=== PATIENT | female | born 1975 ===

== ENCOUNTER → 2020-04-16 09:29 | Outpatient (BNVA) | payer OTHER, SELFPAY | PROVIDERS: Visit Provider Advanced Practice Midwife | DX: L30.9 Dermatitis, unspecified (principal) | CPT/HCPCS: 99212 ==

== ENCOUNTER → 2020-06-24 08:22 | Outpatient (BNVA) | payer OTHER, SELFPAY | PROVIDERS: PCP Internal Medicine; Visit Provider Obstetrics & Gynecology | DX: N39.3 Stress incontinence (female) (male) (principal) | CPT/HCPCS: 99212 ==

== ENCOUNTER → 2020-07-11 15:18 | Outpatient (BNVA) | payer OTHER, SELFPAY | PROVIDERS: Visit Provider Obstetrics & Gynecology | DX: Z13.89 Encounter for screening for other disorder (principal) | CPT/HCPCS: Q3014 ==

== ENCOUNTER 2020-09-22 09:10 | Outpatient (REF) | payer OTHER, SELFPAY ==
[2020-09-22 10:53] LABS: Hemoglobin 12.5 g/dl (12.0-16.0); Mean Corpuscular HGB Conc 32.1 g/dl (31.0-35.0); Mean Corpuscular Hemoglobin 26.5 pg (27.0-33.0); Mean Corpuscular Volume 82.6 fL (80-98); Platelet Count 351 X10*3/uL (160-400); Red Blood Count 4.72 X10*6/uL (4.20-5.50); Red Cell Distribution Width 14.5 % (11.0-16.0); White Blood Count 9.4 X10*3/uL (4.8-10.8)
[2020-09-22 11:25] LABS: HCG Quantitative < 2 mIU/mL; TSH reflex Free T4 1.15 uIU/mL (0.32-4.0)
[2020-09-22 17:22] LABS: CT PCR NOT DETECTED (Not Detect.); NG PCR NOT DETECTED (Not Detect.)
[2020-09-25 20:47] LABS: HPV mRNA E6/E7 rflx Not Detected (Not Detected)
== END 2020-09-22 09:11 | disposition home or self-care (01) ==
LOC: HO.LAB 09:10
PROVIDERS: PCP Internal Medicine; Visit Provider Obstetrics & Gynecology
DX: Z01.411 Encounter for gynecological examination (general) (routine) with abnormal findings (principal); Z11.51 Encounter for screening for human papillomavirus (HPV); Z11.3 Encounter for screening for infections with a predominantly sexual mode of transmission; N92.1 Excessive and frequent menstruation with irregular cycle; N93.9 Abnormal uterine and vaginal bleeding, unspecified
CPT/HCPCS: 36415; 84443; 84702; 85027; 87491; 87591; 87624; 88142

== ENCOUNTER 2020-10-15 13:10 | Outpatient (REF) | payer OTHER, SELFPAY ==
--- NOTE | ~2020-10-15 | US_ITS ---
EXAMINATION: PELVIC ULTRASOUND CLINICAL INFORMATION: Abnormal bleeding COMPARISON: Previous CT of the abdomen and pelvis July 2020 and pelvic ultrasound August 2019 TECHNIQUE: Transabdominal and transvaginal pelvic ultrasound was performed. Transvaginal exam was performed for better visualization of the uterus and ovaries. FINDINGS: The uterus is anteverted and measures 10.6 x 4.5 x 5.7 cm in dimension. No focal uterine lesion is seen. Endometrial thickness is normal measuring 1 cm. There are nabothian cysts in the cervix. Right ovary measures 2.8 x 1.4 x 1.6 cm. There is a small 2 to 3 mm echogenic focus in the right ovary of uncertain clinical significance. The right ovary is otherwise normal. The left ovary measures 3 x 2 x 2.2 cm. There is a 2 x 1.6 x 1.5 cm complex left ovarian cyst with solid echogenic component and a 1 x 1.3 x 1.5 cm simple left ovarian cyst. There is no fluid in the pelvis. US/US pelvic and transvaginal IMPRESSION: Normal-appearing uterus and endometrium. 2 left ovarian cysts, largest a 2 x 1.6 x 1.5 cm complex cyst.
== END 2020-10-15 13:11 | disposition home or self-care (01) ==
LOC: HO.US 13:10
PROVIDERS: Visit Provider Obstetrics & Gynecology
DX: N93.9 Abnormal uterine and vaginal bleeding, unspecified (principal)
CPT/HCPCS: 76830; 76856

== ENCOUNTER 2020-10-29 10:12 | Outpatient (REF) | payer OTHER, SELFPAY | END 2020-10-29 10:13 | disposition home or self-care (01) | LOC: HO.LAB 10:12 | PROVIDERS: PCP Internal Medicine; Visit Provider Obstetrics & Gynecology | DX: N92.1 Excessive and frequent menstruation with irregular cycle (principal); L91.8 Other hypertrophic disorders of the skin | CPT/HCPCS: 58100; 88305 ==

== ENCOUNTER → 2020-11-05 12:51 | Outpatient (BNVA) | payer OTHER, SELFPAY | PROVIDERS: Visit Provider Obstetrics & Gynecology | DX: N85.02 Endometrial intraepithelial neoplasia [EIN] (principal); Z98.890 Other specified postprocedural states | CPT/HCPCS: 99212 ==

== ENCOUNTER 2020-11-11 11:05 | Outpatient (REF) | payer OTHER, SELFPAY ==
[2020-11-12 09:36] LABS: BV Int Neg Control Negative (Negative); BV Int Pos Control Positive (Positive)
== END 2020-11-11 11:06 | disposition home or self-care (01) ==
LOC: HO.LAB 11:05
PROVIDERS: Visit Provider Advanced Practice Midwife
DX: N89.8 Other specified noninflammatory disorders of vagina (principal)
CPT/HCPCS: 87480; 87510; 87660; 99212

== ENCOUNTER 2020-12-09 13:23 | Outpatient (REF) | payer OTHER, SELFPAY ==
--- NOTE | ~2020-12-09 | MM_ITS ---
EXAMINATION: MM SCREENING DIGITAL BREAST TOMOSYNTHESIS, BILATERAL CLINICAL INFORMATION: Screening. Asymptomatic. The lifetime risk of breast cancer based on the Tyrer-Cuzick Model is 9%. COMPARISON: Mammography: 12/04/2019, 09/21/2018, 09/18/2015 TECHNIQUE: Digital breast tomosynthesis is performed in both the craniocaudal and mediolateral oblique views along with computer-aided detection (CAD). Synthesized 2D images are generated from the tomosynthesis. FINDINGS: There are scattered areas of fibroglandular density (ACR BI-RADS breast composition Category b). There are no significant masses, abnormal calcifications, or other abnormalities. Parenchymal pattern is similar to prior exam. No developing density. There is intramammary node again seen posterior upper outer left breast. The axilla and skin contours are unremarkable. MM/MM tomosynthesis screening BI IMPRESSION: No mammographic evidence of malignancy. ASSESSMENT: BI-RADS 2: Benign RECOMMENDATION: Routine annual mammography screening. This patient's information was entered into a reminder system with a target due date for their next mammogram.
== END 2020-12-09 13:24 | disposition home or self-care (01) ==
LOC: HO.MAMMO 13:23
PROVIDERS: Visit Provider Internal Medicine
DX: Z12.31 Encounter for screening mammogram for malignant neoplasm of breast (principal)
CPT/HCPCS: 77063; 77067

== ENCOUNTER 2021-10-02 21:46 | Emergency (ER) | payer OTHER, SELFPAY ==
[2021-10-02 22:46] VITALS: BP 161/98; PULSE 84; RESP 18; TEMP 37.1; O2SAT 100; BMI 30.6
[2021-10-02 23:13] LABS: Basophils Percent Auto 0.3 % (0-2); Eosinophils Absolute Auto 0.1 X10*3/uL (0.0-0.4); Eosinophils Percent Auto 1.3 % (0-4); Hematocrit 41.4 % (37.0-47.0); Imm Gran Abs Auto 0.02 X10*3/uL (0.00-0.03); Imm Gran Pct Auto 0.2 % (0.0-0.4); Lymphocytes Absolute Auto 3.6 X10*3/uL (1.2-4.9); Lymphocytes Percent Auto 41.7 % (20-40); MANUAL DIFF FLAG NO; Mean Corpuscular HGB Conc 33.8 g/dl (31.0-35.0); Mean Corpuscular Hemoglobin 28.1 pg (27.0-33.0); Mean Corpuscular Volume 83.1 fL (80.0-98.0); Mean Platelet Volume 9.6 fL (9.4-12.3); Monocytes Absolute Auto 0.6 X10*3/uL (0.1-1.2); Neutrophils Absolute Auto 4.3 x10*3/uL (2.0-8.3); Neutrophils Percent Auto 49.5 % (45-73); Platelet Count 372 X10*3/uL (160-400); Red Blood Count 4.98 X10*6/uL (4.20-5.50); Red Cell Distribution Width 12.4 % (11.0-16.0); White Blood Count 8.6 X10*3/uL (4.8-10.8)
[2021-10-02 23:14] LABS: Appearance Urine CLEAR; Color Urine STRAW; Glucose Urine UA NEG (NEG); Leukocyte Esterase Urine NEG (NEG); Nitrite Urine NEG (NEG); Specific Gravity - Urine <= 1.005 (1.005-1.025); Urine Blood NEG (NEG); Urine Ketones NEG (NEG); Urine Protein NEG (NEG-TRACE)
[2021-10-02 23:36] LABS: Alanine Aminotransferase 18 U/L (0-31); Albumin Level 4.9 g/dL (3.5-5.0); Alkaline Phosphatase 83 U/L (39-117); Anion Gap 15 (12-20); Aspartate Amino Transferase 21 U/L (5-31); Bilirubin Total 1.1 mg/dL (0.0-1.0); Blood Urea Nitrogen 13 mg/dL (9-16); Calcium 10.1 mg/dL (8.4-10.2); Carbon Dioxide 29 mmol/L (22-29); Chloride 98 mmol/L (96-108); Creatinine Clr Calc Pharmacy 97.8; Estimated Glomerular Filt Rate > 60; Glucose Random 102 mg/dL (60-115); Potassium 3.5 mmol/L (3.3-5.1); Sodium 138 mmol/L (135-145); Total Protein 8.1 g/dL (6.5-8.0)
--- NOTE | 2021-10-02 23:39 | ECG_ITS ---
Test Reason : HYPERTENTION Blood Pressure : / mmHG Vent. Rate : 072 BPM Atrial Rate : 072 BPM P-R Int : 188 ms QRS Dur : 090 ms QT Int : 416 ms P-R-T Axes : 018 031 -01 degrees QTc Int : 455 ms Normal sinus rhythm Nonspecific ST abnormality Abnormal ECG No previous ECGs available Referred By: Leatha Jacob Electronically Signed By:SHERRY WILLIAM MD
[2021-10-02 23:47] VITALS: BP 135/89; PULSE 73; RESP 18; O2SAT 98
--- NOTE | 2021-10-03 00:04 | ED_ITS ---
HPI - General Adult General Chief complaint: General Medical Stated complaint: High blood pressure Time Seen by Provider: 10/02/21 23:36 Source: patient Mode of arrival: ambulatory Limitations: no limitations History of Present Illness HPI narrative: Patient comes to the emergency room complaining of labile blood pressure. Patient states that she has been seen by her primary care physician, patient is currently taking hydrochlorothiazide and p.r.n. lisinopril. Today patient was started on losartan. They are still trying to stabilize patient's blood pressure. On arrival, blood pressure was 161/98, an hour later it was 135/89. Patient states that she feels ?strange? States she has no headache, no blurred vision. Patient has very nonspecific symptoms. Related Data Home Medications Medication Instructions Recorded Confirmed clonazepam 0.5 mg tablet 0.5 mg PO DAILY PRN 06/24/20 diphenhydramine HCl 25 mg tablet 25 mg PO BEDTIME 06/24/20 hydroxyzine pamoate 25 mg capsule 25 mg PO BID 06/24/20 loratadine 10 mg tablet 10 mg PO DAILY 06/24/20 meclizine 25 mg tablet mg PO 06/24/20 melatonin 5 mg tablet 0 mg PO 06/24/20 multivitamin 1 tab PO DAILY 06/24/20 rosuvastatin 10 mg tablet 10 mg PO DAILY 06/24/20 sertraline 100 mg tablet 300 mg PO Q OTHER DAY PRN 06/24/20 Previous Rx's Medication Instructions Recorded miconazole nitrate 2 % vaginal 1 appful vaginal BEDTIME 7 days 11/11/20 cream (Miconazole-7) #45 grams Allergies Allergy/AdvReac Type Severity Reaction Status Date / Time No Known Allergies Allergy Verified 11/11/20 11:47 [No Known Allergies*] Review of Systems Review of Systems: Constitutional : No Weight loss, No Fever, No Chills, No Night Sweats, No Fatigue, No Malaise ENT/Mouth : No Hearing loss, No Ear Pain, No Nasal Congestion, No Sinus Pain, No Hoarseness, No sore throat, No Rhinorrhea, No Swallowing Difficulty Eyes: No Eye Pain, No Swelling, No Redness, No Foreign Body, No Discharge, No Vision Changes Cardiovascular : No Chest Pain, No SOB, No Dyspnea on Exertion, No Orthopnea, No Edema, No Palpitations, complaining of labile blood pressures Respiratory : No Cough, No Sputum, No Wheezing, No Smoke Exposure, No Dyspnea Gastrointestinal : No Nausea, No Vomiting, No Diarrhea, No Constipation, No abdominal Pain, No Hematochezia, No Melena Genitourinary : no irregular bleeding, No Dysuria, No Urinary Frequency, No Hematuria, No Urinary Incontinence, No Urgency, No Flank Pain, No Urinary Flow Changes, No Hesitancy Musculoskeletal : No joint pain, No Myalgias, No Joint Swelling Skin : No Skin Lesions, No rash Neuro : No Weakness, No Numbness, No Paresthesias, No Loss of Consciousness, No Dizziness, No Headache Psych : No Anxiety/Panic, No Depression, No SI/HI/AH/VH, No Social Issues, Heme/Lymph: No Bruising, No Bleeding,No Lymphadenopathy Endocrine : No Polyuria, No Polydipsia, No Temperature Intolerance [facility] Past Medical History Medical History Aneurysm Dysplasia of cervix, low grade (MORIS 1) HTN (hypertension) Surgical History H/O LEEP History of bilateral tubal ligation Family History Family History Father Colon cancer Social History Social History Alcohol intake: never Patient Tobacco Use Status: Never used Tobacco Use of substances other than those prescribed or required for medical reasons: No Patient : No Gender identity: Female Physical Exam ED Vital Signs: Vital Signs - 24 hr 10/02/21 22:46 10/02/21 23:47 Temperature 98.8 F Pulse Rate 84 73 Respiratory Rate 18 18 Blood Pressure 161/98 H 135/89 Pulse Oximetry 100 98 Oxygen Delivery Method Room Air Room Air BMI result Body Mass Index 30.6 Const Other: Appearance: Alert. Oriented X3. No acute distress. Well appearing, playing in the room with her partner with the otoscope an ophthalmoscope Eyes: Pupils equal, round and reactive to light. ENT: Pharynx normal. Neck: Normal inspection. Neck supple. No lymph nodes noted. No crepitus CVS: Normal heart rate and rhythm. Pulses normal. Normal S1 and S2 Respiratory: No respiratory distress. Breath sounds normal. No Wheezing. No rales Abdomen: Soft and nontender. No rigidity. No distention. Skin: Skin warm and dry. Normal skin color. Normal skin turgor. Extremities: No lower extremity edema. No Lacerations. No Rash Neuro: Oriented X 3. No motor deficit. No sensory deficit. Moving all extremities. No slurred speech. CN 2 through 12 grossly intact Psych: calm, cooperative, normal affect Course Course Course Narrative: At this time, patient's blood pressure is slightly elevated, but not dangerously elevated, patient has no neurological symptoms. Patient is being followed closely by her primary care physician, patient was given a new blood pressure medication, losartan which she has not started yet, 1st dose will be tomorrow. EKG: Normal sinus rhythm, heart rate 72, no ST changes, QTC 455 Medical Decision Making Lab Data Result diagrams: 10/02/21 23:07 10/02/21 23:06 Labs: Lab Results 10/02/21 10/02/21 10/02/21 Range/Units 23:06 23:06 23:07 WBC 8.6 (4.8-10.8) X10*3/uL RBC 4.98 (4.20-5.50) X10*6/uL Hgb 14.0 (12.0-16.0) g/dl Hct 41.4 (37.0-47.0) % MCV 83.1 (80.0-98.0) fL MCH 28.1 (27.0-33.0) pg MCHC 33.8 (31.0-35.0) g/dl RDW 12.4 (11.0-16.0) % Plt Count 372 (160-400) X10*3/uL MPV 9.6 (9.4-12.3) fL Immature Gran % (Auto) 0.2 (0.0-0.4) % Neut % (Auto) 49.5 (45-73) % Lymph % (Auto) 41.7 H (20-40) % Mineral % (Auto) 7.0 (2-11) % Eos % (Auto) 1.3 (0-4) % Baso % (Auto) 0.3 (0-2) % Lymph # (Auto) 3.6 (1.2-4.9) X10*3/uL Mineral # (Auto) 0.6 (0.1-1.2) X10*3/uL Eos # (Auto) 0.1 (0.0-0.4) X10*3/uL Baso # (Auto) 0.0 (0.0-0.2) X10*3/uL Abs Immat Gran (auto) 0.02 (0.00-0.03) X10*3/uL Absolute Neuts (auto) 4.3 (2.0-8.3) x10*3/uL Absolute Nucleated RBC 0.000 (0.0-0.012) X10*3/uL Nucleated RBC % (auto) 0.0 (0.0-0.2) /100WBC Sodium 138 (135-145) mmol/L Potassium 3.5 (3.3-5.1) mmol/L Chloride 98 (96-108) mmol/L Carbon Dioxide 29 (22-29) mmol/L Anion Gap 15 (12-20) BUN 13 (9-16) mg/dL Creatinine 0.81 (0.5-1.4) mg/dL Estim Creat Clear Calc 97.8 Estimated GFR > 60 Random Glucose 102 (60-115) mg/dL Calcium 10.1 (8.4-10.2) mg/dL Total Bilirubin 1.1 H (0.0-1.0) mg/dL AST 21 (5-31) U/L ALT 18 (0-31) U/L Alkaline Phosphatase 83 (39-117) U/L Total Protein 8.1 H (6.5-8.0) g/dL Albumin 4.9 (3.5-5.0) g/dL Urine Color STRAW Urine Appearance CLEAR Urine pH 6.0 (5.0-8.0) Ur Specific [place] <= 1.005 (1.005-1.025) Urine Protein NEG (NEG-TRACE) MG/DL Urine Glucose (UA) NEG (NEG) MG/DL Urine Ketones NEG (NEG) MG/DL Urine Blood NEG (NEG) Urine Nitrite NEG (NEG) Ur Leukocyte Esterase NEG (NEG) Discharge Plan Discharge Clinical Impression: Labile blood pressure Patient Disposition: Home, Self-Care Instructions: Hypertension (ED) Additional Instructions: Please follow-up with your primary care physician tomorrow. If you have any worsening or new symptoms, please return to the emergency room or call 911 Prescriptions: No Action melatonin 5 mg tablet 0 mg PO rosuvastatin 10 mg tablet 10 mg PO DAILY hydroxyzine pamoate 25 mg capsule 25 mg PO BID loratadine 10 mg tablet 10 mg PO DAILY diphenhydramine HCl 25 mg tablet 25 mg PO BEDTIME sertraline 100 mg tablet 300 mg PO Q OTHER DAY PRN clonazepam 0.5 mg tablet 0.5 mg PO DAILY PRN meclizine 25 mg tablet PO multivitamin Tablet 1 tab PO DAILY miconazole nitrate [Miconazole-7] 2 % cream 1 appful vaginal BEDTIME 7 Days Qty: 45 3RF
[2021-10-03 00:48] VITALS: BP 133/85; PULSE 66; RESP 16; O2SAT 96
== END 2021-10-03 00:50 | disposition home or self-care (01) ==
PROVIDERS: Emergency Provider Emergency Medicine; PCP Internal Medicine
DX: R09.89 Other specified symptoms and signs involving the circulatory and respiratory systems (principal); I10 Essential (primary) hypertension; Z79.899 Other long term (current) drug therapy
CPT/HCPCS: 36415; 80053; 81003; 85025; 93005; 99283; 99284

== ENCOUNTER 2021-12-15 12:46 | Outpatient (REF) | payer OTHER, SELFPAY ==
--- NOTE | ~2021-12-15 | MM_ITS ---
EXAMINATION: MM SCREENING DIGITAL BREAST TOMOSYNTHESIS, BILATERAL CLINICAL INFORMATION: Screening. Asymptomatic. The lifetime risk of breast cancer based on the Tyrer-Cuzick Model is 8%. COMPARISON: Mammography: 12/09/2020, 12/04/2019, 09/21/2018 TECHNIQUE: Digital breast tomosynthesis is performed in both the craniocaudal and mediolateral oblique views along with computer-aided detection (CAD). Synthesized 2D images are generated from the tomosynthesis. FINDINGS: There are scattered areas of fibroglandular density (ACR BI-RADS breast composition Category b). There are no significant masses, abnormal calcifications, or other abnormalities. Parenchymal pattern is similar to prior studies. There is no developing density or architectural abnormality. Again, there is intramammary node posterior upper outer left breast. The axilla and skin contours are unremarkable. No significant changes. MM/MM tomosynthesis screening BI IMPRESSION: No mammographic evidence of malignancy. ASSESSMENT: BI-RADS 2: Benign RECOMMENDATION: Routine annual mammography screening. This patient's information was entered into a reminder system with a target due date for their next mammogram.
== END 2021-12-15 12:47 | disposition home or self-care (01) ==
LOC: HO.MAMMO 12:46
PROVIDERS: PCP Internal Medicine; Visit Provider Family Medicine
DX: Z12.31 Encounter for screening mammogram for malignant neoplasm of breast (principal)
CPT/HCPCS: 77063; 77067

== ENCOUNTER 2022-02-26 10:19 | Outpatient (REF) | payer OTHER, SELFPAY ==
--- NOTE | ~2022-02-26 | XR_ITS ---
EXAMINATION: XR KNEE, LEFT CLINICAL INFORMATION: Pain COMPARISON: Previous x-ray February 2016 TECHNIQUE: Four views of the left knee. FINDINGS: Bones and soft tissues are normal. No fracture or joint effusion. Alignment is anatomic. Joint spaces are well maintained. No abnormal soft tissue calcification. XR/XR knee LT 4V IMPRESSION: Normal left knee.
== END 2022-02-26 10:20 | disposition home or self-care (01) ==
LOC: HO.XRAY 10:19
PROVIDERS: PCP Internal Medicine; Visit Provider Internal Medicine
DX: M25.562 Pain in left knee (principal)
CPT/HCPCS: 73564

== ENCOUNTER 2022-04-07 12:57 | Outpatient (REF) | payer OTHER, SELFPAY ==
--- NOTE | ~2022-04-07 | US_ITS ---
EXAMINATION: ULTRASOUND LEFT KNEE CLINICAL INFORMATION: Left knee pain. COMPARISON: Knee radiographs 02/26/2022. TECHNIQUE: Ultrasound was performed in the area of clinical concern in the left popliteal fossa. FINDINGS: An abnormal fluid collection is not seen. The popliteal vein and artery appear normal. US/US extremity nonvascular IMPRESSION: No abnormality is seen.
== END 2022-04-07 12:58 | disposition home or self-care (01) ==
LOC: HO.US 12:57
PROVIDERS: Visit Provider Internal Medicine
DX: M25.562 Pain in left knee (principal)
CPT/HCPCS: 76882

== ENCOUNTER 2022-09-02 07:52 | Outpatient (REF) | payer OTHER, SELFPAY ==
--- NOTE | ~2022-09-02 | XR_ITS ---
EXAMINATION: XR KNEE AP STANDING CLINICAL INFORMATION: Pain COMPARISON: Previous left knee x-ray February 2022 TECHNIQUE: AP bilateral standing view of the knees was obtained. FINDINGS: Bone alignment is normal. No fracture or dislocation. Normal joint spaces. Normal soft tissues. XR/XR knee standing BI IMPRESSION: Normal knees.
== END 2022-09-02 07:53 | disposition home or self-care (01) ==
LOC: HO.HOSX 07:52
PROVIDERS: Visit Provider Physician Assistant
DX: M54.16 Radiculopathy, lumbar region (principal)
CPT/HCPCS: 73565; 99202

== ENCOUNTER 2022-10-15 10:00 | Outpatient (RCR) | payer OTHER, SELFPAY | END 2022-10-15 10:56 | disposition home or self-care (01) | LOC: HO.PT 10:00 | PROVIDERS: PCP Internal Medicine; Visit Provider Nurse Practitioner Primary Care | DX: M25.562 Pain in left knee (principal); M54.50 Low back pain, unspecified | CPT/HCPCS: 97110; 97140; 97162 ==

== ENCOUNTER 2022-11-01 09:58 | Outpatient (AMB) | payer OTHER, SELFPAY ==
--- NOTE | 2022-11-01 10:12 | MHC.OFFVIS ---
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 No complaints. 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) HTN (hypertension) Surgical History (Updated 11/01/22 @ 10:26 by Eder Kurtz MD) H/O LEEP History of bilateral tubal ligation History of hysterectomy Family History (Updated 11/01/22 @ 10:19 by Kelsi Luna CMA) Father Colon cancer Mother HTN (hypertension) Social History (Updated 11/01/22 @ 10:20 by Kelsi Luna CMA) Household Members: Family Housing: House Alcohol intake: never Patient Tobacco Use Status: Former Tobacco user service: No Current occupational status: unemployed Sexually active: Yes Sexual orientation: Straight/Heterosexual Gender identity: Female Female Reproductive History Menstrual Age of Menarche: 13 Menopause type: surgical Total pregnancies: 3 Full term: 3 Number of Living Children: 3 Date of Mammogram: 12/15/21 Review of Systems Const All systems reviewed & are unremarkable except as noted in HPI and below Card Reports as per HPI and Reports no additional complaints Resp Reports as per HPI and Reports no additional complaints GI Reports as per HPI and Reports no additional complaints Reports as per HPI Physical Exam Vital Signs: Last Vital Signs BP 124/78 11/01/22 10:14 BMI result Body Mass Index 30.7 Const General: cooperative, healthy appearing and comfortable General: Yes bladder normal to palpation External Female Exam: No lesion Speculum Exam - Vagina: normal appearance of the vagina, normal vaginal discharge and not erythematous Speculum Exam - Cervix: Cervix absent Bimanual exam- vagina & uterus: bladder normal to palpation and uterus absent Bimanual Exam- Adnexa, other: Other (No masses detected) Assessment & Plan Assessment & Plan (1) Well woman exam: Comment: MORIS 3 in 2016 status post LEEP with positive margin MORIS 1 in 2017 Status post hysterectomy Code(s): Z01.419 - Encounter for gynecological examination (general) (routine) without abnormal findings Plan: Cotesting not indicated this year. Mammogram ordered for 01/01. Counseled the patient about the recommended dietary allowance of 1000 mg of Calcium & 600 IU of vitamin D. The patient was instructed to perform monthly self-breast exams and to schedule an annual exam in a year; will refer the GI for screening colonoscopy. All questions answered and the patient verbalized understanding. Instructed the patient to schedule annual exam in a year Orders: Orders MM screening mammo BI Today Z12.31 - Encounter for screening mammogram for malignant neoplasm of breast Referrals Gastroenterology Referral Z12.11 - Encounter for screening for malignant neoplasm of colon Coding Level of Care Code Est Pt Prev Care 40-64y(70851) Diagnoses Well woman exam Z01.419
[2022-11-01 10:14] VITALS: BP 124/78; BMI 30.7
== END 2022-11-01 10:33 | disposition home or self-care (01) ==
LOC: HO.HWS 09:58
PROVIDERS: PCP Internal Medicine; Visit Provider Obstetrics & Gynecology
DX: Z01.419 Encounter for gynecological examination (general) (routine) without abnormal findings (principal)
CPT/HCPCS: 99396

== ENCOUNTER → 2022-11-01 09:58 | Outpatient (BNVA) | payer OTHER, SELFPAY | PROVIDERS: PCP Internal Medicine; Visit Provider Obstetrics & Gynecology ==

== ENCOUNTER 2022-12-28 12:35 | Outpatient (REF) | payer OTHER, SELFPAY ==
--- NOTE | ~2022-12-28 | MM_ITS ---
EXAMINATION: MM SCREENING DIGITAL BREAST TOMOSYNTHESIS, BILATERAL CLINICAL INFORMATION: Screening. Asymptomatic. COMPARISON: Mammography: This study is compared with prior exams dating back to 2016. TECHNIQUE: Digital breast tomosynthesis is performed in both the craniocaudal and mediolateral oblique views along with computer-aided detection (CAD). Synthesized 2D images are generated from the tomosynthesis. FINDINGS: There are scattered areas of fibroglandular density (ACR BI-RADS breast composition Category b). There are no significant masses, abnormal calcifications, or other abnormalities. MM/MM tomosynthesis screening BI IMPRESSION: No mammographic evidence of malignancy. ASSESSMENT: BI-RADS BI-RADS 1 - Negative RECOMMENDATION: Routine annual mammography screening. 1 year F/U This examination should not preclude the clinical evaluation of a suspicious palpable abnormality. This patient's information was entered into a reminder system with a target due date for their next mammogram.
== END 2022-12-28 12:36 | disposition home or self-care (01) ==
LOC: HO.MAMMO 12:35
PROVIDERS: PCP Internal Medicine; Visit Provider Internal Medicine
DX: Z12.31 Encounter for screening mammogram for malignant neoplasm of breast (principal)
CPT/HCPCS: 77063; 77067

== ENCOUNTER → 2022-12-28 13:00 | Outpatient (BNV) | payer OTHER, SELFPAY | PROVIDERS: PCP Internal Medicine; Visit Provider Radiology Diagnostic Radiology | DX: Z12.31 Encounter for screening mammogram for malignant neoplasm of breast (principal) | CPT/HCPCS: 77063; 77067 ==

== ENCOUNTER → 2023-01-05 13:23 | Outpatient (BNVA) | payer OTHER, SELFPAY | PROVIDERS: PCP Internal Medicine; Visit Provider Nurse Practitioner Family ==

== ENCOUNTER 2023-03-24 10:12 | Outpatient (REF) | payer OTHER, SELFPAY ==
[2023-03-24 12:17] LABS: Alanine Aminotransferase 14 U/L (0-31); Albumin Level 4.5 g/dL (3.5-5.0); Alkaline Phosphatase 64 U/L (39-117); Anion Gap 13 (12-20); Aspartate Amino Transferase 17 U/L (5-31); Bilirubin Direct 0.2 mg/dL (0.0-0.5); Blood Urea Nitrogen 8 mg/dL (9-16); Calcium 9.6 mg/dL (8.4-10.2); Carbon Dioxide 26 mmol/L (22-29); Chloride 102 mmol/L (96-108); Estimated Glomerular Filt Rate > 60; Glucose Random 93 mg/dL (60-115); Sodium 137 mmol/L (135-145); Total Protein 7.8 g/dL (6.5-8.0)
[2023-03-24 12:26] LABS: Cholesterol 205 mg/dL (<200); HDL Cholesterol 35 mg/dL (>40); LDL Cholesterol Calculated 131 mg/dL (<100); Triglycerides 197 mg/dL (<150)
[2023-03-24 12:33] LABS: Reflex LDLD? No
== END 2023-03-24 10:13 | disposition home or self-care (01) ==
LOC: HO.HHCL 10:12
PROVIDERS: Visit Provider Internal Medicine
DX: I10 Essential (primary) hypertension (principal); E78.2 Mixed hyperlipidemia
CPT/HCPCS: 36415; 80048; 80061; 80076

== ENCOUNTER 2023-04-01 12:51 | Outpatient (REF) | payer OTHER, SELFPAY ==
--- NOTE | ~2023-04-01 | US_ITS ---
EXAMINATION: US DIAGNOSTIC ULTRASOUND BREAST, LEFT CLINICAL INFORMATION: Palpable abnormality in left axillary region.. COMPARISON: None available. TECHNIQUE: Ultrasound of the axillary tail of the left breast and axilla is performed with real-time soliz scale imaging and color Doppler. FINDINGS: There is no focal suspicious finding. There is no solid mass, architectural abnormality, duct ectasia, or edema in the soft tissue planes. There are normal-appearing axillary lymph nodes without thickened cortices, and a solitary normal-appearing lymph node in the axillary tail. The patient appears to be feeling the left axillary fat pad. US/US breast LT limited mamm only IMPRESSION: No suspicious findings. Normal lymph nodes in the axilla and axillary tail of the left breast. The patient appears to be palpating/feeling the left axillary fat pad. ASSESSMENT: BI-RADS 2: Benign RECOMMENDATION: Routine annual mammography screening. This patient's information was entered into a reminder system with a target due date for their next mammogram.
== END 2023-04-01 12:52 | disposition home or self-care (01) ==
LOC: HO.MAMMO 12:51
PROVIDERS: Visit Provider Internal Medicine
DX: R22.32 Localized swelling, mass and lump, left upper limb (principal)
CPT/HCPCS: 76642

== ENCOUNTER → 2023-04-01 13:00 | Outpatient (BNV) | payer OTHER, SELFPAY | PROVIDERS: Visit Provider Radiology Diagnostic Radiology | DX: N63.20 Unspecified lump in the left breast, unspecified quadrant (principal) | CPT/HCPCS: 76642 ==

== ENCOUNTER 2023-04-06 12:43 | Outpatient (AMB) | payer OTHER, SELFPAY ==
--- NOTE | 2023-04-06 12:54 | MHC.OFFVIS ---
Intake Intake Visit Reasons: lump Lt armpit Intake Note: This patient presents for an assessment for left axillary lump. Patient c/o; reports occasional discomfort, reports no redness, left axilla. Solution Mixer Required: No Accompanied by: Self / Same As Patient Allergies No Known Allergies [No Known Allergies*] Allergy (Verified 04/06/23 12:59) Medication List - Last Reconciled 04/06/23 by Juvenal Kapoor MD bisacodyl (Dulcolax (bisacodyl)) 10 mg (2 x 5 mg) PO ONCE 1 day cholecalciferol (vitamin D3) 25 mcg PO DAILY clonazepam 0.5 mg PO DAILY PRN diclofenac sodium 75 mg PO BID hydrochlorothiazide 25 mg PO DAILY hydroxyzine pamoate 25 mg PO BID losartan 25 mg PO DAILY meclizine mg PO melatonin 0 mg PO mirtazapine 7.5 mg PO BEDTIME multivitamin 1 tab PO DAILY polyethylene glycol 3350 (Miralax) 238 grams PO ONCE rosuvastatin 20 mg PO BEDTIME sertraline 300 mg PO Q OTHER DAY PRN HPI lump Lt armpit HPI Details 47-year-old female referred for a lump? on her left armpit. She says that she thinks she may have noticed this for about 4 months now. She denies any or tenderness. She just feels that sometimes it looks bigger than usual She was sent for an ultrasound of the soft tissue by her primary care physician and this just showed normal-looking axillary fat pad. She denies any drainage or skin changes. [facility] Medical History (Updated 04/06/23 @ 13:15 by Juvenal Kapoor MD) Mass of left axilla 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, low grade (MORIS 1) Aneurysm HTN (hypertension) Surgical History History of hysterectomy History of bilateral tubal ligation H/O LEEP Family History Father Colon cancer Mother HTN (hypertension) Social History Household Members: Family Housing: House Alcohol intake: never Patient Tobacco Use Status: Former Tobacco user service: No Current occupational status: unemployed Sexual orientation: Straight/Heterosexual Gender identity: Female Female Reproductive History Menstrual Age of Menarche: 13 Review of Systems Const Denies chills and Denies fever(s) Card Denies chest pain, Denies dyspnea and Denies dyspnea on exertion Resp Denies cough, Denies dyspnea and Denies dyspnea on exertion GI Denies hematochezia and Denies change in bowel habits Denies hematuria Musc Denies back pain and Denies limited range of motion Neuro Denies focal weakness and Denies convulsions Psych Denies depression and Denies mood swings Physical Exam Const General: comfortable and no acute distress Orientation/consciousness: patient oriented x3 Neck Neck: Yes no lymphadenopathy Resp Auscultation: clear to auscultation bilaterally Cardio Rhythm: regular rhythm GI Palpation (GI): Soft to palpation, nontender and no guarding Neuro General: patient oriented x3 Extrem Other: Left axilla - very prominent subcutaneous fat, no obvious discrete mass, no skin changes, no induration Assessment & Plan Assessment & Plan (1) Mass of left axilla: Code(s): R22.32 - Localized swelling, mass and lump, left upper limb Plan: She appears to have a very prominent subcutaneous fat pad in the left axilla. I do not feel any discrete mass otherwise. There is evidence of any skin changes She had an ultrasound showing normal-looking subcutaneous fat in the area. I therefore assured her about the above findings. I did tell her that if she feels worsening or any symptoms, she is free to come back to the office to be re-evaluated. She is comfortable with the plan. Coding Level of Care Code New Pt Level 3 (32455) Diagnoses Mass of left axilla R22.32
== END 2023-04-06 13:14 | disposition home or self-care (01) ==
PROVIDERS: PCP Internal Medicine; Visit Provider Surgery
DX: R22.32 Localized swelling, mass and lump, left upper limb (principal)
CPT/HCPCS: 99203

== ENCOUNTER → 2023-04-06 12:43 | Outpatient (BNVA) | payer OTHER, SELFPAY | PROVIDERS: PCP Internal Medicine; Visit Provider Surgery | DX: R22.32 Localized swelling, mass and lump, left upper limb (principal) | CPT/HCPCS: 99202 ==

== ENCOUNTER 2023-05-12 09:09 | Day surgery (SDC) | payer OTHER, SELFPAY ==
[2023-05-12 09:22] VITALS: BMI 29.7
[2023-05-12 09:38] VITALS: BP 152/99; PULSE 84; RESP 20; TEMP 36.6; O2SAT 98
[2023-05-12] MEDS: Lactated Ringers 1,000 ML 50 ML IVCONT (09:41)
--- NOTE | 2023-05-12 09:50 | HO.ANESPROP2 ---
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 Sees Dr Chew. Last visit 11/2022. Stable HTN - took HCTZ this morning Past Medical History Medical History (Updated 05/12/23 @ 09:55 by Theodora Escamilla MD) Cerebral aneurysm Mass of left axilla 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, low grade (MORIS 1) HTN (hypertension) Family History Family History Father Colon cancer Mother HTN (hypertension) Family history of problems with anesthesia: No Surgical History Surgical History H/O brain surgery H/O knee surgery History of hysterectomy History of bilateral tubal ligation H/O LEEP History of Problems with Anesthesia: No Social History Social History Household Members: Family Housing: House Alcohol intake: never Patient Tobacco Use Status: Former Tobacco user Are you DNR?: No Advance Directives: No Advance Directives Information Provided: Yes Nutrition Risks: No Nutritional Risk service: No Current occupational status: unemployed Sexual orientation: Straight/Heterosexual Gender identity: Female Meds Allergies Allergy/AdvReac Type Severity Reaction Status Date / Time No Known Allergies Allergy Verified 04/06/23 12:59 [No Known Allergies*] Active Medications: Current Medications Lactated Ringer's (Lr) 1,000 mls @ 50 mls/hr IVCONT .Q20H ESTRELLITA Last Admin: 05/12/23 09:41 Dose: 50 mls/hr Home Medications Medication Instructions Recorded Confirmed Last Taken Type clonazepam 0.5 mg tablet 0.5 mg PO DAILY PRN 06/24/20 04/06/23 Unknown History hydroxyzine pamoate 25 mg capsule 25 mg PO BID 06/24/20 04/06/23 Unknown History meclizine 25 mg tablet mg PO 06/24/20 04/06/23 Unknown History melatonin 5 mg tablet 0 mg PO 06/24/20 04/06/23 Unknown History multivitamin 1 tab PO DAILY 06/24/20 04/06/23 Unknown History sertraline 100 mg tablet 300 mg PO Q OTHER DAY PRN 06/24/20 04/06/23 Unknown History hydrochlorothiazide 25 mg tablet 25 mg PO DAILY 10/27/21 04/06/23 Unknown History losartan 25 mg tablet 25 mg PO DAILY 09/02/22 04/06/23 Unknown History rosuvastatin 20 mg tablet 20 mg PO BEDTIME 09/02/22 04/06/23 Unknown History cholecalciferol (vitamin D3) 25 25 mcg PO DAILY 11/01/22 04/06/23 Unknown History mcg (1,000 unit) capsule diclofenac sodium 75 mg 75 mg PO BID 01/05/23 04/06/23 Unknown History tablet,delayed release mirtazapine 7.5 mg tablet 7.5 mg PO BEDTIME 01/05/23 04/06/23 Unknown History Exam Height,Weight and Vital Signs: Height 5 ft 6 in Weight 83.461 kg Last Vital Signs Temp 98 F 05/12/23 09:38 Pulse 84 05/12/23 09:38 Resp 20 05/12/23 09:38 BP 152/99 H 05/12/23 09:38 Pulse Ox 98 05/12/23 09:38 O2 Del Method Room Air 05/12/23 09:38 Airway Mallampati Class: II TM Dist: >3cm Neck ROM: Full Loose/Missing/Broken Teeth: Yes (Missing some molars. Denies broken or loose teeth) Heart: RRR Lungs: CTAB Assessment and Plan Assessment Anesthesia Assessment: Anesthesia Plan Discussed and Chart Reviewed Final Anesthetic Review Family History of Problems with Anesthesia: No History of Problems with Anesthesia: No NPO: Yes ASA Class: III Final Preanesthetic Review: No Changes in Pt Med Stat, Meds/Allgs Chart Reviewed, Consent Obtained/Reviewed and Anes Risks/Benef Reviewed Patient Risk: Intermediate Procedure Risk: Low Assessment/Block/Sedation in SS: Assess/Block/Sedation-SS Anesthetic Plan Anesthetic Plan: MAC: and TIVA Disposition: Standard PACU
--- NOTE | 2023-05-12 10:06 | P.HPSUR_ITS ---
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, low grade (MORIS 1) HTN (hypertension)) History of Previous Operations: Relevant previous surgery/procedure and date(s) (H/O brain surgery H/O knee surgery History of hysterectomy History of bilateral tubal ligation H/O LEEP) Allergies: Allergies Allergy/AdvReac Type Severity Reaction Status Date / Time No Known Allergies Allergy Verified 04/06/23 12:59 [No Known Allergies*] Review of Systems Sugical H&P ROS: Negative: Constitution, Cardiovascular, Respiratory, Neurological, Psychiatric, Hem-Onc, Allergic/Immunologic, Gastrointestinal, Genitourinary, Musculoskeletal, Integumentary, Endocrine and Eyes/ Ears/Nose/Throat Exam Surgical H&P Exam: Normal: HEENT, Normal: Heart, Normal: Lungs, Normal: Extremities, Normal: Abdomen, Normal: Skin and Normal: Neurological Plan Diagnosis/Plan: Unchanged I have reviewed the history and physical and performed a pertinent physical examination on my patient. No changes have occurred unless specified. Time Spent With Patient Time: Total time managing care of this patient today ____ minutes.
--- NOTE | 2023-05-12 10:19 | P.OP_ITS ---
Operative Note Operative Note Date of Service: 05/12/23 Narrative: Operative Information Procedure Description: Colonoscopy Indication: screening, Fh CRC Anesthesia: MAC COLONOSCOPY Instrument: Olympus variable stiffness pediatric scope 190L Colonoscopy Monitoring: Vital signs and clinical assessment, continuous EKG monitoring, Pulse oximetry, Carbon Dioxide monitoring and blood pressure monitoring were done throughout the procedure. Colon withdrawal time was 7 minutes. Procedure: The patient was placed in the left lateral decubitis position and pre-procedure medications were administered. After a digital rectal examination of the ano-rectum, the video colonoscope was inserted into the rectum and advanced through the colon to the cecum/TI. The colonoscope was slowly withdrawn in a retrograde panoramic fashion and the colon mucosa was carefully examined including a retroflexed view of the rectum. Findings and interventions are described below. Procedure Difficulty: easy Findings: Terminal Ileum-normal Cecum:normal Right sided retroflexion- few tics seen Ascending Colon: normal Transverse Colon -normal Descending Colon:normal Sigmoid Colon: mild diverticulosis Rectum: Retroflexion with small internal hemorrhoids, grade I Anorectum - normal Colon preparation: [place] Bowel Preparation Scale Right colon; 3 Transverse colon: 3 Left colon; 3 (0 = Unprepared colon segment with mucosa not seen due to solid stool that cannot be cleared. 1 = Portion of mucosa of the colon segment seen, but other areas of the colon segment not well seen due to staining, residual stool and/or opaque liquid. 2 = Minor amount of residual staining, small fragments of stool and/or opaque liquid, but mucosa of colon segment seen well. 3 = Entire mucosa of colon segment seen well with no residual staining, small fragments of stool or opaque liquid) Impression and Post Procedure Diagnosis: internal hemorrhoids diverticular disease Plan: High fiber diet leaflet Avoid straining at stool, epsom salts and sitz bath, anusol supps or cream Repeat Colonoscopy in 5 years due to FH of CRC or earlier if clinically indicated Above findings were reviewed with the patient and relevant handouts were provided if indicated.
[2023-05-12 10:51] VITALS: BP 108/78; PULSE 91; RESP 16; TEMP 36.3; O2SAT 97
[2023-05-12 11:06] VITALS: BP 129/88; PULSE 79; RESP 14; O2SAT 98
[2023-05-12 11:19] VITALS: BP 129/89; PULSE 76; RESP 16; TEMP 36.6; O2SAT 99
== END 2023-05-12 11:44 | disposition home or self-care (01) ==
PROVIDERS: PCP Internal Medicine; Visit Provider Internal Medicine Gastroenterology
PROC: 0DJD8ZZ Inspection of Lower Intestinal Tract, Via Natural or Artificial Opening Endoscopic (ICD-10-PCS; CPT 45378; principal; 2023-05-12 11:50)
DX: Z12.11 Encounter for screening for malignant neoplasm of colon (principal); K57.30 Diverticulosis of large intestine without perforation or abscess without bleeding; K64.0 First degree hemorrhoids; Z80.0 Family history of malignant neoplasm of digestive organs; I10 Essential (primary) hypertension; N85.02 Endometrial intraepithelial neoplasia [EIN]; Z90.710 Acquired absence of both cervix and uterus; Z87.891 Personal history of nicotine dependence
CPT/HCPCS: G0105; J2704

== ENCOUNTER → 2023-05-12 09:09 | Outpatient (BNV) | payer OTHER, SELFPAY | PROVIDERS: PCP Internal Medicine; Visit Provider Internal Medicine Gastroenterology | DX: Z12.11 Encounter for screening for malignant neoplasm of colon (principal); Z86.010 Personal history of colon polyps; K57.30 Diverticulosis of large intestine without perforation or abscess without bleeding; K64.0 First degree hemorrhoids | CPT/HCPCS: G0105 ==

== ENCOUNTER 2023-06-14 11:12 | Outpatient (AMB) | payer OTHER, SELFPAY ==
--- NOTE | 2023-06-14 11:23 | A.OFFVIS_ITS ---
Intake Vital Signs 06/14/23 11:27 Height 5 ft 6 in Weight 189 lb 9.561 oz BMI 30.6 BP 135/77 Blood Pressure Location Lt brachial Position Sitting Pulse 70 Intake Visit Reasons: s/p colon Intake Note: Denise presents in the office as a follow up colonoscopy. CC: She states that she is just here for results - no concerns. Certified Meeting Professional Required: No Allergies No Known Allergies [No Known Allergies*] Allergy (Verified 06/14/23 11:25) HPI s/p colon HPI Details LAST VISIT: Screen for colon cancer Patient denies any GI, cardiac or respiratory symptoms.? Denies any issues with anesthesia in the past.? Denies any history of sleep apnea.? 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 Patient has no seizure has had sedation without any issues in the past. No history infectious diseases in the past or present.? Not on any anticoagulation therapy.? No family or personal history of colon cancer or polyps.? Patient denies melena, hematochezia, unintentional weight loss or ribbon like stools.? Discussed at length the pre-procedure,? prep, diet & medications as well as what to expect prior, during and after the procedure.?? Stressed the importance of good bowel prep. ?Recommended the use of Vaseline or Calmoseptine OTC & baby wipes with bowel movements to promote comfort.? ?Patient verbalizes understanding and agrees to plan of care.? She was given the opportunity to ask questions and all questions answered.? We will see her after the procedure.? History of subarachnoid hemorrhage Plan Medications New bisacodyl (Dulcolax (bisacodyl)) take 2 tabs at noon the day before your colonoscopy 10 mg (2 x 5 mg) PO ONCE 1 day 2 tabs 0R F Z12.11 polyethylene glycol 3350 (Miralax) As directed by gastroenterology department at [facility] 238 grams PO ONCE 238 grams 0RF Z12.11 COLONOSCOPY Findings: Terminal Ileum-normal Cecum:normal Right sided retroflexion- few tics seen Ascending Colon: normal Transverse Colon -normal Descending Colon:normal Sigmoid Colon: mild diverticulosis Rectum: Retroflexion with small internal hemorrhoids, grade I Anorectum - normal Colon preparation: [place] Bowel Preparation Scale Right colon; 3 Transverse colon: 3 Left colon; 3 (0 = Unprepared colon segment with mucos a not seen due to solid stool that cannot be cleared. 1 = Portion of mucosa of the colon segme nt seen, but other areas of the colon segment not well seen due to staining, residual stool and/or opaque liquid. 2 = Minor amount of residual staining, s mall fragments of stool and/or opaque liquid, but mucosa of colon segment seen well. 3 = Entire mucosa of colon segment seen well with no residual staining, small fragments of stool or opaque liquid) Impression and Post Procedure Diagnosis: internal hemorrhoids diverticular disease Plan: High fiber diet leaflet Avoid straining at stool, epsom salts and sitz bath, anusol supps or cream Repeat Colonoscopy in 5 years due to FH of CRC or earlier if clinically indicated TODAY'S VISIT: Patient is here today for follow-up and to discuss colonoscopy results. Patient had no polyps, internal hemorrhoids and diverticulosis found. Patient however will return for colorectal screening in 5 years due to family history of CRC. Patient reports that she has been feeling well. Denies any ill effects from the prep, anesthesia or procedure itself. Reports that she is not emptying her bowels completely. Patient denies melena, hematochezia, unintentional weight loss or ribbon like stools denies any other GI concerning symptoms. 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, low grade (MORIS 1) HTN (hypertension) Surgical History (Updated 06/14/23 @ 11:24 by MAYE Slaughter) Hx of colonoscopy H/O brain surgery H/O knee surgery History of hysterectomy History of bilateral tubal ligation H/O LEEP Family History Father Colon cancer Mother HTN (hypertension) Social History Household Members: Family Housing: House Alcohol intake: never Patient Tobacco Use Status: Former Tobacco user service: No Current occupational status: unemployed Sexual orientation: Straight/Heterosexual Gender identity: Female Female Reproductive History Menstrual Age of Menarche: 13 Review of Systems Const Denies weight gain and Denies weight loss ENT Reports no additional complaints, Denies dysphagia and Denies odynophagia Card Reports no additional complaints Resp Reports no additional complaints GI Denies abdominal pain, Denies belching, Denies melena, Denies bloating, Reports constipation, Denies dysphagia, Denies excessive flatus, Denies dyspepsia, Denies heartburn, Denies diarrhea, Denies loose stools, Denies nausea, Denies odynophagia and Denies vomiting Reports no additional complaints Musc Reports no additional complaints Neuro Reports no additional complaints Psych Reports no additional complaints Endo Reports no additional complaints Physical Exam Vital Signs: Last Vital Signs Pulse 70 06/14/23 11:27 BP 135/77 06/14/23 11:27 BMI result Body Mass Index 30.6 Const General: healthy appearing, no acute distress and well developed Nutritional Appearance: obese Orientation/consciousness: patient oriented x3 Resp Effort & Inspection: normal respiratory effort, able to speak in complete sentences, no tracheal deviation and symmetric chest movement Auscultation: clear to auscultation bilaterally Cardio Rate: regular rate GI Inspection: Yes normal to inspection, No distended and Yes obesity Palpation (GI): Soft to palpation, not firm, nontender and No hepatosplenomegaly present Auscultation: normal bowel sounds General: Yes no CVA tenderness Back/Spine/Pelvis Back: no CVA tenderness Skin General skin exam: elasticity normal, turgor normal and dry skin Neuro General: patient oriented x3 Psych Appearance: grossly normal Mental Status: mental status grossly normal Assessment & Plan Assessment & Plan (1) Diverticulosis: Code(s): K57.90 - Diverticulosis of intestine, part unspecified, without perforation or abscess without bleeding (2) Status post colonoscopy: Code(s): Z98.890 - Other specified postprocedural states (3) Constipation: Code(s): K59.00 - Constipation, unspecified Qualifiers: Constipation type: slow transit constipation Qualified Code(s): K59.01 - Slow transit constipation Plan Patient will return for colonoscopy in 5 years, sooner if clinically necessary. Patient will start taking senna and Citrucel. Patient was encouraged to increase fluid intake and activity to promote better bowel motility. Discussed with patient high-fiber diet. List of food high in fiber given to patient. Patient will return in 5 weeks , sooner on as needed basis. Patient is agreeable to this plan and verbalizes understanding of instructions. She was given the opportunity to ask questions and all questions answered. Thank you for allowing me to participate in her care Medications: New sennosides (Natural Senna Laxative) 17.2 mg (2 x 8.6 mg) PO BEDTIME 180 tabs 3RF constipation K59.00 - Constipation, unspecified methylcellulose (laxative) (Citrucel) take it with full glass of water 500 mg PO DAILY 90 tabs 2RF K59.00 - Constipation, unspecified Coding Level of Care Code Est Pt Level 3 (98843) Diagnoses Diverticulosis K57.90 Status post colonoscopy Z98.890 Slow transit constipation K59.01 Constipation type: slow transit constipation Time Spent (min) 25 Comment 15 minutes spent with patient and additional 10 minutes spent reviewing her records
[2023-06-14 11:27] VITALS: BP 135/77; PULSE 70; BMI 30.6
== END 2023-06-14 11:48 | disposition home or self-care (01) ==
PROVIDERS: PCP Internal Medicine; Visit Provider Nurse Practitioner Family
DX: K57.90 Diverticulosis of intestine, part unspecified, without perforation or abscess without bleeding (principal); Z98.890 Other specified postprocedural states; K59.01 Slow transit constipation
CPT/HCPCS: 99213

== ENCOUNTER → 2023-06-14 11:12 | Outpatient (BNVA) | payer OTHER, SELFPAY | PROVIDERS: PCP Internal Medicine; Visit Provider Nurse Practitioner Family | DX: K57.90 Diverticulosis of intestine, part unspecified, without perforation or abscess without bleeding (principal); K59.01 Slow transit constipation; Z98.890 Other specified postprocedural states | CPT/HCPCS: 99212 ==

== ENCOUNTER 2023-07-27 09:12 | Outpatient (AMB) | payer OTHER, SELFPAY ==
--- NOTE | 2023-07-27 09:16 | A.OFFVIS_ITS ---
Intake Vital Signs 07/27/23 09:17 Height 5 ft 6 in Weight 189 lb 2.506 oz BMI 30.5 Blood Pressure Location Lt brachial Position Sitting Intake Visit Reasons: 6 week follow up Intake Note: Patient here for 2m f/u constipation. Patient taking Citrucel, senna. 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
[2023-07-27 09:17] VITALS: BP 135/74; PULSE 66; BMI 30.5
--- NOTE | 2023-07-27 09:20 | A.OFFVIS_ITS ---
Intake Vital Signs 07/27/23 09:17 Height 5 ft 6 in Weight 189 lb 2.506 oz BMI 30.5 BP 135/74 Blood Pressure Location Lt brachial Position Sitting Pulse 66 Intake Visit Reasons: 6 week follow up Intake Note: Patient here for 2m f/u constipation. Patient taking senna and citrucel. Patient c/o: BM daily but reports stomach discomfort. Marketing Strategist Required: No Accompanied by: Self / Same As Patient Allergies No Known Allergies [No Known Allergies*] Allergy (Verified 07/27/23 09:23) HPI 6 week follow up HPI Details LAST VISIT: Diverticulosis Status post colonoscopy Constipation Plan Patient will return for colonoscopy in 5 years, sooner if clinically necessary. Patient will start taking senna and Citrucel. Patient was encouraged to increase fluid intake and activity to promote better bowel motility. Discussed with patient high-fiber diet. List of food high in fiber given to patient. Patient will return in 5 weeks , sooner on as needed basis. Patient is agreeable to this plan and verbalizes understanding of instructions. She was given the opportunity to ask questions and all questions answered. ? Thank you for allowing me to participate in her care Medications New sennosides (Natural Senna Laxative) 17.2 mg (2 x 8.6 mg) PO BEDTIME 180 tabs 3RF constipation K59.00 methylcellulose (laxative) (Citrucel) take it with full glass of water 500 mg PO DAILY 90 tabs 2RF K59.00 TODAY'S VISIT Patient is here today for follow-up. Patient reports that she has been doing well, however she is starting to become more constipated. In the beginning she reports that Senokot has worked and now she is having trouble moving her bowels. There is day or 2 that she has no bowel movement. Feels bloated and has abdominal cramping. Patient reports that she is drinking water, change her diet. Eating more vegetables. Patient denies melena, hematochezia, unintentional weight loss or ribbon like stools. Patient denies dyspepsia, dysphagia or odynophagia. Reports to have occasional reflux depending on what she eats. Patient denies eating late at night. Postprandial abdominal bloating frequently. More now when she is constipated. 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, low grade (MORIS 1) HTN (hypertension) Surgical History (Updated 06/14/23 @ 11:24 by Windy Alicia Chin) Hx of colonoscopy H/O brain surgery H/O knee surgery History of hysterectomy History of bilateral tubal ligation H/O LEEP Family History Father Colon cancer Mother HTN (hypertension) Social History Household Members: Family Housing: House Alcohol intake: never Patient Tobacco Use Status: Former Tobacco user service: No Current occupational status: unemployed Sexual orientation: Straight/Heterosexual Gender identity: Female Female Reproductive History Menstrual Age of Menarche: 13 Review of Systems Const Denies weight gain and Denies weight loss ENT Reports no additional complaints, Denies dysphagia and Denies odynophagia Card Reports no additional complaints Resp Reports no additional complaints GI Reports abdominal pain (Occasional), Denies belching, Denies melena, Reports bloating, Denies change in bowel habits, Reports constipation, Denies dysphagia, Denies excessive flatus, Denies dyspepsia, Denies heartburn, Denies diarrhea, Denies loose stools, Denies nausea, Denies odynophagia and Denies vomiting Musc Reports no additional complaints Neuro Reports no additional complaints Psych Reports no additional complaints Endo Reports no additional complaints Physical Exam Vital Signs: BMI result Body Mass Index 30.5 Const General: healthy appearing, no acute distress and well developed Nutritional Appearance: well nourished Orientation/consciousness: patient oriented x3 Resp Effort & Inspection: normal respiratory effort, able to speak in complete sentences, no tracheal deviation and symmetric chest movement Auscultation: clear to auscultation bilaterally Cardio Rate: regular rate GI Inspection: Yes normal to inspection and No distended Palpation (GI): Soft to palpation, not firm, nontender and No hepatosplenomegaly present Auscultation: normal bowel sounds General: Yes no CVA tenderness Back/Spine/Pelvis Back: no CVA tenderness Skin General skin exam: elasticity normal, turgor normal and dry skin Neuro General: patient oriented x3 Psych Appearance: grossly normal Mental Status: mental status grossly normal Assessment & Plan Assessment & Plan (1) Diverticulosis: Code(s): K57.90 - Diverticulosis of intestine, part unspecified, without perforation or abscess without bleeding (2) Constipation: Code(s): K59.00 - Constipation, unspecified Qualifiers: Constipation type: slow transit constipation Qualified Code(s): K59.01 - Slow transit constipation (3) Postprandial abdominal bloating: Code(s): R14.0 - Abdominal distension (gaseous) Plan Patient will start taking Dulcolax and stop Senokot. Increase fluid intake and activity to promote better bowel motility. Avoid dietary triggers and late night snacking. Staying upright for minimum 3 hours after meals discussed with patient. Discussed with patient low FODMAP diet. Reports postprandial abdominal bloating. List of food recommended as well as list of food to avoid given to patient. Patient will return in 6 months, sooner on as needed basis. Patient is agreeable to this plan and verbalizes understanding of instructions. She was given the opportunity to ask questions and all questions answered Thank you for allowing me to participate in her care Medications: New bisacodyl (Dulcolax (bisacodyl)) 10 mg (2 x 5 mg) PO BEDTIME 60 tabs 4RF Discontinued sennosides (Natural Senna Laxative) Discontinued Reason: Doctor's Order 17.2 mg (2 x 8.6 mg) PO BEDTIME 180 tabs 3RF constipation K59.00 - Constipation, unspecified Coding Level of Care Code Est Pt Level 3 (82850) Diagnoses Diverticulosis K57.90 Slow transit constipation K59.01 Constipation type: slow transit constipation Postprandial abdominal bloating R14.0 Time Spent (min) 25 Comment 15 minutes spent with patient and additional 10 minutes spent reviewing her records
== END 2023-07-27 09:38 | disposition home or self-care (01) ==
PROVIDERS: PCP Internal Medicine; Visit Provider Nurse Practitioner Family
DX: K57.90 Diverticulosis of intestine, part unspecified, without perforation or abscess without bleeding (principal); K59.01 Slow transit constipation; R14.0 Abdominal distension (gaseous)
CPT/HCPCS: 99213

== ENCOUNTER → 2023-07-27 09:12 | Outpatient (BNVA) | payer OTHER, SELFPAY | PROVIDERS: PCP Internal Medicine; Visit Provider Nurse Practitioner Family | DX: K57.90 Diverticulosis of intestine, part unspecified, without perforation or abscess without bleeding (principal); K59.01 Slow transit constipation; R14.0 Abdominal distension (gaseous) | CPT/HCPCS: 99212 ==

== ENCOUNTER 2023-11-15 13:25 | Outpatient (REF) | payer OTHER, SELFPAY ==
--- NOTE | ~2023-11-15 | XR_ITS ---
EXAMINATION: XR LUMBOSACRAL SPINE WITH OBLIQUES CLINICAL INFORMATION: Low back pain radiating to left leg COMPARISON: CT abdomen pelvis 07/15/2020 TECHNIQUE: AP, both oblique, and lateral views of the lumbar spine. Lateral view of the lumbosacral junction. FINDINGS: Degenerative changes are present with some mild narrowing at most levels with the exception of L3-L4. Mild endplate changes are present at all levels with some mild osteophytes. The vertebral bodies and posterior elements are normal. The facet joints are unremarkable. The vertebral alignment is normal. The paraspinal soft tissues are normal. XR/XR lumbar spine 4V min IMPRESSION: Mild degenerative changes in the lumbar spine.
== END 2023-11-15 13:26 | disposition home or self-care (01) ==
LOC: HO.HHCX 13:25
PROVIDERS: Visit Provider Internal Medicine
DX: M54.50 Low back pain, unspecified (principal); M79.605 Pain in left leg
CPT/HCPCS: 72110

== ENCOUNTER 2023-12-28 09:41 | Outpatient (REF) | payer OTHER, SELFPAY ==
[2023-12-31 10:08] LABS: HPV mRNA E6/E7 Not Detected (Not Detected)
== END 2023-12-28 09:42 | disposition home or self-care (01) ==
LOC: HO.LNP 09:41
PROVIDERS: PCP Internal Medicine; Visit Provider Obstetrics & Gynecology
DX: Z01.419 Encounter for gynecological examination (general) (routine) without abnormal findings (principal)
CPT/HCPCS: 87624; 88175

== ENCOUNTER 2023-12-28 09:41 | Outpatient (AMB) | payer OTHER, SELFPAY ==
[2023-12-28 09:53] VITALS: BP 148/96; BMI 29.5
--- NOTE | 2023-12-28 09:53 | A.OFFVIS_ITS ---
Vital Signs 12/28/23 09:53 Height 5 ft 6 in Weight 183 lb BMI 29.5 BP 148/96 H Intake Visit Reasons: Annual Bird Keeper Required: No Information Interpreted: non-clinical & clinical Siding Stapler: Siding Stapler Present (Kelsi Luna DWIGHTChin) Accompanied by: Self / Same As Patient Allergies No Known Allergies [No Known Allergies*] Allergy (Verified 12/28/23 09:55) HPI Comments Details: Presenting for annual exam. No complaints. 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, low grade (MORIS 1) HTN (hypertension) Surgical History Hx of colonoscopy H/O brain surgery H/O knee surgery History of hysterectomy History of bilateral tubal ligation H/O LEEP Family History Father Colon cancer Mother HTN (hypertension) Social History Household Members: Family Housing: House Alcohol intake: never Patient Tobacco Use Status: Former Tobacco user service: No Current occupational status: unemployed Sexual orientation: Straight/Heterosexual Gender identity: Female Female Reproductive History Menstrual Age of Menarche: 13 Total pregnancies: 3 Full term: 3 Number of Living Children: 3 Date of last pap smear: 09/23/20 Date of Mammogram: 12/28/22 Review of Systems Const All systems reviewed & are unremarkable except as noted in HPI and below Card Reports as per HPI and Reports no additional complaints Resp Reports as per HPI and Reports no additional complaints GI Reports as per HPI and Reports no additional complaints Reports as per HPI Physical Exam Vital Signs: Last Vital Signs BP 148/96 H 12/28/23 09:53 BMI result Body Mass Index 29.5 Const General: cooperative, healthy appearing and comfortable General: Yes bladder normal to palpation External Female Exam: No lesion Speculum Exam - Vagina: normal appearance of the vagina, normal vaginal discharge and not erythematous Speculum Exam - Cervix: Cervix absent Bimanual exam- vagina & uterus: bladder normal to palpation and uterus absent Bimanual Exam- Adnexa, other: Other (No masses detected) Assessment & Plan Assessment & Plan (1) Well woman exam: Comment: MORIS 3 in 2016 status post LEEP with positive margin Status post hysterectomy Code(s): Z01.419 - Encounter for gynecological examination (general) (routine) without abnormal findings Category: Medical Plan: Vaginal Cotesting done. Mammogram ordered. Counseled the patient about the recommended dietary allowance of 1000 mg of Calcium & 600 IU of vitamin D. The patient was instructed to perform monthly self-breast exams and to schedule an annual exam in a year; All questions answered and the patient verbalized understanding. Instructed the patient to schedule annual exam in a year Orders: Orders MM tomosynthesis screening BI Today Z12.31 - Encounter for screening mammogram for malignant neoplasm of breast Coding Level of Care Code Est Pt Prev Care 40-64y(90129) Diagnoses Well woman exam Z01.419
== END 2023-12-28 10:21 | disposition home or self-care (01) ==
PROVIDERS: PCP Internal Medicine; Visit Provider Obstetrics & Gynecology
DX: Z01.419 Encounter for gynecological examination (general) (routine) without abnormal findings (principal)
CPT/HCPCS: 99396

== ENCOUNTER 2024-01-03 12:36 | Outpatient (REF) | payer OTHER, SELFPAY ==
--- NOTE | ~2024-01-03 | MM_ITS ---
EXAMINATION: MM SCREENING DIGITAL BREAST TOMOSYNTHESIS, BILATERAL CLINICAL INFORMATION: Screening. Asymptomatic. COMPARISON: Mammography: Comparison is made with available priors TECHNIQUE: Digital breast mammography with tomosynthesis is performed in both the craniocaudal and mediolateral oblique views along with computer-aided detection (CAD). FINDINGS: There are scattered areas of fibroglandular density (ACR BI-RADS breast composition Category b). Right: There are no significant masses, abnormal calcifications, or other abnormalities. Left: Asymmetry with questioned distortion lateral breast middle depth on CC view. No suspicious calcifications or other abnormal findings. MM/MM tomosynthesis screening BI IMPRESSION: Additional imaging is recommended ASSESSMENT: BI-RADS BI-RADS 0 - Incomplete: Needs additional Imaging. RECOMMENDATION: 1. Additional views of the left breast 2. Targeted ultrasound if warranted after review of the additional views. 3. Radiology department staff will contact the patient for additional imaging. Additional Imaging required This examination should not preclude the clinical evaluation of a suspicious palpable abnormality. This patient's information was entered into a reminder system with a target due date for their next mammogram. Electronically signed by: Brianda Brooks DO 01/13/2024 08:13 PM EDT
== END 2024-01-03 12:37 | disposition home or self-care (01) ==
LOC: HO.MAMMO 12:36
PROVIDERS: PCP Internal Medicine; Referring Provider Obstetrics & Gynecology; Visit Provider Internal Medicine
DX: Z12.31 Encounter for screening mammogram for malignant neoplasm of breast (principal)
CPT/HCPCS: 77063; 77067

== ENCOUNTER → 2024-01-03 13:00 | Outpatient (BNV) | payer OTHER, SELFPAY | PROVIDERS: PCP Internal Medicine; Referring Provider Obstetrics & Gynecology; Visit Provider Internal Medicine | DX: Z12.31 Encounter for screening mammogram for malignant neoplasm of breast (principal) | CPT/HCPCS: 77063; 77067 ==

== ENCOUNTER 2024-01-17 13:45 | Outpatient (REF) | payer OTHER, SELFPAY ==
--- NOTE | ~2024-01-17 | MM_ITS ---
EXAMINATION: MM DIAGNOSTIC DIGITAL BREAST TOMOSYNTHESIS, LEFT CLINICAL INFORMATION: Diagnostic to evaluate one view asymmetry slightly lateral central breast seen on screening exam CC view only; no definite MLO correlate. COMPARISON: Mammography: 12/04/2019, and exams dating back to 09/18/2015. TECHNIQUE: Digital breast tomosynthesis is performed in the following views: Full field 3-D digital left mediolateral view, as well as a 3-D spot compression left CC view. Computer-aided diagnosis was used for this study. FINDINGS: There are scattered areas of fibroglandular density (ACR BI-RADS breast composition Category b). The central slightly lateral asymmetry dissipates completely on spot compression view, consistent with superimposition artifact of normal overlapping tissues. No persistent suspicious finding. There is redemonstration of an intramammary lymph node in the left axillary tail. MM/MM tomosynthesis added views L IMPRESSION: There are no persistent findings suspicious for malignancy. Recommend the patient return to routine annual screening. ASSESSMENT: BI-RADS BI-RADS 2 - Benign Findings RECOMMENDATION: 1 year F/U Results were provided to the patient at time of visit by the technologist. This patient's information was entered into a reminder system with a target due date for their next mammogram. Electronically signed by: Cesar Rainey MD 01/17/2024 02:36 PM EDT
== END 2024-01-17 13:46 | disposition home or self-care (01) ==
LOC: HO.MAMMO 13:45
PROVIDERS: Visit Provider Internal Medicine
DX: N64.89 Other specified disorders of breast (principal)
CPT/HCPCS: 77061; 77065

== ENCOUNTER → 2024-01-17 14:00 | Outpatient (BNV) | payer OTHER, SELFPAY | PROVIDERS: Visit Provider Radiology Diagnostic Radiology | DX: N63.32 Unspecified lump in axillary tail of the left breast (principal) | CPT/HCPCS: 77065; G0279 ==

== ENCOUNTER 2024-01-25 09:09 | Outpatient (AMB) | payer OTHER, SELFPAY ==
[2024-01-25 09:12] VITALS: BP 168/108; PULSE 80; O2SAT 98
--- NOTE | 2024-01-25 09:12 | A.OFFVIS_ITS ---
Vital Signs 01/25/24 09:12 Height 5 ft 6 in Weight 186 lb 1.122 oz BMI 30.0 BP 168/108 H Blood Pressure Location Lt brachial Position Sitting Pulse 80 Pulse Source Pulse Oximeter Pulse Oximetry (%) 98 Oxygen Delivery Method Room Air Intake Visit Reasons: 6 month follow up Intake Note: Denise presents in office today for a scheduled 6 mos FUV. CC; Since last visit; labs ordered ? none, Rx ordered ? dulcolax, diagnostics/images ordered ? none. Relevant GI Sx as reported per pt. ?Nausea and dizziness. ?Reflux ?Dysphagia ?Fecal abnormalities -- Constipation, diarrhea intermittently. Pt reports new onset of dark stools within the last week. Pt reports having cramping and constant pain in the lower quadrants B/L. ?Bloating -- Excessive gas production ?Abdominal distention ?Hx of any recent surgeries? None Pt states that they have been taking the dulcolax as instructed but have not noticed very much relief. Pt reports pain is currently 8/10 pain which is consta nt. Pt states that the pain is often aching, sharp and stabbing. Pt states that pain is present B/L but worse on R. Pt reports having BM approximately every 36- 48 hours. Pt reports BM is often small and hard pieces of stool when they are not having diarrhea. Pt has been taking her HTN medication and did take it this morning approx. 2 hours ago. Pt reports that they recently increased the dose of this medication. Allergies No Known Allergies [No Known Allergies*] Allergy (Verified 01/25/24 09:13) HPI HPI 6 month follow up: Details: LAST VISIT: Diverticulosis Constipation Postprandial abdominal bloating Plan Patient will start taking Dulcolax and stop Senokot. Increase fluid intake and activity to promote better bowel motility. Avoid dietary triggers and late night snacking. Staying upright for minimum 3 hours after meals discussed with patient. Discussed with patient low FODMAP diet. Reports postprandial abdominal bloating. List of food recommended as well as list of food to avoid given to patient. Patient will return in 6 months, sooner on as needed basis. Patient is agreeable to this plan and verbalizes understanding of instructions. She was given the opportunity to ask questions and all questions answered ? Thank you for allowing me to participate in her care Medications New bisacodyl (Dulcolax (bisacodyl)) 10 mg (2 x 5 mg) PO BEDTIME 60 tabs 4RF Discontinued sennosides (Natural Senna Laxative) Discontinued Reason: Doctor's Order 17.2 mg (2 x 8.6 mg) PO BEDTIME 180 tabs 3RF constipation K59.00 TODAY'S VISIT Patient is here today for follow-up. Since the last time I have seen her patient has not been feeling any better. Takes Citrucel in the morning and Dulcolax in the evening. Bowel movement the next day. Patient reports that her bowels are usually loose, and she feels like she does not empty them completely. If she does not take Dulcolax her bowels are small pieces of hard stool. Patient reports that she also has cramping in the left lower quadrant. Patient also reports abdominal bloating, feeling very gassy. More constipated in the last week or so. Darker stools than usual. Patient reports to have acid reflux and occasional nausea. Acid reflux after anything she eats. Not on any PPI currently. Patient also reports postprandial epigastric pain. Patient reports occasional trouble swallowing solid food. Feels like sometimes food is coming back after she eats. Patient usually eats rice and beans and pasta. Occasional fast food. Patient also reports lower back pain bilaterally. Denies any injuries. History of hysterectomy in 2020. Patient denies melena, hematochezia, unintentional weight loss or ribbon like stools. 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, low grade (MORIS 1) HTN (hypertension) Surgical History Hx of colonoscopy H/O brain surgery H/O knee surgery History of hysterectomy History of bilateral tubal ligation H/O LEEP Family History Father Colon cancer Mother HTN (hypertension) Social History Household Members: Family Housing: House Alcohol intake: never Patient Tobacco Use Status: Former Tobacco user service: No Current occupational status: unemployed Sexual orientation: Straight/Heterosexual Gender identity: Female Female Reproductive History Menstrual Age of Menarche: 13 Review of Systems Const Denies weight gain and Denies weight loss ENT Reports no additional complaints, Denies dysphagia and Denies odynophagia Card Reports no additional complaints Resp Reports no additional complaints GI Reports abdominal pain (LLQ), Denies belching, Denies melena, Reports bloating, Denies change in bowel habits, Reports constipation, Denies dysphagia, Denies excessive flatus, Denies dyspepsia, Reports heartburn, Denies diarrhea, Denies loose stools, Denies nausea, Denies odynophagia and Denies vomiting Reports no additional complaints Musc Reports no additional complaints Neuro Reports no additional complaints Psych Reports no additional complaints Endo Reports no additional complaints Physical Exam Vital Signs: Last Vital Signs Pulse 80 01/25/24 09:12 BP 168/108 H 01/25/24 09:12 Pulse Ox 98 01/25/24 09:12 Oxygen Delivery Method Room Air 01/25/24 09:12 BMI result Body Mass Index 30.0 Const General: healthy appearing and no acute distress Nutritional Appearance: well nourished and obese Orientation/consciousness: patient oriented x3 Resp Effort & Inspection: normal respiratory effort, able to speak in complete sentences, no tracheal deviation and symmetric chest movement Auscultation: clear to auscultation bilaterally Cardio Rate: regular rate GI Inspection: Yes normal to inspection and No distended Palpation (GI): Soft to palpation, not firm, nontender and No hepatosplenomegaly present Auscultation: normal bowel sounds General: Yes no CVA tenderness Back/Spine/Pelvis Back: no CVA tenderness Skin General skin exam: elasticity normal, turgor normal and dry skin Neuro General: patient oriented x3 Psych Appearance: grossly normal Mental Status: mental status grossly normal Assessment & Plan Assessment & Plan (1) Diverticulosis: Code(s): K57.90 - Diverticulosis of intestine, part unspecified, without perforation or abscess without bleeding Category: Medical (2) GERD (gastroesophageal reflux disease): Code(s): K21.9 - Gastro-esophageal reflux disease without esophagitis Qualifiers: Esophagitis presence: esophagitis presence not specified Qualified Code(s): K21.9 - Gastro-esophageal reflux disease without esophagitis (3) Postprandial epigastric pain: Code(s): R10.13 - Epigastric pain (4) Dysphagia: Code(s): R13.10 - Dysphagia, unspecified Qualifiers: Dysphagia type: other dysphagia Qualified Code(s): R13.19 - Other dysphagia (5) IBS (irritable bowel syndrome): Code(s): K58.9 - Irritable bowel syndrome, unspecified Qualifiers: Irritable bowel syndrome type: without diarrhea Qualified Code(s): K58.9 - Irritable bowel syndrome, unspecified (6) Chronic idiopathic constipation: Code(s): K59.04 - Chronic idiopathic constipation Plan New onset of acid reflux in the past few months. Discussed with patient a voiding dietary triggers and late night snacking. Staying upright for minimum 3 hours after meals discussed with patient. Patient will start taking omeprazole in the morning. Patient continues to be constipated will stop Dulcolax as this probably is causing her cramping and will start her on Trulance. Increase fluid intake and activity to promote better bowel motility. Patient was encouraged to change her diet. Avoid certain food, limit carbs. Discussed with patient low FODMAP diet. List of food recommended as well as list of food to avoid given to patient. History of hysterectomy. Patient reports pain in the mostly left lower quadrant, however pain goes across to the right lower quadrant. Will send patient for CT scan. Abdomen benign on exam. Patient was encouraged to increas e fiber take [id number] fiber supplement. May get [id number]-[id number] probiotics as well. Long discussion with patient regarding dietary changes. I will see patient in 2 months, sooner on as needed basis. She is agreeable to this plan and verbalizes understanding of instructions. She was given the opportunity to ask questions and all questions answered. Thank you for allowing me to participate in his care Orders: Orders Blood Urea Nitrogen Today R10.11 - Right upper quadrant pain Creatinine Today R10.11 - Right upper quadrant pain CT abdomen pelvis w IV con Today K57.90 - Diverticulosis of intestine, part unspecified, without perforation or abscess without bleeding, R10.32 - Left lower quadrant pain, R10.9 - Unspecified abdominal pain Medications: New plecanatide (Trulance) 3 mg PO DAILY 30 tabs 3RF K59.09 - Other constipation omeprazole 20 mg PO DAILY 30 caps 2RF K21.9 - Gastro-esophageal reflux disease without esophagitis Refilled methylcellulose (laxative) (Citrucel) take it with full glass of water 500 mg PO DAILY 90 tabs 2RF K59.00 - Constipation, unspecified Discontinued bisacodyl (Dulcolax (bisacodyl)) Discontinued Reason: Doctor's Order 10 mg (2 x 5 mg) PO BEDTIME 60 tabs 4RF Coding Level of Care Code Est Pt Level 4 (98977) Complex EM visit Add On G2211 Diagnoses Diverticulosis K57.90 Gastroesophageal reflux disease, unspecified whether esophagitis present K21.9 Esophagitis presence: esophagitis presence not specified Postprandial epigastric pain R10.13 Other dysphagia R13.19 Dysphagia type: other dysphagia Irritable bowel syndrome without diarrhea K58.9 Irritable bowel syndrome type: without diarrhea Chronic idiopathic constipation K59.04 Time Spent (min) 40 Comment 25 minutes spent with patient and additional 10 minutes spent reviewing her records
== END 2024-01-25 09:48 | disposition home or self-care (01) ==
PROVIDERS: PCP Internal Medicine; Visit Provider Nurse Practitioner Family
DX: K57.90 Diverticulosis of intestine, part unspecified, without perforation or abscess without bleeding (principal); K21.9 Gastro-esophageal reflux disease without esophagitis; R10.13 Epigastric pain; R13.19 Other dysphagia; K58.9 Irritable bowel syndrome, unspecified; K59.04 Chronic idiopathic constipation
CPT/HCPCS: 99214; G2211

== ENCOUNTER → 2024-01-25 09:09 | Outpatient (BNVA) | payer OTHER, SELFPAY | PROVIDERS: PCP Internal Medicine; Visit Provider Nurse Practitioner Family | DX: K21.9 Gastro-esophageal reflux disease without esophagitis (principal); K57.90 Diverticulosis of intestine, part unspecified, without perforation or abscess without bleeding; K58.9 Irritable bowel syndrome, unspecified; K59.04 Chronic idiopathic constipation; R10.13 Epigastric pain; R13.19 Other dysphagia | CPT/HCPCS: 99212 ==

== ENCOUNTER → 2024-02-09 10:42 | Outpatient (BNV) | payer OTHER, SELFPAY | PROVIDERS: PCP Internal Medicine; Visit Provider Radiology Diagnostic Radiology | DX: M54.50 Low back pain, unspecified (principal); M79.605 Pain in left leg | CPT/HCPCS: 72148 ==

== ENCOUNTER 2024-02-09 10:44 | Outpatient (REF) | payer OTHER, SELFPAY ==
--- NOTE | ~2024-02-09 | MR_ITS ---
EXAMINATION: MR LUMBAR SPINE WITHOUT CONTRAST CLINICAL INFORMATION: Low back pain, radiating to right buttock, radiating up back left greater than right, no injury, symptoms x1 year, 48-year-old female. COMPARISON: No prior MRI. Lumbar plane films 11/15/2023. TECHNIQUE: Multiplanar multisequence MR imaging of the lumbar spine was done without IV contrast. Examination was performed on a 1.5 Raya Siemens magnet, utilizing standard sequences. FINDINGS: CORONAL ALIGNMENT: -Normal. SAGITTAL ALIGNMENT: - Normal lordosis. -There is a 2 mm degenerative appearing retrolisthesis L3 on L4, and L4 on L5. LUMBOSACRAL JUNCTION: -Normal. There are 5 ypf-pby-hwkzsiv lumbar-type vertebral bodies. VERTEBRAL BODIES/BONE MARROW: -There is no compression deformity. -Edematous Schmorl's node herniation present within the inferior left endplate of L4 (series 6, image 11). -No additional abnormal bone marrow signal side from minimal degenerative endplate edema oriented to the right at L2-3. -No abnormal infiltrating bone marrow signal identified. DISCS: -Mild to moderate loss of disc height and signal L2-3, L3-4, and L4-5. -Minimal loss of disc height and signal L5-S1. -Remainder of the discs are preserved. SPINAL CANAL: -No abnormal developmental findings. CONUS MEDULLARIS: -Terminates at T12-L1. Morphology and signal is normal. INTRADURAL NERVE ROOTS: - Within normal limits. Axial Disc Space Images: T12-L1: No central canal or neural foraminal narrowing. Normal facets. L1-L2: No central canal or neural foraminal narrowing. Normal facets. L2-L3: There is a shallow diffuse disc bulge present, with superimposed right foraminal extrusion of disc material with associated annular fissuring. There is no significant mass effect upon the thecal sac or lateral recesses. Mild bilateral facet arthropathy present. Findings result in mild to moderate right and mild left neural foraminal narrowing. No significant central canal narrowing. L3-L4: Subtle degenerative retrolisthesis. There is a shallow diffuse disc bulge present with bilateral foraminal extrusions of disc material. There is diffuse ventral annular fissuring, as well as posterior annular fissuring. There are mild hypertrophic degenerative facet changes. There is minimal central canal narrowing, minimal bilateral subarticular recess narrowing, and mild to moderate right and mild left neural foraminal narrowing. L4-L5: There is a diffuse bulging disc present with annular fissuring extending throughout the central, lateral, and foraminal zones. There is a superimposed left paracentral and lateral extrusion of disc material. Coupled with mild to moderate hypertrophic facet changes bilaterally, combination of findings is resulting in moderate central canal stenosis, moderate to severe left subarticular recess stenosis with contact and deviation of the traversing left L5 nerve roots. (Series 8, image 22). There is moderate to severe right and moderate left neural foraminal narrowing. There is mass effect and mild impingement of the exiting right L4 nerve root. L5-S1: There is a shallow diffuse disc bulge with a superimposed central extrusion of disc material with annular fissuring. This indents upon the ventral thecal sac, but does not demonstrate mass effect upon nerve roots. There are mild degenerative hypertrophic facet changes. There is minimal central canal narrowing, no significant subarticular recess narrowing, and mild bilateral neural foraminal narrowing. IMAGED SI JOINTS: -Lxjk-kh-okzzojzm degenerative arthrosis. PARAVERTEBRAL AND INCLUDED EXTRASPINAL SOFT TISSUES: -Aorta is normal in caliber. -2.8 cm right ovarian cyst. -Otherwise normal. MR/MR lumbar spine wo con IMPRESSION: 1. Mild to moderate degenerative spondylosis of the lumbar spine, most significant spanning L3-4 through L5-S1, most severe at L4-5. 2. Edematous Schmorl's node herniation the inferior right endplate of L4. 3. No high-grade central canal stenosis. Moderate central stenosis and moderate to severe left lateral recess stenosis at L4-5 due to a left paracentral and lateral disc extrusion. Moderate to severe right neural foraminal impingement at L4-5. 4. Annular fissuring evident at L3-4, L4-5, and L5-S1. 5. See the body of the report for details. Electronically signed by: Cesar Rainey MD 02/13/2024 03:06 PM ELLIOTT RAMIREZ
== END 2024-02-09 10:45 | disposition home or self-care (01) ==
LOC: HO.MRI 10:44
PROVIDERS: PCP Internal Medicine; Visit Provider Internal Medicine
DX: M54.50 Low back pain, unspecified (principal); M79.605 Pain in left leg
CPT/HCPCS: 72148

== ENCOUNTER 2024-02-15 09:29 | Outpatient (REF) | payer OTHER, SELFPAY ==
[2024-02-15 12:13] LABS: Alanine Aminotransferase 25 U/L (0-31); Albumin Level 4.4 g/dL (3.5-5.0); Alkaline Phosphatase 76 U/L (39-117); Anion Gap 12 (12-20); Aspartate Amino Transferase 28 U/L (5-31); Bilirubin Direct 0.4 mg/dL (0.0-0.5); Bilirubin Total 1.4 mg/dL (0.0-1.0); Blood Urea Nitrogen 13 mg/dL (9-16); Calcium 9.7 mg/dL (8.4-10.2); Carbon Dioxide 30 mmol/L (22-29); Chloride 101 mmol/L (96-108); Cholesterol 121 mg/dL (<200); Estimated Glomerular Filt Rate > 60; Glucose Random 107 mg/dL (60-115); HDL Cholesterol 32 mg/dL (>40); LDL Cholesterol Calculated 57 mg/dL (<100); Sodium 140 mmol/L (135-145); Total Protein 7.4 g/dL (6.5-8.0); Triglycerides 160 mg/dL (<150)
[2024-02-15 12:52] LABS: Reflex LDLD? No
== END 2024-02-15 09:30 | disposition home or self-care (01) ==
LOC: HO.HHCL 09:29
PROVIDERS: Visit Provider Internal Medicine
DX: I10 Essential (primary) hypertension (principal); E78.2 Mixed hyperlipidemia
CPT/HCPCS: 36415; 80053; 80061; 82248

== ENCOUNTER 2024-02-20 09:23 | Outpatient (AMB) | payer OTHER, SELFPAY ==
--- NOTE | 2024-02-20 09:25 | A.SPINEOV_ITS ---
Intake Visit Reasons: LBP Intake Note: Ms. Boyce is here today c/o low back pain that radiates down to the legs. 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 Finn, Thank you for referring Denise to our office today. She is a pleasant 48-year-old female who comes in today with a chief complaint of low back pain and shooting pain into her left lower extremity. She reports that this has been ongoing for the past 1 year and has worsened in the last few months. She does report a burning and tingling sensation that is low-grade which accompanies the pain. When describing the pain she runs her hand from her low back around her left hip over her left anterior thigh over the left knee and into the lateral calf. She denies any involvement of the foot. She describes her pain as throbbing/aching constantly. She states that her pain worsens with lying flat and standing for prolonged periods of time. It is alleviated by movement. She is currently taking Tylenol, muscle relaxers, and pain patches/creams in order to help mitigate the pain. She has tried heat therapy via hot packs in his had therapeutic massage was completed. She has been to physical therapy. She has not tried any cortisone injections as of yet. 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 PMH: Left knee arthroscopic repair, AVM removal via craniotomy & aneurysm repair. Hysterectomy. Nephrolithiasis, hypertension, vitamin-D deficiency, depression/anxiety, hyperlipidemia, GERD, constipation. Social hx: Patient does not smoke, reports no substance use. Medications: Sertraline, rosuvastatin, Trulance, omeprazole, mirtazapine, methylcellulose, melatonin, meclizine, losartan, hydroxyzine, hydrochlorothiazide, diclofenac, clonazepam, vitamin D3, Tylenol. Allergies: NKDA. Physical exam: The patient has 5/5 strength in her upper and lower extremities. She is able to ambulate well without an notably antalgic gait. She has some hypoesthesia over the left anterior thigh compared to the right. The rest of her sensation is grossly intact. Her reflexes are 2+ intact. (-) bilateral straight leg raise, (-) Palafox's, (-) clonus. Imaging review: MRI of the lumbar spine completed here at [facility] shows a Schmorl's node herniation at L4. There is also a left paracentral and disc extrusion causing moderate stenosis of the left L4 nerve root exiting the foramen. There is also a slight right-sided disc bulge at L2-3 causing some mild impingement of the L2 nerve on the right. Impression: Denise is a pleasant 48-year-old female who comes in today with a chief complaint of low back pain and shooting pain into her left lower extremity. Her pain is in a distribution typically associated with the L4/5 nerve root on the left. Seeing as there is evidence of left L4 compression on MRI i believe this to be the likely cause of her radicular pain. To what extent this herniation is contributing to her back pain is unknown. 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 We extensively discussed the spectrum treatment options from a surgical standpoint, and the patient does not wish to pursue a surgical intervention for this issue at this time. She does not feel that she could deal with the potential down time having no help to care for her son at this time. She has never tried cortisone injections so I encouraged her to attempt this. I will refer her to our colleagues at pain management. She may follow up with us after injections depending on the outcome. Thank you for allowing us to care for your patient. The total time spent with this visit with this patient was 45 minutes reviewing history, physical exam, MRI imaging review, and implementation of treatment plan or further diagnostic testing Edward Pires MD,PhD [facility] Coding Level of Care Code New Pt Level 4 (09399) Diagnoses Lumbar radiculopathy M54.16
== END 2024-02-20 10:14 | disposition home or self-care (01) ==
PROVIDERS: PCP Internal Medicine; Referring Provider Internal Medicine; Visit Provider Physician Assistant
DX: M54.16 Radiculopathy, lumbar region (principal)
CPT/HCPCS: 99204

== ENCOUNTER → 2024-02-20 09:23 | Outpatient (BNVA) | payer OTHER, SELFPAY | PROVIDERS: PCP Internal Medicine; Referring Provider Internal Medicine; Visit Provider Physician Assistant | DX: M54.16 Radiculopathy, lumbar region (principal) | CPT/HCPCS: 99202 ==

== ENCOUNTER 2024-03-02 11:27 | Outpatient (AMB) | payer OTHER, SELFPAY ==
--- NOTE | 2024-03-02 11:28 | A.OFFVIS_ITS ---
Vital Signs 03/02/24 11:34 Height 5 ft 6 in Weight 192 lb 2 oz BMI 31.0 BP 146/70 H Blood Pressure Location Lt brachial Position Sitting Respiration 16 Pulse 90 Pulse Source Pulse Oximeter Pulse Oximetry (%) 99 Oxygen Delivery Method Room Air Intake Visit Reasons: Radiculopathy, lumbar region Intake Note: Patient comes in for initial visit was referred by Spine center. Allergies No Known Allergies [No Known Allergies*] Allergy (Verified 03/02/24 11:33) HPI Comments Details: Denise is a very pleasant 48-year-old female who presents the office today for evaluation management of her chronic lower back pain. To his evaluated by neuro spine and referred here for consideration of an L4 epidural steroid injection Pain started greater than 1 year ago, denies injury, fall, trauma Endorses midline lower back pain with radiation down the left leg to the foot with associated numbness, burning and tingling Pain is worse with any movement. 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 She continues with home exercise program as instructed on discharge from PT Taking diclofenac with minimal relief. Tylenol as needed with little relief Prescribed muscle relaxer which does not give her much relief. She finds some relief with heat. No improvement with topical medications, icy hot, lidocaine patches. Denies red flag symptoms including loss of bowel, bladder or saddle anesthesia Recent MRI reviewed, results as per below In terms of muscle damage condition is described as pulsing, throbbing, pounding, pinching, cramping, dull, sore, aching, shooting, jumping, radiating, tight, stabbing, burning, hot, sharp, tingling Pain is negatively impacting patient's enjoyment of life, general activity, sleep, ability to perform her activities of daily living, normal functioning Denies current use of anticoagulants Denies implantable devices, pacemaker defibrillator Denies current use of nicotine, tobacco, alcohol or illicit substances Past medical history significant for hypertension, high cholesterol, migraines, anxiety PFSH Medical History Diverticulosis Cerebral aneurysm Mass of left axilla 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, low grade (MORIS 1) HTN (hypertension) Surgical History Hx of colonoscopy H/O brain surgery H/O knee surgery History of hysterectomy History of bilateral tubal ligation H/O LEEP Family History Father Colon cancer Mother HTN (hypertension) Social History Household Members: Family Housing: House Alcohol intake: never Patient Tobacco Use Status: Former Tobacco user service: No Current occupational status: unemployed Sexual orientation: Straight/Heterosexual Gender identity: Female Female Reproductive History Menstrual Age of Menarche: 13 Review of Systems Const All systems reviewed & are unremarkable except as noted in HPI and below Physical Exam Vital Signs: Last Vital Signs Pulse 90 03/02/24 11:34 Resp 16 03/02/24 11:34 BP 146/70 H 03/02/24 11:34 Pulse Ox 99 03/02/24 11:34 Oxygen Delivery Method Room Air 03/02/24 11:34 BMI result Body Mass Index 31.0 General: awake, alert, oriented. Answers questions appropriately. Fully engaged in examination. Skin: warm, dry, intact HEENT: Normocephalic. Hearing intact. Cardiac: External chest normal in appearance. Respiratory: No cough, audible wheezing or stridor. Abdomen: without gross distension. MS: No obvious swelling or deformities. Able to stand on bilateral tiptoes and bilateral heels.? Able to transition from sit to stand unassisted. Ambulates with bilaterally normal heel strike and toe off SLR positive on the left Decreased lumbar range of motion secondary to pain Tenderness to palpation midline lumbar vertebrae and lumbar paraspinal muscles Nontender over bilateral PSIS Valsalva negative Negative footdrop, negative clonus Neurological: Oriented to person, place, time and situation. Thought process intact. No gait abnormalities appreciated. Psychiatric: Appropriate mood and affect. Good judgment and insight. Results Reviewed Results Reviewed: 02/09/24 MRI lumbar spine FINDINGS: CORONAL ALIGNMENT: -Normal. SAGITTAL ALIGNMENT: - Normal lordosis. -There is a 2 mm degenerative appearing retrolisthesis L3 on L4, and L4 on L5. LUMBOSACRAL JUNCTION: -Normal. There are 5 hkm-xgq-wrqcjnt lumbar-type vertebral bodies. VERTEBRAL BODIES/BONE MARROW: -There is no compression deformity. -Edematous Schmorl's node herniation present within the inferior left endplate of L4 (series 6, image 11). -No additional abnormal bone marrow signal side from minimal degenerative endplate edema oriented to the right at L2-3. -No abnormal infiltrating bone marrow signal identified. DISCS: -Mild to moderate loss of disc height and signal L2-3, L3-4, and L4-5. -Minimal loss of disc height and signal L5-S1. -Remainder of the discs are preserved. SPINAL CANAL: -No abnormal developmental findings. CONUS MEDULLARIS: -Terminates at T12-L1. Morphology and signal is normal. INTRADURAL NERVE ROOTS: - Within normal limits. Axial Disc Space Images: T12-L1: No central canal or neural foraminal narrowing. Normal facets. L1-L2: No central canal or neural foraminal narrowing. Normal facets. L2-L3: There is a shallow diffuse disc bulge present, with superimposed right foraminal extrusion of disc material with associated annular fissuring. There is no significant mass effect upon the thecal sac or lateral recesses. Mild bilateral facet arthropathy present. Findings result in mild to moderate right and mild left neural foraminal narrowing. No significant central canal narrowing. L3-L4: Subtle degenerative retrolisthesis. There is a shallow diffuse disc bulge present with bilateral foraminal extrusions of disc material. There is diffuse ventral annular fissuring, as well as posterior annular fissuring. There are mild hypertrophic degenerative facet changes. There is minimal central canal narrowing, minimal bilateral subarticular recess narrowing, and mild to moderate right and mild left neural foraminal narrowing. L4-L5: There is a diffuse bulging disc present with annular fissuring extending throughout the central, lateral, and foraminal zones. There is a superimposed left paracentral and lateral extrusion of disc material. Coupled with mild to moderate hypertrophic facet changes bilaterally, combination of findings is resulting in moderate central canal stenosis, moderate to severe left subarticular recess stenosis with contact and deviation of the traversing left L5 nerve roots. (Series 8, image 22). There is moderate to severe right and moderate left neural foraminal narrowing. There is mass effect and mild impingement of the exiting right L4 nerve root. L5-S1: There is a shallow diffuse disc bulge with a superimposed central extrusion of disc material with annular fissuring. This indents upon the ventral thecal sac, but does not demonstrate mass effect upon nerve roots. There are mild degenerative hypertrophic facet changes. There is minimal central canal narrowing, no significant subarticular recess narrowing, and mild bilateral neural foraminal narrowing. IMAGED SI JOINTS: -Ouhx-ez-dysfvxvl degenerative arthrosis. PARAVERTEBRAL AND INCLUDED EXTRASPINAL SOFT TISSUES: -Aorta is normal in caliber. -2.8 cm right ovarian cyst. -Otherwise normal. IMPRESSION: 1. Mild to moderate degenerative spondylosis of the lumbar spine, most significant spanning L3-4 through L5-S1, most severe at L4-5. 2. Edematous Schmorl's node herniation the inferior right endplate of L4. 3. No high-grade central canal stenosis. Moderate central stenosis and moderate to severe left lateral recess stenosis at L4-5 due to a left paracentral and lateral disc extrusion. Moderate to severe right neural foraminal impingement at L4-5. 4. Annular fissuring evident at L3-4, L4-5, and L5-S1. 5. See the body of the report for details. Assessment & Plan Assessment & Plan (1) Lumbar radiculopathy: Code(s): M54.16 - Radiculopathy, lumbar region Category: Medical Plan Denise presented to the office today for evaluation management of her chronic lower back pain History, physical exam and provocative testing consistent with lumbar radiculopathy Patient has exhausted conservative therapy including NSAIDs, physical therapy, home exercise program, folk-fer-jiwlnor medications, prescription medications, heat, ice, topical patches all without improvement of her symptoms Discussed options for treatment including diagnostic interventional testing, epidural steroid injections, peripheral nerve stimulation with Sprint, RFA and more permanent neuromodulation. Will schedule for fluoroscopy guided bilateral L4-5 transforaminal epidural steroid injection with local anesthetic. All questions and concerns have been answered and patient agrees with the plan. Follow up after injections and sooner if needed. Coding Level of Care Code New Pt Level 4 (77652) Complex EM visit Add On G2211 Diagnoses Lumbar radiculopathy M54.16
[2024-03-02 11:34] VITALS: BP 146/70; PULSE 90; RESP 16; O2SAT 99; BMI 31.0
== END 2024-03-02 11:58 | disposition home or self-care (01) ==
PROVIDERS: PCP Internal Medicine; Visit Provider Registered Nurse Emergency
DX: M54.16 Radiculopathy, lumbar region (principal)
CPT/HCPCS: 99204; G2211

== ENCOUNTER → 2024-03-02 11:27 | Outpatient (BNVA) | payer OTHER, SELFPAY | PROVIDERS: PCP Internal Medicine; Visit Provider Registered Nurse Emergency | DX: M54.16 Radiculopathy, lumbar region (principal) | CPT/HCPCS: 99202 ==

== ENCOUNTER 2024-04-09 13:48 | Outpatient (REF) | payer OTHER, SELFPAY ==
--- NOTE | ~2024-04-09 | CT_ITS ---
CLINICAL HISTORY: R10.9 - Unspecified abdominal pain CT abdomen and pelvis with contrast Comparison: None Findings: The lung bases are clear. The liver, gallbladder, spleen, adrenal glands and pancreas are unremarkable. Kidneys enhance symmetrically and are without obstructive uropathy or suspicious lesion. Ureters and bladder are within normal limits. No bowel obstruction. Normal appendix. Diverticulosis noted throughout the colon. Mild fecal retention within the distal colon. Tiny fat containing umbilical hernia. Uterus appears surgically absent. Left adnexal cysts measuring up to 3.3 cm No free air, free fluid, abscess or adenopathy. No acute osseous finding. Impression: No definite acute process. Mild fecal retention within the distal colon. This document has been electronically signed by: Igor Rice MD on 04/11/2024 06:54:38
[2024-04-09] MEDS: iohexoL 350 MG/ML 100 ML INFUS..BTL IV (16:46)
[2024-04-09] MEDS: Barium Sulfate Oral (Mocha) 450 ML ORAL.SUSP 900 ML PO (16:46)
== END 2024-04-09 13:49 | disposition home or self-care (01) ==
LOC: HO.CT 13:48
PROVIDERS: PCP Internal Medicine; Visit Provider Nurse Practitioner Family
DX: R10.32 Left lower quadrant pain (principal); K57.90 Diverticulosis of intestine, part unspecified, without perforation or abscess without bleeding
CPT/HCPCS: 74177; Q9967

== ENCOUNTER → 2024-04-09 13:50 | Outpatient (BNV) | payer OTHER, SELFPAY | PROVIDERS: PCP Internal Medicine; Visit Provider Radiology Vascular & Interventional Radiology | DX: K56.41 Fecal impaction (principal) | CPT/HCPCS: 74177 ==

== ENCOUNTER 2024-04-13 08:48 | Outpatient (AMB) | payer OTHER, SELFPAY ==
[2024-04-13 08:53] VITALS: BP 128/88; PULSE 76; O2SAT 98; BMI 30.6
--- NOTE | 2024-04-13 08:53 | A.OFFVIS_ITS ---
Vital Signs 04/13/24 08:53 Height 5 ft 6 in Weight 189 lb 9.561 oz BMI 30.6 BP 128/88 Blood Pressure Location Lt brachial Position Sitting Pulse 76 Pulse Source Pulse Oximeter Pulse Oximetry (%) 98 Oxygen Delivery Method Room Air Intake Visit Reasons: ~2 mos FUV. Intake Note: ESTABLISHED PATIENT Reason; scheduled in office 2 mos FUV. Changes/concerns? Imaging Done. No significant concerns. Allergies No Known Allergies [No Known Allergies*] Allergy (Verified 04/13/24 08:53) HPI HPI ~2 mos FUV.: Details: LAST VISIT Diverticulosis GERD (gastroesophageal reflux disease) Postprandial epigastric pain Dysphagia IBS (irritable bowel syndrome) Chronic idiopathic constipation Plan New onset of acid reflux in the past few months. Discussed with patient avoiding dietary triggers and late night snacking. Staying upright for minimum 3 hours after meals discussed with patient. Patient will start taking omeprazole in the morning. Patient continues to be constipated will stop Dulcolax as this probably is causing her cramping and will start her on Trulance. Increase fluid intake and activity to promote better bowel motility. Patient was encouraged to change her diet. Avoid certain food, limit carbs. Discussed with patient low FODMAP diet. List of food recommended as well as list of food to avoid given to patient. History of hysterectomy. Patient reports pain in the mostly left lower quadrant, however pain goes across to the right lower quadrant. Will send patient for CT scan. Abdomen benign on exam. Patient was encouraged to increase fiber take phud-lzw-etciiba fiber supplement. May get bvln-cim-oecnmxq probiotics as well. Long discussion with patient regarding dietary changes. I will see patient in 2 months, sooner on as needed basis. She is agreeable to th is plan and verbalizes understanding of instructions. She was given the opportunity to ask questions and all questions answered. ? Thank you for allowing me to participate in his care Orders Orders Blood Urea Nitrogen Today R10.[address] abdomen pelvis w IV con Today K57.90, R10.32, R10.9 Medications New plecanatide (Trulance) 3 mg PO DAILY 30 tabs 3RF K59.09 omeprazole 20 mg PO DAILY 30 caps 2RF K21.9 Refilled methylcellulose (laxative) (Citrucel) take it with full glass of water 500 mg PO DAILY 90 tabs 2RF K59.00 Discontinued bisacodyl (Dulcolax (bisacodyl)) Discontinued Reason: Doctor's Order 10 mg (2 x 5 mg) PO BEDTIME 60 tabs 4RF TODAY'S VISIT Patient is here today for follow-up and to discuss CT scan results. Patient had CT scan few days ago and no acute processes found. Patient reports that she is feeling better. Symptoms of left upper quadrant pain are better after she was a bowel movement. Patient states that she takes Trulance not every day but if needed and if she does take the medications she has a bowel movements. Patient reports that omeprazole has been working for her symptoms of acid reflux are suppressed with the medication. Patient states that she also is trying to avoid dietary triggers. She continues to eat mostly [place] food did rice and beans, however she tries to incorporate more fruits and vegetables. Patient denies melena, hematochezia, unintentional weight loss or ribbon like stools. Denies any dyspepsia, dysphagia or odynophagia. [facility] Medical History Diverticulosis Cerebral aneurysm Mass of left axilla 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, low grade (MORIS 1) HTN (hypertension) Surgical History Hx of colonoscopy H/O brain surgery H/O knee surgery History of hysterectomy History of bilateral tubal ligation H/O LEEP Family History Father Colon cancer Mother HTN (hypertension) Social History Household Members: Family Housing: House Alcohol intake: never Patient Tobacco Use Status: Former Tobacco user service: No Current occupational status: unemployed Sexual orientation: Straight/Heterosexual Gender identity: Female Female Reproductive History Menstrual Age of Menarche: 13 Review of Systems Const Denies weight gain and Denies weight loss ENT Reports no additional complaints, Denies dysphagia and Denies odynophagia Card Reports no additional complaints Resp Reports no additional complaints GI Denies abdominal pain, Denies belching, Denies melena, Denies bloating, Denies change in bowel habits, Reports constipation (Occasional), Denies dysphagia, Denies excessive flatus, Denies dyspepsia, Denies heartburn, Denies diarrhea, Denies loose stools, Denies nausea, Denies odynophagia and Denies vomiting Reports no additional complaints Musc Reports no additional complaints Neuro Reports no additional complaints Psych Reports no additional complaints Endo Reports no additional complaints Physical Exam Vital Signs: Last Vital Signs Pulse 76 04/13/24 08:53 BP 128/88 04/13/24 08:53 Pulse Ox 98 04/13/24 08:53 Oxygen Delivery Method Room Air 04/13/24 08:53 BMI result Body Mass Index 30.6 Const General: healthy appearing and no acute distress Nutritional Appearance: well nourished and obese Orientation/consciousness: patient oriented x3 Resp Effort & Inspection: normal respiratory effort, able to speak in complete sentences, no tracheal deviation and symmetric chest movement Auscultation: clear to auscultation bilaterally Cardio Rate: regular rate GI Inspection: Yes normal to inspection and No distended Palpation (GI): Soft to palpation, not firm, nontender and No hepatosplenomegaly present Auscultation: normal bowel sounds General: Yes no CVA tenderness Back/Spine/Pelvis Back: no CVA tenderness Skin General skin exam: elasticity normal, turgor normal and dry skin Neuro General: patient oriented x3 Psych Appearance: grossly normal Mental Status: mental status grossly normal Results Reviewed Results Reviewed: CT SCAN OF ABDOMEN AND PELVIS 04/11/2024 Findings: The lung bases are clear. The liver, gallbladder, spleen, adrenal glands and pancreas are unremarkable. Kidneys enhance symmetrically and are without obstructive uropathy or suspicious lesion. Ureters and bladder are within normal limits. No bowel obstruction. Normal appendix. Diverticulosis noted throughout the colon. Mild fecal retention within the distal colon. Tiny fat containing umbilical hernia. Uterus appears surgically absent. Left adnexal cysts measuring up to 3.3 cm No free air, free fluid, abscess or adenopathy. No acute osseous finding. Impression: No definite acute process. Mild fecal retention within the distal colon. Assessment & Plan Assessment & Plan (1) Diverticulosis: Code(s): K57.90 - Diverticulosis of intestine, part unspecified, without perforation or abscess without bleeding Category: Medical (2) GERD (gastroesophageal reflux disease): Code(s): K21.9 - Gastro-esophageal reflux disease without esophagitis Qualifiers: Esophagitis presence: esophagitis presence not specified Qualified Code(s): K21.9 - Gastro-esophageal reflux disease without esophagitis (3) Postprandial epigastric pain: Code(s): R10.13 - Epigastric pain (4) Dysphagia: Code(s): R13.10 - Dysphagia, unspecified Qualifiers: Dysphagia type: pharyngoesophageal phase Qualified Code(s): R13.14 - Dysphagia, pharyngoesophageal phase (5) IBS (irritable bowel syndrome): Code(s): K58.9 - Irritable bowel syndrome, unspecified Qualifiers: Irritable bowel syndrome type: without diarrhea Qualified Code(s): K58.9 - Irritable bowel syndrome, unspecified (6) Chronic idiopathic constipation: Code(s): K59.04 - Chronic idiopathic constipation Plan Patient will continue taking Trulance daily. Increase fluid intake and activity to promote better bowel motility. Increase fiber intake as well. May take aodd-qrn-xwexpjm probiotics. Patient will continue taking omeprazole daily. Avoid dietary triggers and late night snacking. Staying upright for minimum 3 hours after meals discussed with patient. Patient will follow-up in 6 months, sooner on as needed basis. She is agreeable to this plan and verbalizes understanding of instructions. She was given the opportunity to ask questions and all questions answered. Thank you for allowing me participate in her care Coding Level of Care Code Est Pt Level 4 (61895) Diagnoses Diverticulosis K57.90 Gastroesophageal reflux disease, unspecified whether esophagitis present K21.9 Esophagitis presence: esophagitis presence not specified Postprandial epigastric pain R10.13 Pharyngoesophageal dysphagia R13.14 Dysphagia type: pharyngoesophageal phase Irritable bowel syndrome without diarrhea K58.9 Irritable bowel syndrome type: without diarrhea Chronic idiopathic constipation K59.04 Time Spent (min) 35 Comment 20 minutes spent with patient and additional 15 minutes spent reviewing her records
== END 2024-04-13 09:19 | disposition home or self-care (01) ==
PROVIDERS: PCP Internal Medicine; Visit Provider Nurse Practitioner Family
DX: K57.90 Diverticulosis of intestine, part unspecified, without perforation or abscess without bleeding (principal); K21.9 Gastro-esophageal reflux disease without esophagitis; R10.13 Epigastric pain; R13.14 Dysphagia, pharyngoesophageal phase; K58.9 Irritable bowel syndrome, unspecified; K59.04 Chronic idiopathic constipation
CPT/HCPCS: 99214

== ENCOUNTER → 2024-04-13 08:48 | Outpatient (BNVA) | payer OTHER, SELFPAY | PROVIDERS: PCP Internal Medicine; Visit Provider Nurse Practitioner Family | DX: K58.9 Irritable bowel syndrome, unspecified (principal); K59.04 Chronic idiopathic constipation; K21.9 Gastro-esophageal reflux disease without esophagitis; K57.90 Diverticulosis of intestine, part unspecified, without perforation or abscess without bleeding; R10.13 Epigastric pain; R13.14 Dysphagia, pharyngoesophageal phase | CPT/HCPCS: 99212 ==

== ENCOUNTER 2024-06-26 06:26 | Outpatient (REF) | payer OTHER, SELFPAY ==
--- NOTE | ~2024-06-26 | FL_ITS ---
EXAMINATION: FL GUIDANCE ONLY HISTORY: M54.16 - Radiculopathy, lumbar region COMPARISON: None available. TECHNIQUE: Fluoroscopy time: 0.5 minutes. Cumulative Dose: 6.44 mGy. DAP: 0.111 mGym2 Images: 2. FINDINGS: Images demonstrate needles and contrast material in the regions of the bilateral L4-5 facet joints. FL/FL guidance in treatment room IMPRESSION: Fluoroscopy during procedure. Please see procedure report for additional information. Electronically signed by: Dennis Mohan MD 06/26/2024 01:39 PM EDT
== END 2024-06-26 06:27 | disposition home or self-care (01) ==
LOC: CF 06:26
PROVIDERS: Visit Provider Anesthesiology
DX: M54.16 Radiculopathy, lumbar region (principal)
CPT/HCPCS: 64483; 64484; J2003; J3301; Q9967

== ENCOUNTER 2024-06-26 11:01 | Outpatient (AMB) | payer OTHER, SELFPAY ==
[2024-06-26 11:09] VITALS: BP 149/94; PULSE 66; RESP 16; O2SAT 99
--- NOTE | 2024-06-26 11:09 | MHC.OFFVIS ---
Vital Signs 06/26/24 11:09 06/26/24 11:38 BP 149/94 H 169/98 H Blood Pressure Location Lt brachial Lt brachial Position Sitting Sitting Respiration 16 16 Pulse 66 84 Pulse Source Pulse Oximeter Pulse Oximeter Pulse Oximetry (%) 99 98 Oxygen Delivery Method Room Air Room Air Intake Visit Reasons: BILATERAL L4, L5 TFESI Intake Note: Pt offered a wheelchar escort to the lobby post procedure, but she declined Security System Technician Required: No Allergies No Known Allergies [No Known Allergies*] Allergy (Verified 06/26/24 11:10) Medication List - Last Reconciled 06/26/24 by Adelina Rodriguez LPN cholecalciferol (vitamin D3) 25 mcg PO DAILY clonazepam 0.5 mg PO DAILY PRN diclofenac sodium 1% 1 ea topical QID hydrochlorothiazide 25 mg PO DAILY hydroxyzine pamoate 25 mg PO BID losartan 100 mg PO DAILY meclizine mg PO melatonin 0 mg PO methylcellulose (laxative) (Citrucel) 500 mg PO DAILY mirtazapine 7.5 mg PO BEDTIME multivitamin 1 tab PO DAILY omeprazole 20 mg PO DAILY plecanatide (Trulance) 3 mg PO DAILY rosuvastatin 20 mg PO BEDTIME sertraline 300 mg PO Q OTHER DAY PRN PFSH Medical History Diverticulosis Cerebral aneurysm Mass of left axilla 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, low grade (MORIS 1) HTN (hypertension) Surgical History Hx of colonoscopy H/O brain surgery H/O knee surgery History of hysterectomy History of bilateral tubal ligation H/O LEEP Family History Father Colon cancer Mother HTN (hypertension) Social History Household Members: Family Housing: House Alcohol intake: never Patient Tobacco Use Status: Former Tobacco user service: No Current occupational status: unemployed Sexual orientation: Straight/Heterosexual Gender identity: Female Female Reproductive History Menstrual Age of Menarche: 13 Physical Exam Vital Signs: Last Vital Signs Pulse 84 06/26/24 11:38 Resp 16 06/26/24 11:38 BP 169/98 H 06/26/24 11:38 Pulse Ox 98 06/26/24 11:38 Oxygen Delivery Method Room Air 06/26/24 11:38 Assessment & Plan Assessment & Plan (1) Lumbar radiculopathy: Code(s): M54.16 - Radiculopathy, lumbar region Category: Medical Plan Transforaminal epidural steroid injection L4-5 bilateral. Informed consent was thoroughly explained to the patient before the procedure.? The patient came to the operating room.? She was positioned prone on operating table with a pillow under her abdomen.? Time-out was performed delineating correct site and side of the procedure, nature of the injection, name and date of of the patient. The lower back and upper buttocks of the patient was prepped with ChloraPrep and draped with sterile utility towels.? C-arm was brought over the operating field and sq picture of the L4 vertebra was delineated on the screen. Tilting C-arm ipsilateral to the right 1st 35 degrees most prominent image of the right L4 pedicle was demonstrated on the screen. 3 mm below the lowest point of the pedicle silhouette projection to the skin was chosen as the site of the needle insertion. The site was injected with lidocaine 1% forming skin wheal. After that 22 gauge 5 in needle was inserted through the skin wheal and advanced toward L4-5 right foramina under anterior posterior and oblique views. When needle on anterior posterior view was about 5 mm from the silhouette of the spinal column patient started to experience paresthesia. Needle was withdrawn and decision was made to change the position of the needle and advanced it low in the hole . The right superior articular process of L5 vertebra on oblique view 35 degrees was chosen as the initial target of needle insertion. It was injected with 1% lidocaine forming skin wheal. After that 22 gauge 5 in needle was inserted through the skin wheal and advanced to were the lateral border of the right superior articular process of L5 vertebra in tunnel vision fashion. When tip of the needle gently contacted the bone the needle was slightly deviated laterally advanced 2 mm and deviated medially and advanced into the foramina.. At this moment injection of the contrast was performed and it demonstrated perineural and epidural spread of the contrast. No intravascular and no intrathecal spread of the contrast was noted. After that injection of the treatment medicine 4 cc of Preservative-free lidocaine 1% mixed with Kenalog 40 mg was performed into the needle. After that the attention was concentrated on the left L5-S1 foramina. Again the left superior articular process of L5 was chosen as initial target of needle insertion. Lateral border of the left superior articular process of L5 projection to the skin was chosen the initial needle insertion site. It was injected with lidocaine 1%. After that 22 gauge 5 inch needle was inserted through the skin and advanced to were the lateral border of the left superior articular process of L5 in tunnel vision fashion. When needle gently contacted the bone deviated slightly lateral and then advanced 2 mm deeper and deviated medially. At this moment injection of the contrast was performed demonstrating perineural and epidural spread of the contrast. no intrathecal and no intravascular spread of the contrast was noted. After that 4 cc of preservative-free 1% lidocaine mixed with Kenalog 40 mg was injected into the needle. Upon completion of the injection needle was withdrawn sterile Band-Aids were applied. The patient tolerated the procedure well. Orders: Orders FL guidance in treatment room Today M54.16 - Radiculopathy, lumbar region Coding Level of Care Code Procedure Only Diagnoses Lumbar radiculopathy M54.16
[2024-06-26 11:38] VITALS: BP 169/98; PULSE 84; RESP 16; O2SAT 98
--- OUTSIDE RECORDS SUMMARY | 2024-06-26 13:17 | XMS_ITS | Encounter Summary ---
Author Organization [facility] Address [address] [place] [id number] Care Team Providers Care Shade Matcher Name Role Phone Waldo Bonner MD Primary Care Provide r Reason for Visit * Reason Comments Med Refill Encounter Details Date Type Department Care Team (Late st Contact Info) Description 01/12/2023 Refill [facility] MEDICINE [address] [place], [place] [phone] Waldo Bonner MD [address] [place] [address] [phone] Primary hypertension Social History Tobacco Use Types Packs/Day Years Used Date Smoking Tobacco: Never Smokeless Tobacco: Never Alcohol Use Standard Drinks/Week Comments Never 0 (1 standard drink = 0.6 oz pur e alcohol) Comments Unknown Sex and Gender Information Value Date Recorded Sex Assigned at Female 02/08/2022 10:29 AM EDT Legal Sex Female 10:29 AM EDT Gender Identity Female 02/08/2022 10:29 AM EDT Sexual Orientation Straight 02/08/2022 10 :29 AM EDT documented as of this encounter Plan of Treatment Upcoming Encounters Date Type Department Care Team (Late st Contact Info) Description 07/24/2024 10:30 AM EDT Office Visit [facility] MED[facility]INE [address] [place], [place] [phone] Waldo Bonner MD [address] [place] [address] [phone] documented as of this encounter Visit Diagnoses Diagnosis Primary hypertension Unspecified essential hypertension documented in this encounter Care Teams Shade Matcher Relationship Specialty Start Date End Date Waldo Bonner MD [address] [place] [phone] PCP - General Internal Medicine 03/27/15 documented as of this encounter
--- OUTSIDE RECORDS SUMMARY | 2024-06-26 13:17 | XMS_ITS | Encounter Summary ---
Author Organization [employer] Address [address] [place] [address] [address] [place] [address] Care Team Providers Care Licensed Real Estate Broker Name Role Phone Waldo Bonner MD Primary Care Provide r Reason for Visit * Reason Onset Date Comments appt 06/01/2023 Encounter Details Date Type Department Care Team ([facility] st Contact Info) Description 06/01/2023 Telephone [facility] ADULT DENTAL [address] [place] [address] Jeison Taylor DDS [address] [place] [address] appt Social History Tobacco Use Types Packs/Day Years Used Date Smoking Tobacco: Never Passive Smoke Exposure: Never Smokeless Tobacco: Never Alcohol Use Standard Drinks/Week Comments Never 0 (1 standard drink = 0.6 oz pur e alcohol) Depression Answer Date Recorded Patient Health Questionnaire-9 Score 2 03/24/2023 Patient Health Questionnaire-9 Score 2 03/24/2023 Last PHQ-9: Questionnaire Data Not on file 1 05/25/2022 Housing Stability Answer Date Recorded What is your housing situation today? I have rodney galan 03/24/[address] you li ve. Do you have problems with any of the following? None of the above 03/24/2023 Food Insecurity Answer Date Recorded Within the past 12 months, y ou worried that your food would run out before you got money to buy more: Never True 03/24/2023 Within the past 12 months,th e food you bought just didn't last and you didn't have enough money to get more: Never True Transportation Answer Date Recorded In the past 12 months, has l ack of transportation kept you from medical appts, meetings, work or from getting things needed for daily living? No 03/24/2023 Utilities Answer Date Recorded In the past 12 months, has t he electric, gas, oil or water company threatened to shut off services in your home? No 03/24/2023 Depression Answer Date Recorded Patient Health Questionnaire-2 Score 2 03/24/2023 Comments No Sex and Gender Information Value Date Recorded Sex Assigned at Female 02/08/2022 10:29 AM EDT Legal Sex Female 10:29 AM EDT Gender Identity Female 02/08/2022 10:29 AM EDT Sexual Orientation Straight 02/08/2022 10 :29 AM EDT documented as of this encounter Miscellaneous Notes * Telephone Encounter - Carolyn Davila - 06/01/2023 11:51 AM EST Patient has just been added on waiting list for periodic exam with Dr. Taylor. However,she was on wait list in [facility] since 08/2021 and was checking in on it. Wait list does not transfer to [facility] and would like to be scheduled. She is having pain and dental emergency. Informed that she should call in the morning for emergency appt but would like a regular appt scheduled to continue with treatment DR documented in this encounter Plan of Treatment Upcoming Encounters Date Type Department Care Team (Late st Contact Info) Description 07/24/2024 10:30 AM EDT Office Visit [facility] MEDICINE [address] [place] [address] Waldo Bonner MD [address] [place] [address] documented as of this encounter Visit Diagnoses Not on filedocumented in this encounter Additional Health Concerns Assessment Noted Time PHQ-9 Depression Total Score: 2 03/24/20 23 9:39 AM EST documented as of this encounter Care Teams Licensed Real Estate Broker Relationship Specialty Start Date End Date Waldo Bonner MD [address] [place] [phone] PCP - General Internal Medicine 03/27/15 documented as of this encounter
--- OUTSIDE RECORDS SUMMARY | 2024-06-26 13:17 | XMS_ITS | Encounter Summary ---
Author Organization [facility] Address [address] [place] [id number] Care Team Providers Care Hotel Maid Name Role Phone Waldo Bonner MD Primary Care Provide r Reason for Visit * Reason Comments Med Refill Encounter Details Date Type Department Care Team (Late st Contact Info) Description 03/18/2022 Refill [facility] MEDICINE [address] [place] [phone] Nicole Lyles FNP [address] [place] [address] Dept [place] [address] Social History Tobacco Use Types Packs/Day Years Used Date Smoking Tobacco: Never Assessed Comments Unknown Sex and Gender Information Value [...] Description 07/24/2024 10:30 AM EDT Office Visit [facility] MEDICINE [address] [place] [phone] Waldo Bonner MD [address] [place] [phone] documented as of this encounter Visit Diagnoses Not on filedocumented in this encounter Care Teams Hotel Maid Relationship Specialty Start Date End Date Waldo Bonner MD [address] [place] [address] PCP - General Internal Medicine 03/27/15 documented as of this encounter
--- OUTSIDE RECORDS SUMMARY | 2024-06-26 13:17 | XMS_ITS | Encounter Summary ---
Author Organization [facility] [facility] Address [address] [place] [address] [address] [place] [address] Care Team Providers Care Utilization Specialist Name Role Phone Waldo Bonner MD Primary Care Provide r Encounter Details Date Type Department Care Team (Latest Contact Info) Description 11/10/2018 Abstract [facility] CONVERSIONS Dental, Provider, DDS Social History Tobacco Use Types Packs/Day Years [...] Description 07/24/2024 10:30 AM EDT Office Visit [facility] MEDICINE [address] [place] [address] Waldo Bonner MD [address] [place] [address] documented as of this encounter Visit Diagnoses Not on filedocumented in this encounter Care Teams Utilization Specialist Relationship Specialty Start Date End Date Waldo Bonner MD [address] [place] [address] PCP - General Internal Medicine 03/27/15 documented as of this encounter
--- OUTSIDE RECORDS SUMMARY | 2024-06-26 13:17 | XMS_ITS | Clinical Summary ---
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 7 Active meclizine (Antivert) 25 MG tablet Take 1 tablet by mouth every 8 (eight) hours. 0 Active omega-3 (Fish Oil) 1000 MG capsule Take 1 capsule by mouth 3 times daily. 2 Active Diclofenac Sodium (Voltaren) 1 % gelIndications:Low back pain radiating to left leg Apply 2g up to 4x/d as needed for pain/swelli ng 100 g 4 Active tiZANidine (Zanaflex) 2 MG tabletIndications:L ow back pain radiating to left leg Take 1 tablet (2 mg) by mouth every 8 (eight) hours if needed for muscle spasms. 30 tablet 4 Active losartan (Cozaar) 100 MG tabletIndications:P rimary hypertension Take 1 tablet (100 mg) by mouth Once per day. 30 tablet 6 4 Active potassium chloride CR (Klor-Con M10) 10 MEQ ER tabletIndications:H ypokalemia Take one tablet daily x 5 days. Do not crush or chew. 5 tablet 4 Active hydroCHLOROthiazide (HYDRODiuril) 25 MG tabletIndications:P rimary hypertension TAKE 1 TABLET BY MOUTH EVERY DAY IN THE MORNING 30 tablet 6 4 Active rosuvastatin (Crestor) 20 MG tabletIndications:M ixed hyperlipidemia TAKE 1 TABLET BY MOUTH EVERY DAY IN THE MORNING 30 tablet 6 4 Active amoxicillin-clavula florinda (Augmentin) 875-125 MG tablet Take 1 tablet by mouth 2 times daily for 7 days. 14 tablet 5 05/30/19 25 Active Problems Problem Noted Date Diagnosed Date Nephrolithiasis 11/15/2023 Assessment & Plan (11/15/2023 12:52 PM EDT): Seen by Urology 08/11/2023 Low back pain radiating to left leg 11/15/2023 Assessment & Plan (02/16/2024 10:29 AM EST): Pt with c/o new onset low back pain that radiates to left leg Exam was suggestive of muscle spasm Despite Topical NSAIDS, Muscle relaxant, and PT eval Plain films Lumbar spine no abnormality MRI of LS spine 02/13/2024: IMPRESSION: 1. Mild to moderate degenerative spondylosis of the lumbar spine, most significant spanning L3-4 through L5-S1, most severe at L4-5. 2. Edematous Schmorl's node herniation the inferior right endplate of L4. 3. No high-grade central canal stenosis. Moderate central stenosis and moderate to severe left lateral recess stenosis at L4-5 due to a left paracentral and lateral disc extrusion. Moderate to severe right neural foraminal impingement at L4-5. 4. Annular fissuring evident at L3-4, L4-5, and L5-S1. Pt referred to Dr. Pires at [facility] Assessment & Plan (11/15/2023 1:04 PM EDT): Pt with c/o new onset low back pain that radiates to left leg Exam suggestive of muscle spasm Plan: Topical NSAIDS, Muscle relaxant, PT eval Plain films Lumbar spine Routine physical examination 07/14/2023 Assessment & Plan (07/14/2023 9:42 AM EDT): Physical exam within normal limits BMI 31.0-31.9,adult 07/14/2023 Assessment & Plan (07/14/2023 9:44 AM EDT): Patient has been counseled and educated about diet and exercise. Personal goal of weight loss discussedPatient has comorbidity of:Patient has comorbidity of: Extruded tooth 06/27/2023 Lateral periodontal abscess 06/27/2023 EIN (endometrial intraepithelial neoplasia) 03/11 Assessment & Plan (02/16/2024 10:20 AM EST): Pt has a Hx of this s/p robotic assisted TLH/BS as treatment of EIN. He was last seen 02/11/2021 by [facility]. She is now only under the care of Dr Kurtz. 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 He was last seen 02/11/2021 by [facility]. She is supposed to be now only under the care of Dr Kurtz. Last seen 11/01/2022 Congenital arteriovenous malformation 03/24/2023 03/24/2023 Assessment & Plan (03/24/2023 9:41 AM EST): Pt has a Hx of s subarachnoid bleed due to AVM and aneurysm 08/31/2014 in [place],. 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 Pt was referred to neurologist she was last seen 10/02/2018 Pt has been taking Percocet 5/325 q 6 hrs PRN rx by previous Neurosurgeon for headaches thought to be associated with her surgery. Last visit c/o worsening headaches not improving despite treatment with Amitriptyline by neurology Pt was referred to a Neurosurgeon for evaluation Repeat MRI of brain on 09/30/2016 showed: stable appearing postoperative changes. 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 Preventative health care 03/24/2023 Assessment & Plan (02/16/2024 10:22 AM EST): Mammogram: 01/17/2024 Normal Pap Smear: s/p robotic assisted TLH/BS as treatment of EIN. Colonoscopy: 05/12/2023 Recommendations were to repeat Colonoscopy in 5 years due to FH of CRC or earlier if clinically indicated Vaccines: Covid- Done Td Flu shot: Hep B initiated Dexa scan: Not age appropriate Assessment & Plan (11/15/2023 12:56 PM EDT): Mammogram: 04/01/2023 Normal Pap Smear: s/p robotic assisted TLH/BS as treatment of EIN. Colonoscopy: 05/12/2023 Recommendations were to repeat Colonoscopy in 5 years due to FH of CRC or earlier if clinically indicated Vaccines: Covid- Done Td Flu shot: Hep B initiated Dexa scan: Not age appropriate Assessment & Plan (07/14/2023 9:39 AM EDT): Mammogram: 12/28/2022 Normal Pap Smear: s/p robotic assisted TLH/BS as treatment of EIN. Colonoscopy: 05/12/2023 Recommendations were to repeat Colonoscopy in 5 years due to FH of CRC or earlier if clinically indicated Vaccines: Covid- Done Td Flu shot: Hep B initiated Dexa scan: Not age appropriate Assessment & Plan (03/24/2023 9:57 AM EST): Mammogram: 12/28/2022 Normal Pap Smear: s/p robotic assisted TLH/BS as treatment of EIN. Colonoscopy: Scheduled for May 2023 Vaccines: Covid- Done Td Flu shot: Hep B initiated Dexa scan: Not age appropriate Chronic pain of left knee 03/24/2023 Assessment & Plan (03/24/2023 9:51 AM EST): Pt with chronic left knee pain, under the care of [facility] s/p arthorscopic procedure 03/16/2023 and has a follow up with them today, records requested Globus sensation 03/24/2023 Assessment & Plan (02/16/2024 10:31 AM EST): Pt with previous c/o globus sensation for months Exam unremarkable On a PPI Referred to ENT evaluation for laryngoscopy, unclear if she kept appointment or not records requested previously, not received. Today will schedule appointment for her Assessment & Plan (11/15/2023 12:54 PM EDT): Pt with previous c/o globus sensation for months Exam unremarkable Referred to ENT evaluation for laryngoscopy, unclear if she kept appointment or not records requested Assessment & Plan (07/14/2023 9:41 AM EDT): Pt with c/o globus sensation for months Exam unremarkable Referred to ENT evaluation for laryngoscopy Assessment & Plan (03/24/2023 9:58 AM EST): Pt with c/o globus sensation for months Exam unremarkable Plan: ENT evaluation for laryngoscopy Mass of left axilla 03/24/2023 Assessment & Plan (07/14/2023 9:37 AM EDT): Pt with palpable soft tissue prominence left axillary region, exam suggestive of adipose tissue prominence 2 x 3 cm . Pt also c/o pain Seen by general surgeon who reassured her after reviewing her soft tissue US. No further work up Recent mammogram was negative Assessment & Plan (03/24/2023 10:03 AM EST): Pt with palpable soft tissue prominence left axillary region, exam suggestive of lipoma, or adipose tissue prominence 2 x 3 cm . Pt also c/o pain Plan: Will refer to general surgeon, obtain soft tissue US Recent mammogram was negative Essential hypertension 04/13/2022 Assessment & Plan (02/16/2024 10:20 AM EST): Patient with Hypertension BP uncontrolled Most recent electrolytes, Bun and Creatinine done on: Lab Results Component Value Date NA 140 02/15/2024 NA 137 03/24/2023 K 3.0 (L) 02/15/2024 K 4.0 03/24/2023 CL 101 02/15/2024 CL 102 03/24/2023 BUN 13 02/15/2024 BUN 8 (L) 03/24/2023 CREATININE 0.71 02/15/2024 CREATININE 0.65 03/24/2023 K-dur sent to her pharmacy, will repeat K level next week She is on a regimen of Hctz 12.5 mg po daily and Losartan 100 mg po daily, Plan: Repeat BMP after K-dur x 5 days pt was referred to Nephrology in the past for a renal consultation given labile HTN, f/u with me in 4 months patient advised to adhere to a low sodium diet, encouraged about medication compliance, counseled about weight loss. Assessment & Plan (11/15/2023 1:08 PM EDT): Patient with Hypertension BP uncontrolled Most recent electrolytes, Bun and Creatinine done on: 03/2023 were within normal limits. She is on a regimen of Hctz 12.5 mg po daily and Losartan 50 mg po daily, Plan: Increase Losartan to 100 mg po daily, Repeat BMP pt was referred to Nephrology in the past for a renal consultation given labile HTN, f/u with me in 4 months patient advised to adhere to a low sodium diet, encouraged about medication compliance, counseled about weight loss. Assessment & Plan (07/14/2023 9:41 AM EDT): Patient with Hypertension BP controlled Most recent electrolytes, Bun and Creatinine done on: 03/2023 were within normal limits. She is on a regimen of Hctz 12.5 mg po daily and Losartan 50 mg po daily, Plan: Continue current regimen pt was referred to Nephrology in the past for a renal consultation given labile HTN, f/u with me in 4 months patient advised to adhere to a low sodium diet, encouraged about medication compliance, counseled about weight loss. Assessment & Plan (03/24/2023 10:04 AM EST): Patient with Hypertension BP elevated Most recent electrolytes, Bun and Creatinine done on: 10/02/2021 were within normal limits. Will repeat She is on a regimen of Hctz 12.5 mg po daily and Losartan 25 mg po daily, Plan: Increase Losartan to 50 mg po daily, BP check with nurse in 1 month pt was referred to Nephrology in the past for a renal consultation given labile HTN, f/u with me in 3 months patient advised to adhere to a low sodium diet, encouraged about medication compliance, counseled about weight loss. Koffi gonzalez 04/13/2022 Mild major depression, single episode 04/17/2015 Assessment & Plan (07/14/2023 10:01 AM EDT): On a regimen of Sertraline 50 mg po daily Pt already seeing a psychotherapist her name is Ingagwendolynhenok Jm Assessment & Plan (03/24/2023 9:41 AM EST): On a regimen of Sertraline 50 mg po daily Pt already seeing a psychotherapist her name is Ingagwendolynhenok Jm Hyperlipidemia 03/28/2015 Assessment & Plan (02/16/2024 10:21 AM EST): Patient with elevated lipids. Most recent lipid profile from: Lab Results Component Value Date TRIG 160 (H) 02/15/2024 TRIG 197 (H) 03/24/2023 CHOL 121 02/15/2024 CHOL 205 (H) 03/24/2023 LDLCHOLCAL 57 02/15/2024 LDLCHOLCAL 131 (H) 03/24/2023 HDL 32 (L) 02/15/2024 HDL 35 (L) 03/24/2023 Pt on Crestor 20 mg daily and fish oil 1000 mg po TID Plan: advised to try to adhere to a low cholesterol diet, counseled and educated about diet and exercise, Patient encouraged to come up with a personal goal for weight loss. Repeat Lipid profile Pt counseled and educated about diet and exercise. Assessment & Plan (11/15/2023 12:55 PM EDT): Patient with elevated lipids. Most recent lipid profile from: 03/2023 shows Component Ref Range & Units 3 mo ago (03/24/23) 2 yr ago (05/12/21) 2 yr ago (09/22/20) Triglycerides <150 mg/dL 197 High 456 High CM 384 High CM Comment: Desirable Triglyceride: less than 150 mg/dLBorderline High Triglyceride 150-199 mg/dLHigh Triglyceride: 200-499 mg/dLVery High Triglyceride: greater than or equal to 5OO mg/dL Cholesterol <200 mg/dL 205 High Comment: Desirable Cholesterol: less than 200 mg/dLBorderline High Cholesterol: 200-239 mg/dLHigh Cholesterol: greater than 239 mg/dL LDL Cholesterol Calculated <100 mg/dL 131 High Comment: Desirable LDL: less than 100 mg/dLNear Optimal/Above Optimal LDL: 110- 129 mg/dLBorderline High LDL: 130-159 mg/dLHigh LDL: 160-189 mg/dLVery High LDL: greater than or equal to 190 mg/dL HDL Cholesterol >40 mg/dL 35 Low 28 Low R 36 Low R Pt on Crestor 20 mg daily and fish oil 1000 mg po TID Plan: advised to try to adhere to a low cholesterol diet, counseled and educated about diet and exercise, Patient encouraged to come up with a personal goal for weight loss. Repeat Lipid profile Pt counseled and educated about diet and exercise. Assessment & Plan (07/14/2023 9:40 AM EDT): Patient with elevated lipids. Most recent lipid profile from: 03/2023 shows Component Ref Range & Units 3 mo ago (03/24/23) 2 yr ago (05/12/21) 2 yr ago (09/22/20) Triglycerides <150 mg/dL 197 High 456 High CM 384 High CM Comment: Desirable Triglyceride: less than 150 mg/dLBorderline High Triglyceride 150-199 mg/dLHigh Triglyceride: 200-499 mg/dLVery High Triglyceride: greater than or equal to 5OO mg/dL Cholesterol <200 mg/dL 205 High Comment: Desirable Cholesterol: less than 200 mg/dLBorderline High Cholesterol: 200-239 mg/dLHigh Cholesterol: greater than 239 mg/dL LDL Cholesterol Calculated <100 mg/dL 131 High Comment: Desirable LDL: less than 100 mg/dLNear Optimal/Above Optimal LDL: 110- 129 mg/dLBorderline High LDL: 130-159 mg/dLHigh LDL: 160-189 mg/dLVery High LDL: greater than or equal to 190 mg/dL HDL Cholesterol >40 mg/dL 35 Low 28 Low R 36 Low R Pt on Crestor 20 mg daily and fish oil 1000 mg po TID Plan: advised to try to adhere to a low cholesterol diet, counseled and educated about diet and exercise, Patient encouraged to come up with a personal goal for weight loss. Pt counseled and educated about diet and exercise. Assessment & Plan (03/24/2023 9:35 AM EST): Patient with elevated lipids. Most recent lipid profile from: 05/12/2021 shows a total cholesterol of: 211 triglycerides of: 456 HDL of: 28 and LDL of: TNP Pt on Crestor 20 mg daily and fish oil 1000 mg po TID Plan: Repeat Lipid profile, advised to try to adhere to a low cholesterol diet, counseled and educated about diet and exercise, Patient encouraged to come up with a personal goal for weight loss. Pt counseled and educated about diet and exercise. Anxiety 03/28/2015 Encounters Date Type Department Care Team Description 05/23/2024 10:20 AM EST Office Visit [facility] [address] [place] [address] Name, MD Jeyson Acute frontal sinusitis, recurrence not specified (Primary Dx); Sore throat; Cough, unspecified type; Myalgia 04/09/2024 Orders Only [facility] External Provider, [facility] from Last 3 Months Immunizations Name Administration Dates Next Due Hep B, adult 08/18/2015,05/19/2015,04/17/2015 Influenza injectable quadriv alent IIV4 with preservative 02/19/2016 Influenza, IIV3, injectable 01/09/2018 Influenza, Unspecified 01/25/2018 Tdap 02/28/2018,09/09/2016 Social History Tobacco Use Types Packs/Day Years Used Date Smoking Tobacco: Never Passive Smoke Exposure: Never Smokeless Tobacco: Never Tobacco Cessation:Counseling Given: Not Answered Alcohol Use Standard Drinks/Week Comments Never 0 (1 standard drink = 0.6 oz pur e alcohol) Alcohol Answer Date Recorded Frequency of Alcohol Consumption Not on file 11/15/2023 Average Number of Drinks Not on file 024 Frequency of Binge Drinking Not on file 09/2023 Score 0 11/15/2023 Depression Answer Date Recorded Patient Health Questionnaire-9 Score 0 11/15/2023 Patient Health Questionnaire-9 Score 0 11/15/2023 Last PHQ-9: Questionnaire Data Not on file 0 11/15/2023 Housing Stability Answer Date Recorded What is [...] Answer Date Recorded Patient Health Questionnaire-2 Score 0 11/15/2023 Internet Access Answer Date Recorded Internet Access Q1 Yes 12/12/2023 Internet Access Q2 Not on file 12/12/2023 Comments No Sex and Gender Information Value Date Recorded Sex Assigned at Female 02/08/2022 10:29 AM EDT Legal Sex Female 10:29 AM EDT Gender Identity Female 02/08/2022 10:29 AM EDT Sexual Orientation Straight 02/08/2022 10 :29 AM EDT Last Filed Vital Signs Vital Sign Reading Time Taken Comments Blood Pressure 138/80 05/23/2024 10:08 AM EST Pulse 93 05/23/2024 10:08 AM EST Temperature 36.7 ??C (98.1 ??F) 05/23/2024 10:[address] Respiratory Rate 19 05/23/2024 10:08 AM EST Oxygen Saturation 96% 05/23/2024 10:08 AM EST Inhaled Oxygen Concentration - - Weight 86.6 kg (191 lb) 05/23/2024 10:08 AM EST Height 167.6 cm (5' 6 ) 05/23/2024 10:08 AM EST Body Mass Index 30.83 05/23/2024 10:08 AM EST Plan of Treatment Upcoming Encounters Date Type Department Care Team (Late st Contact Info) Description 07/24/2024 10:30 AM EDT Office Visit [facility] [address] [place] [address] Waldo Bonner MD [address] [place] [address] Health Maintenance Due Date Last Done Comments CT Colonography 1976 FIT DNA/Cologuard 1976 FIT 1976 FOBT 1976 HIV Screening 1975 Sigmoidoscopy 1975 Family Planning (PISQ) 12/03/1991 Hepatitis C Screening 1994 Dental Oral Exam 05/14/2019 11/10/2018, , 08/08/2015 Dental Prophylaxis 05/14/2019 11/10/2018, 1 06/07/2017, 10/04/2017, Additional history exists Dental X-Ray: Bitewings 11/12/2019 11/11/19 19, 10/04/2017, 03/23/2016, Additional history exists Dental X-Ray: Full Mouth 11/11/2021 11/10/2018, 07/11 COVID-19 Vaccine ( season) 2023 09/22/2020, 08/21/2020 Influenza Vaccine (#1) 2023 8, 01/09/2018, 02/19/2016 SDOH Screening 04/27/2024 04/27/2023 Alcohol/Substance Use Screening 11/14/2024 11/15/2023 Depression Screening 11/14/2024 11/15/2023, 11/15/19 24 Mammogram 01/02/2025 01/03/2024, 03/12, 12/28/2022, Additional history exists Tobacco Screening 05/23/2025 05/23/2024 HPV/Cotest 09/22/2025 09/22/2020, 09/22/2020 Pap Smear 09/22/2025 09/22/2020 Zoster Vaccines (1 of 2) 2026 DTaP/Tdap/Td Vaccines (3 - Td or Tdap) 02/29/2028 02/28/2018, 09/09/2016 Colonoscopy 05/12/2028 05/12/2023 Colorectal Cancer Screening 05/12/2028 Lipid Panel 02/14/2029 02/15/2024, 1207/2022, 05/12/2021, Additional history exists RSV Patients and Patients Aged 60 years or older (1 - 1-dose 75+ series) 12/03/2051 Hepatitis B Vaccines Completed 08/18/2015, 05/19/2015, 04/17/2015 HIB Vaccines Aged Out No longer eligi ble based on patient's age to complete this topic HPV Vaccines Aged Out No longer eligi ble based on patient's age to complete this topic Hepatitis A Vaccines Aged Out No long er eligible based on patient's age to complete this topic IPV Vaccines Aged Out No longer eligi ble based on patient's age to complete this topic Meningococcal Vaccine Aged Out No donovan ariana eligible based on patient's age to complete this topic Pneumococcal Vaccine: Pediatrics (0 to 5 Years) and At-Risk Patients (6 to 49) Years) Aged Out No longer eligible based on patient's age to complete this topic RSV under 20 months Aged Out No longe r eligible based on patient's age to complete this topic Rotavirus Vaccines Aged Out No longer eligible based on patient's age to complete this topic Procedures Procedure Name Priority Date/Time Associated Diagnosis Comments POCT RAPID STREP A Routine 05/23/2024 10 :31 AM EST Sore throat Cough, unspecified type Myalgia POCT RAPID COVID ANTIGEN Routine 05/23/2024 10:31 AM EST Sore throat Cough, unspecified type Myalgia POCT INFLUENZA A (ID NOW RAPID MOLECULAR) Routine 05/23/2024 10:31 AM EST Sore throat Cough, unspecified type Myalgia POCT INFLUENZA B (ID NOW RAPID MOLECULAR) Routine 05/23/2024 10:31 AM EST Sore throat Cough, unspecified type Myalgia CT ABDOMEN PELVIS W CONTRAST Routine 04/11/2024 6:54 AM EST LIPID PANEL, STANDARD Routine 02/15/2024 9:30 AM EST Essential hypertension BI MAMMOGRAM SCREENING TOMOSYNTHESIS BILATERAL Routine 01/03/2024 12:40 PM EDT HM COLONOSCOPY Routine 05/12/2023 ZZZ HISTORICAL HPV E6/E7 RFLX NEYDA 16 18/45 Routine 09/22/2020 12:50 PM EDT HM PAP/HPV Routine 09/22/2020 PROPHYLAXIS - ADULT Routine 11/10/2018 1 2:00 AM EDT INTRAORAL - COMPLETE SERIES OF RADIOGRAPHIC IMAGES Routine 11/10/2018 12:00 AM EDT PERIODIC ORAL EVALUATION - ESTABLISHED PATIENT Routine 11/10/2018 12:00 AM EDT from Last 3 Months or Most Recently Relevant to Health Maintenance Results * Influenza B (ID NOW Rapid Molecular) (05/23/2024 10:31 AM EST) Influenza B Negative Negative, Indeterminate [facility] Swab 05/23/2024 10:3 1 AM EST us Jeyson Lopez MD POINT OF CARE TEST ENTER/EDIT OR DERABLES Final Result Performing Organization Address [facility]/ZIP Co de Phone Number [facility] [address] [place] [phone] * Influenza A (ID NOW Rapid Molecular) (05/23/2024 10:31 AM EST) Influenza A Negative Negative, Indeterminate [facility] Swab 05/23/2024 10:3 1 AM EST us Jeyson Lopez MD POINT OF CARE TEST ENTER/EDIT OR DERABLES Final Result Performing Organization Address [facility]/ZIP Co de Phone Number [facility] [address] [place] [phone] * POCT Rapid COVID Ag (05/23/2024 10:31 AM EST) Rapid COVID Ag Negative Swab 05/23/2024 10:3 1 AM EST us Jeyson Name POINT OF CARE TEST ENTER/EDIT OR DERABLES Final Result * POCT rapid strep A manually resulted (05/23/2024 10:31 AM EST) Rapid Strep A Screen Negative Negative, None Detected Swab 05/23/2024 10:3 1 AM EST us Jeyson Name POINT OF CARE TEST ENTER/EDIT OR DERABLES Final Result * CT Abdomen Pelvis w/ Contrast (04/11/2024 6:54 AM EST) Anatomical Region Laterality Modality Body, Pelvis, Abdomen Computed T omography 04/11/2024 6:54 AM EST Narrative 04/11/2024 6:56 AM EST ? [facility] ?[address] ?[place] [address] ? CT Scan Report ? Signed ? Patient: Denise Boyce ?MR#: [id number] ?? 3 ? : 1975 ?Acct:[id number] ? Age/Sex: 48 / F ?ADM Date: 04/09/24 ? Loc: HO.CT ? Attending Dr: Sarah Samano [employer] ? Ordering Physician: Sarah Samano [employer] ?? Date of Service: 04/09/24 ?? Procedure(s): CT abdomen pelvis w IV con ?? Accession Number(s): [id number] ? cc: Waldo Thakkar MD; Sarah Samano [employer] ? Report Number: ?? [id number]: Total DLP = ?0.00 mGy-cm ? CLINICAL HISTORY: R10.9 - Unspecified abdominal pain ? CT abdomen and pelvis with contrast ? Comparison: None ? Findings: ?? The lung bases are clear. ?? The liver, gallbladder, spleen, adrenal glands and pancreas are ?? unremarkable. ?? Kidneys enhance symmetrically and are without obstructive uropathy or ?? suspicious lesion. ?? Ureters and bladder are within normal limits. ?? No bowel obstruction. Normal appendix. Diverticulosis noted throughout the ?? colon. Mild fecal retention within the distal colon. ?? Tiny fat containing umbilical hernia. ?? Uterus appears surgically absent. ?? Left adnexal cysts measuring up to 3.3 cm ?? No free air, free fluid, abscess or adenopathy. ?? No acute osseous finding. ? Impression: ?? No definite acute process. Mild fecal retention within the distal colon. ? This document has been electronically signed by: Igor Rice MD on ?? 04/11/2024 06:54:38 ? Dictated By: ?Igor Rice MD ? Signed By: ?<Electronically signed by Igor Rice MD in OV> ? 04/11/24 0655 ? DD/ 3 ? TD/TT: 04/11/24653 ? Emergency Room Technician: ? Procedure Note Frannie, Image - 04/11/[address] [place] [address] [address] Scan Report Signed Patient: Kushal Boyce#: [id number] 3 : 1975Acct:[id number] Age/Sex: 48 / FADM Date: 04/09/24 Loc: HO.CT Attending Dr: Sarah LINDQUIST Ordering Physician: Sarah Samano Date of Service: 04/09/24 Procedure(s): CT abdomen pelvis w IV con Accession Number(s): [id number] cc: Waldo Thakkar MD; [facility] Report Number: [id number]: Total DLP = 0.00 mGy-cm CLINICAL HISTORY: R10.9 - Unspecified abdominal pain CT abdomen and pelvis with contrast Comparison: None Findings: The lung bases are clear. The liver, gallbladder, spleen, adrenal glands and pancreas are unremarkable. Kidneys enhance symmetrically and are without obstructive uropathy or suspicious lesion. Ureters and bladder are within normal limits. No bowel obstruction. Normal appendix. Diverticulosis noted throughout the colon. Mild fecal retention within the distal colon. Tiny fat containing umbilical hernia. Uterus appears surgically absent. Left adnexal cysts measuring up to 3.3 cm No free air, free fluid, abscess or adenopathy. No acute osseous finding. Impression: No definite acute process. Mild fecal retention within the distal colon. This document has been electronically signed by: Igor Rice MD on 04/11/2024 06:54:38 Dictated By: Igor Rice MD Signed By: <Electronically signed by Igor Rice MD in OV> 04/11/2455 DD/ 3 TD/TT: 04/11/24653 Emergency Room Technician: [facility] External Provider IMG CT PROCEDURES Final Result * (ABNORMAL) Lipid Panel, Standard (02/15/2024 9:30 AM EST) Triglycerides 160(H) <150 mg/dL [facility] Comment:Desirable Triglyceri de: less than 150 mg/dLBorderline High Triglyceride 150-199 mg/dLHigh Triglyceride: 200-499 mg/dLVery High Triglyceride: greater than or equal to 5OO mg/dL Cholesterol 121 <200 mg/dL [facility] Comment:Desirable Cholestero l: less than 200 mg/dLBorderline High Cholesterol: 200-239 mg/dLHigh Cholesterol: greater than 239 mg/dL LDL Cholesterol Calculated 57 <100 mg/dL [facility] Comment:Desirable LDL: less than 100 mg/dLNear Optimal/Above Optimal LDL: 110- 129 mg/dLBorderline High LDL: 130-159 mg/dLHigh LDL: 160-189 mg/dLVery High LDL: greater than or equal to 190 mg/dL HDL Cholesterol 32(L) >40 mg/dL [facility] Comment:Desirable HDL: great er than 40 mg/dL Note: This HDL assay may give artificially low results in patients with liver disease. Blood Venous blood specimen / Unknown 02/15/2024 9:30 AM EST 02/15/2024 11:20 AM EST Waldo Alicia MD LAB BLOOD ORDERABLES Final Result [facility] [address] [place] [phone] * BI Mammogram Screening Tomosynthesis Bilateral (01/03/2024 12:40 PM EDT) Anatomical Region Laterality Modality Breast Bilateral Mammography 01/03/2024 12:4 0 PM EDT Narrative 01/13/2024 8:16 PM EDT ? [facility] ? [address] ?[place] [id number] ? Mammography Report ? Signed ? Patient: Denise Boyce ?MR#: [id number] ?? 3 ? : 1975 ?Acct:[id number] ? Age/Sex: 48 / F ?ADM Date: 01/03/24 ? Loc: HO.MAMMO ? Attending Dr: Waldo Thakkar MD ? Ordering Physician: Eder Kurtz MD ?Results: 0Incompl ?? ete: Needs Additional Imaging Evaluation ? Date of Service: 01/03/24 ?Follow Up: Additional Imagi ?? ng ? Procedure(s): MM tomosynthesis screening BI ?? Accession Number(s): [id number] ? cc: Waldo Thakkar MD; Eder Kurtz MD ? EXAMINATION: ?? MM SCREENING DIGITAL BREAST TOMOSYNTHESIS, BILATERAL ? CLINICAL INFORMATION: ? Screening. Asymptomatic. ? COMPARISON: ?? Mammography: Comparison is made with available priors ? TECHNIQUE: ?? Digital breast mammography with tomosynthesis is performed in both the ?? craniocaudal and mediolateral oblique views along with computer-aided ?? detection (CAD). ? FINDINGS: ?? There are scattered areas of fibroglandular density (ACR BI-RADS breast ?? composition Category b). ?? Right: ?? There are no significant masses, abnormal calcifications, or other ?? abnormalities. ? Left: ?? Asymmetry with questioned distortion lateral breast middle depth on CC ?? view. ?? No suspicious calcifications or other abnormal findings. ? MM/MM tomosynthesis screening BI ?? IMPRESSION: ?? Additional imaging is recommended ? ASSESSMENT: ? BI-RADS BI-RADS 0 - Incomplete: Needs additional Imaging. ? RECOMMENDATION: ?? 1. Additional views of the left breast ?? 2. Targeted ultrasound if warranted after review of the additional ?? views. ?? 3. Radiology department staff will contact the patient for additional ?? imaging. ? Additional Imaging required ? This examination should not preclude the clinical evaluation of a ?? suspicious palpable abnormality. ? This patient's information was entered into a reminder system with a ?? target due date for their next mammogram. ? Electronically signed by: ??Brianda Brooks DO ??01/13/2024 08:13 PM EDT ? Dictated By: ?Brianda Brooks DO ? Signed By: ?<Electronically signed by Brianda Brooks, DO in OV> ? 01/13/24 2013 ? DD/ 1240 ? TD/TT: 01/03/24 1255 ? Emergency Room Technician: ? Procedure Note Edward Kathleen - 01/13/2024 [facility] [address] [place] [address] Dr. [place], [place] [address] Mammography Report Signed Patient: Kushal Boyce#: [id number] 3 : 1975Acct:[id number] Age/Sex: 48 / FADM Date: 01/03/24 Loc: HO.MAMMO Attending Dr: Waldo Thakkar MD Ordering Physician: Eder Kurtzesults: 0Incompl ete: Needs Additional Imaging Evaluation Date of Service: 01/03/24Follow Up: Additional Imagi ng Procedure(s): MM tomosynthesis screening BI Accession Number(s): [id number] cc: Waldo Thakkar MD; Eder Kurtz MD EXAMINATION: MM SCREENING DIGITAL BREAST TOMOSYNTHESIS, BILATERAL CLINICAL INFORMATION: Screening. Asymptomatic. COMPARISON: Mammography: Comparison is made with available priors TECHNIQUE: Digital breast mammography with tomosynthesis is performed in both the craniocaudal and mediolateral oblique views along with computer-aided detection (CAD). FINDINGS: There are scattered areas of fibroglandular density (ACR BI-RADS breast composition Category b). Right: There are no significant masses, abnormal calcifications, or other abnormalities. Left: Asymmetry with questioned distortion lateral breast middle depth on CC view. No suspicious calcifications or other abnormal findings. MM/MM tomosynthesis screening BI IMPRESSION: Additional imaging is recommended ASSESSMENT: BI-RADS BI-RADS 0 - Incomplete: Needs additional Imaging. RECOMMENDATION: 1. Additional views of the left breast 2. Targeted ultrasound if warranted after review of the additional views. 3. Radiology department staff will contact the patient for additional imaging. Additional Imaging required This examination should not preclude the clinical evaluation of a suspicious palpable abnormality. This patient's information was entered into a reminder system with a target due date for their next mammogram. Electronically signed by: Brianda Brooks DO 01/13/2024 08:13 PM EDT Dictated By: Brianda Brooks DO Signed By: <Electronically signed by Brianda Brooks DO in OV> 01/13/242012 DD/ 1240 TD/TT: 01/03/24 1255 Emergency Room Technician: [facility] External Provider IMG BI PROCEDURES Edited Result - Final * Hm Colonoscopy (05/12/2023) Colonoscopy Normal Normal Don Isabel MD HEALTH MAINTENANCE Final Result * HPV E6/E7 RFLX NEYDA 16 18/45 (09/22/2020 12:50 PM EDT) Pathologist [facility] HPV mRNA E6/E7 rflx Not Detected Not Detected [facility] Comment: Methodology: [employer] Loader-Mediated Amplification This assay detects E6/E7 viral messenger RNA (mRNA) from 14 high-risk HPV types (16,18,31,33,35,39,45,51,52,56,58,59,66,68). The analytical performance characteristics of this assay have been determined by [employer]. The modifications have not been cleared or approved by the FDA. This assay has been validated pursuant to the CLIA regulations and is used for clinical purposes. For additional information, please refer to http://education.[employer]/faq/HIL480h8 (This link if provided for information/ educational purposes only.) THIS TEST WAS PERFORMED AT: [facility] [address] [place] [address],[address] [place], [place] ??[phone] LUIS E JI MD 09/22/2020 12:5 0 PM EDT Eder Kurtz MD HISTORICAL/NON ORDERABLE LABS Fi nal Result [facility] [address] * Hm Pap Smear (09/22/2020) Historical Provider HEALTH MAINTENANCE Final Result from Last 3 Months or Most Recently Relevant to Health Maintenance Insurance [facility] - [facility] Care Teams Boat Wrapper Relationship Specialty Start Date End Date Waldo Bonner MD [address] [place] [address] PCP - General Internal Medicine 03/27/15
--- OUTSIDE RECORDS SUMMARY | 2024-06-26 13:17 | XMS_ITS | Clinical Summary ---
Author Organization [facility] Address [address] [place] [address] Phone Care Team Providers Care Reel Fed Printer Name Role Phone Waldo Thakkar MD Primary Care Provi donavan Allergies No known active allergies Encounters Date Type Department Care Team Description 05/08/2024 7:54 PM EST - 05/08/2024 8:57 PM EST Emergency [facility] Emergency [address] [place] [address] Influenza A (Primary Dx) Discharge Disposition: Home or Self Care from Last 3 Months Medical History Medical History Date Comments Hypertension Social History Tobacco Use Types Packs/Day Years Used Date Smoking Tobacco: Former Cigarettes Tobacco Cessation:Counseling Given: Not Answered Alcohol Use Standard Drinks/Week Comments Never 0 (1 standard drink = 0.6 oz pur e alcohol) Comments Unknown Sex and Gender Information Value Date Recorded Sex Assigned at Not on file Legal Sex Female 3:50 AM EST Gender Identity Not on file Sexual Orientation Not on file Obstetrics History Last Filed Vital Signs Vital Sign Reading Time Taken Comments Blood Pressure 129/96 05/08/2024 8:05 PM EST Pulse 98 05/08/2024 8:05 PM EST Temperature 37.7 ??C (99.9 ??F) 05/08/2024 8:05 PM ES T Respiratory Rate 18 05/08/2024 8:05 PM EST Oxygen Saturation 98% 05/08/2024 8:05 PM EST Inhaled Oxygen Concentration - - Weight 83.9 kg (185 lb) 05/08/2024 6:00 PM EST Height 167.6 cm (5' 6 ) 05/08/2024 6:00 PM EST Body Mass Index 29.86 05/08/2024 6:00 PM EST Plan of Treatment Health Maintenance Due Date Last Done Comments Breast Cancer Screening 1975 Cervical Cancer Screening: P ap Smear 1997 Colorectal Cancer Screening: Colonoscopy 05/10/2023 HIV Screening 05/10/2023 Medicare Annual Wellness Visit 05/10/2023 Social Influencers of Health Screening 05/10/2023 COVID-19 Vaccine (3 - 2023-2 5 season) 2023 09/22/2020, 08/21/2020 Influenza Vaccine (#1) 2023 8, 01/09/2018, 02/19/2016 Depression Screening 11/14/2024 11/15/2023 Hypertension/CHF/CAD Annual BMP Blood Test 02/14/2025 02/15/2024, 05/30/2018 DTaP,Tdap,and Td Vaccines (3 - Td or Tdap) 02/29/2028 02/28/2018, 09/09/2016 Cholesterol Screening (Lipid Panel) 02/14/2029 02/15/2024 Hepatitis B Vaccines Completed 08/18/2015, 05/19/2015, 04/17/2015 Hepatitis C Screening Completed 03/08/2018 HIB Vaccines Aged Out No longer eligi [...] on patient's age to complete this topic MMR Vaccines Aged Out No longer eligi ble based on patient's age to complete this topic Meningococcal ACWY Vaccine Aged Out N o longer eligible based on patient's age to complete this topic Meningococcal B Vacine Aged Out No lo nger eligible based on patient's age to complete this topic Pneumococcal Vaccine: Pediatrics (0 to 5 Years) and At-Risk Patients (6 to 64 Years) Aged Out No longer eligible b ased on patient's age to complete this topic RSV Immunization Patients Under 20 months Aged Out No longer eligible b ased on patient's age to complete this topic Varicella Vaccines Aged Out No longer eligible based on patient's age to complete this topic Procedures Procedure Name Priority Date/Time Associated Diagnosis Comments XR CHEST 2 VIEWS STAT 05/08/2024 6:21 PM EST RESPIRATORY VIRUS PANEL MOLECULAR STUDY STAT 05/08/2024 6:05 PM EST from Last 3 Months Results * XR Chest 2 Views (05/08/2024 6:21 PM EST) Anatomical Region Laterality Modality Body Radiographic Danitza ging 05/09/2024 8:27 AM EST Impressions 05/09/2024 8:27 AM EST Normal chest radiographs. -------- FINAL REPORT -------- Dictated By: Pacheco Castro Dictated Date: 05/09/2024 08:27 ET Assigned Physician: Pacheco Castro Reviewed and Electronically Signed By: Pacheco Castro Signed Date: 05/09/2024 08:27 ET Workstation ID: [id number] Transcribed By: Self Edit Transcribed Date: 05/09/2024 08:27 ET Narrative 05/09/2024 8:27 AM EST PROCEDURE: PA and lateral radiographs of the chest. HISTORY: cough. COMPARISON: None. FINDINGS: The heart, mediastinum, lungs, pleural spaces, and bony thorax are normal. Procedure Note Pacheco Castro MD - 05/09/2024 PROCEDURE: PA and lateral radiographs of the chest. HISTORY: cough. COMPARISON: None. FINDINGS: The heart, mediastinum, lungs, pleural spaces, and bony thorax arenormal. IMPRESSION: Normal chest radiographs. -------- FINAL REPORT -------- Dictated By: Pacheco Castro Dictated Date: 05/09/2024 08:27 ET Assigned Physician: Pacheco Castro Reviewed and Electronically Signed By: Pacheco Castro Signed Date: 05/09/2024 08:27 ET Workstation ID: [id number] Transcribed By: Self Edit Transcribed Date: 05/09/2024 08:27 ET Rik Burnett MD IMG XR PROCEDURES Final Result * (ABNORMAL) Respiratory virus panel molecular study (05/08/2024 6:05 PM EST) Pathologist [facility] Adenovirus Detection by PCR Not Detected Not Detected LAB MICROBIOLOGY METHOD 05/08/2024 8:26 PM EST [facility] Influenza B PCR Not Detected Not Detected LAB MICROBIOLOGY METHOD 05/08/2024 8:26 PM EST [facility] Coronavirus 229E Not Detected Not Detected LAB MICROBIOLOGY METHOD 05/08/2024 8:26 PM EST [facility] Coronavirus HKU1 Not Detected Not Detected LAB MICROBIOLOGY METHOD 05/08/2024 8:26 PM [facility] Coronavirus OC43 Not Detected Not Detected LAB MICROBIOLOGY METHOD 05/08/2024 8:26 PM [facility] Coronavirus NL63 Not Detected Not Detected LAB MICROBIOLOGY METHOD 05/08/2024 8:26 PM [facility] Parainfluenza Virus 1 Not Detected Not Detected LAB MICROBIOLOGY METHOD 05/08/2024 8:26 PM [facility] Parainfluenza Virus 2 Not Detected Not Detected LAB MICROBIOLOGY METHOD 05/08/2024 8:26 PM [facility] Parainfluenza Virus 3 Not Detected Not Detected LAB MICROBIOLOGY METHOD 05/08/2024 8:26 PM [facility] Parainfluenza Virus 4 Not Detected Not Detected LAB MICROBIOLOGY METHOD 05/08/2024 8:26 PM [facility] RSV PCR Not Detected Not Detected LAB MICROBIOLOGY METHOD 05/08/2024 8:26 PM [facility] Human Metapneumovirus A and B Not Detected Not Detected LAB MICROBIOLOGY METHOD 05/08/2024 8:26 PM [facility] Rhinovirus/Entero virus Not Detected Not Detected LAB MICROBIOLOGY METHOD 05/08/2024 8:26 PM [facility] Bordetella pertussis Not Detected Not Detected LAB MICROBIOLOGY METHOD 05/08/2024 8:26 PM EST [facility] Bordetella parapertussis Not Detected Not Detected LAB MICROBIOLOGY METHOD 05/08/2024 8:26 PM [facility] Influenza A H1N1 PDM09 Detected(A ) Not Detected LAB MICROBIOLOGY METHOD 05/08/2024 8:26 PM [facility] Mycoplasma pneumo by PCR Not Detected Not Detected LAB MICROBIOLOGY METHOD 05/08/2024 8:26 PM [facility] Chlamydia pneumoniae Not Detected Not Detected LAB MICROBIOLOGY METHOD 05/08/2024 8:26 PM [facility] SARS COV-2 Not Detected Not Detected LAB MICROBIOLOGY METHOD 05/08/2024 8:26 PM [facility] Swab Both anterior nares / Unknown Non-blood Collection / Unknown 05/08/2024 6:05 PM EST 05/08/2024 7:09 PM EST [facility] - 05/08/2024 8:26 PM EST Testing was performed using the [employer] Respiratory Pathogen PCR Assay. All results must be correlated with the clinical findings. Results should not be used as the sole basis for diagnosis. False Negative results may occur from the presence of sequence variants in the region targeted by the assay or the presence of inhibitors. Results may be affected by concurrent antiviral/antimicrobial therapy or levels of organisms that are below the limit of detection. Rik Burnett MD LAB MICROBIOLOGY - GENERAL ORD ERABLES Final Result [facility] [address] [place] [address], from Last 3 Months Insurance [employer] MEDICARE Member Subscriber Plan / Payer (Ef fective 2018-Present) Name:Denise Boyce Relation to Subscriber:Self Name:Denise Boyce Payer ID:[id number] Group ID:[id number] Type:Not on file Address: [place] [address] [place] [id number] Care Teams Reel Fed Printer Relationship Specialty Start Date End Date Waldo Thakkar MD [address] [place] [phone] PCP - General Internal Medicine 05/08/24
--- OUTSIDE RECORDS SUMMARY | 2024-06-26 13:17 | XMS_ITS | Clinical Summary ---
Author Organization [facility] Address [address] [place] [address] Phone Care Team Providers Care Manager Provider Relations Name Role Phone Waldo Cullen MD Primary Care Provider Unav ailable Allergies No known active allergies Medications meclizine (ANTIVERT) 25 MG tablet Take 25 mg by mouth 3 (three) times a day if needed 12/19/2020 Active CLONAZEPAM PO Take 0.5 mg by mouth every night 11/20/2020 Active hydrOXYzine (ATARAX) 25 MG tablet Take 25 mg by mouth 1 (one) time each day 12/19/2020 Active Melatonin 5 MG capsule Take 5 mg by mouth if needed 11/20/2020 Active Rosuvastatin Calcium 10 MG capsule sprinkle Take 10 mg by mouth 1 (one) time each day 12/19/2020 Active SERTRALINE HCL PO Take 150 mg by mouth 1 (one) time each day 11/20/2020 Active loratadine (CLARITIN) 10 MG tablet Take 10 mg by mouth 1 (one) time each day Active diphenhydrAMINE (BENADRYL) 25 MG capsule Take 25 mg by mouth every night Active Multiple Vitamin (multivitamin) tablet Take 1 tablet by mouth 1 (one) time each day Active hydroCHLOROthia zide 25 MG tablet Take 25 mg by mouth 1 (one) time each day 12/15/2021 Active omega-3 (FISH OIL) 1000 MG capsule Take 1,000 mg by mouth in the morning and 1,000 mg at noon and 1,000 mg in the evening. 11/10/2021 Active losartan (COZAAR) 25 MG tablet Take 25 mg by mouth 1 (one) time each day Active Active Problems Problem Noted Date Diagnosed Date Hypertension 02/11/2022 Family History Medical History Relation Comments Glaucoma Father Prostate cancer Father Fibromyalgia Mother Hypertension Mother Hypothyroidism Mother Migraines Mother Osteoarthritis Mother Relation Status Comments Father Mother Social History Tobacco Use Types Packs/Day Years Used Date Smoking Tobacco: Never Smokeless Tobacco: Never Tobacco Cessation:Counseling Given: Not Answered Alcohol Use Standard Drinks/Week Comments Never 0 (1 standard drink = 0.6 oz pur e alcohol) Comments Unknown Sex and Gender Information Value Date Recorded Sex Assigned at Not on file Legal Sex Female 10:02 AM EDT Gender Identity Not on file Sexual Orientation Not on file Last Filed Vital Signs Vital Sign Reading Time Taken Comments Blood Pressure 108/80 02/11/2022 1:23 PM EDT Pulse 101 02/11/2022 1:23 PM EDT Temperature - - Respiratory Rate - - Oxygen Saturation 96% 01/11/2022 2:21 PM EDT Inhaled Oxygen Concentration - - Weight 89.8 kg (198 lb) 02/11/2022 1:23 PM EDT Height - - Body Mass Index - - Plan of Treatment Health Maintenance Due Date Last Done Comments Pneumococcal Vaccine: Pediat rics (0 to 5 Years) and At-Risk Patients (6 to 64 Years) (1 of 2 - PCV) 1982 Hepatitis B Vaccine (1 of 3 - 19+ 3-dose series) 12/02 Influenza Vaccine (#1) 2023 01/25/2018 Insurance [employer] DUAL SNP ([id number]) [employer] D[employer] SNP ([id number]) Care Teams Manager Provider Relations Relationship Specialty Start Date End Date Waldo Cullen MD PCP - General Internal Medicine 10/07/21
--- OUTSIDE RECORDS SUMMARY | 2024-06-26 13:17 | XMS_ITS | Encounter Summary ---
Author Organization [facility] Address [address] [place] [address] [address], [place] [address] Care Team Providers Care Finish Photographer Name Role Phone Waldo Bonner MD Primary Care Provide r Encounter Details Date Type Department Care Team (Late st Contact Info) Description 01/05/2023 Orders Only [facility] [address] [place] [address] [phone] ProviderBaron MD Social History Tobacco Use Types Packs/Day Years [...] Description 07/24/2024 10:30 AM EDT Office Visit [facility] [address] [place] [address] [phone] Waldo Bonner MD [address] [place] [address] [phone] documented as of this encounter Procedures Procedure Name Priority Date/Time Associated Diagnosis Comments HM PAP/HPV Routine 09/22/2020 documented in this encounter Results * Hm Pap Smear (09/22/2020) Historical Provider HEALTH MAINTENANCE Final Result documented in this encounter Visit Diagnoses Not on filedocumented in this encounter Care Teams Finish Photographer Relationship Specialty Start Date End Date Waldo Bonner MD [address] [place] [phone] PCP - General Internal Medicine 03/27/15 documented as of this encounter
--- OUTSIDE RECORDS SUMMARY | 2024-06-26 13:17 | XMS_ITS | Encounter Summary ---
Author Organization [facility] Address [address] [place] [address] [address] [place] [address] Care Team Providers Care Parole Board Member Name Role Phone Waldo Bonner MD Primary Care Provide r Encounter Details Date Type Department Care Team (Late st Contact Info) Description 04/13/2022 Orders Only [facility] [address] [place] [address] [phone] Carmen Mello RN Social History Tobacco Use Types Packs/Day Years Used Date Smoking Tobacco: Never Assessed Comments Unknown Sex and Gender Information Value Date Recorded Sex Assigned at Female 02/08/2022 10:29 AM EDT Legal Sex Female 10:29 AM EDT Gender Identity Female 02/08/2022 10:29 AM EDT Sexual Orientation Straight 02/08/2022 10 :29 AM EDT COVID-19 Exposure Response Date Recorded In the last 10 days, have yo u been in contact with someone who was confirmed or suspected to have Coronavirus/COVID-19? No / Unsure 04/14/2022 9:31 AM EST documented as of this encounter Plan of Treatment Upcoming Encounters Date Type Department Care Team (Late st Contact Info) Description 07/24/2024 10:30 AM EDT Office Visit [facility] [address] [place] [address] [phone] Waldo Bonner MD [address] [place] [address] [phone] documented as of this encounter Visit Diagnoses Not on filedocumented in this encounter Care Teams Parole Board Member Relationship Specialty Start Date End Date Waldo Bonner MD [address] [place] [address] PCP - General Internal Medicine 03/27/15 documented as of this encounter
--- OUTSIDE RECORDS SUMMARY | 2024-06-26 13:17 | XMS_ITS | Encounter Summary ---
Author Organization [facility] Address [address] [place] [address] Phone Care Team Providers Care Precinct Commanding Officer Name Role Phone Waldo Cullen MD Primary Care Provider Unav ailable Encounter Details Date Type Department Care Team (Late st Contact Info) Description 02/11/2022 Documentation Only [facility] [address] [place] [phone] Leatha Alicia Social History Tobacco Use Types Packs/Day Years Used Date Smoking Tobacco: Never Smokeless Tobacco: Never Alcohol Use Standard Drinks/Week Comments Never 0 (1 standard drink = 0.6 oz pur e alcohol) Comments Unknown Sex and Gender Information Value Date Recorded Sex Assigned at Not on file Legal Sex Female 10:02 AM EDT Gender Identity Not on file Sexual Orientation Not on file documented as of this encounter Plan of Treatment Not on file documented as of this encounter Visit Diagnoses Not on filedocumented in this encounter Care Teams Precinct Commanding Officer Relationship Specialty Start Date End Date Waldo Cullen MD PCP - General Internal Medicine 10/07/21 documented as of this encounter
== END 2024-06-26 12:08 | disposition home or self-care (01) ==
LOC: HO.PMCPRC 11:01
PROVIDERS: PCP Internal Medicine; Visit Provider Anesthesiology
DX: M54.16 Radiculopathy, lumbar region (principal)
CPT/HCPCS: 64483

== ENCOUNTER 2024-07-11 12:46 | Outpatient (AMB) | payer OTHER, SELFPAY ==
[2024-07-11 13:03] VITALS: BP 140/90; PULSE 80; O2SAT 98; BMI 30.5
--- NOTE | 2024-07-11 13:03 | MHC.OFFVIS ---
Vital Signs 07/11/24 13:03 Height 5 ft 6 in Weight 189 lb BMI 30.5 BP 140/90 H Blood Pressure Location Rt brachial Position Sitting Pulse 80 Pulse Source Pulse Oximeter Pulse Oximetry (%) 98 Oxygen Delivery Method Room Air Intake Visit Reasons: BILATERAL L4, L5 TFESI Unbundler Required: No Allergies No Known Allergies [No Known Allergies*] Allergy (Verified 07/11/24 13:05) HPI Comments Details: The patient is a 48-year-old female presenting today for follow up, 2 weeks s/p bilateral L4-5 TFESI. Post-treatment, there has been a substantial decrease in pain severity, falling from an intensity of 10/10 to 2/10, which translates to approximately 80% improvement. She continues to feel some pressure, particularly noticeable upon prolonged standing, but reports significant nocturnal relief. The improvement in her symptoms positively influences her sleep, previously severely impaired by the pain. Her management currently involves muscle relaxants at minimal dosing, although she favors Tylenol for pain management on a daily basis. She has arranged a follow-up with her primary care provider to evaluate current medications further. Readministration of injections may become relevant if symptoms recur in the following months. - Onset and Timing: Chronic condition with exacerbation managed by injection two weeks ago - Quality and Character: Initially severe pain, now reduced to pressure, not sharp pain - Primary Location: Lower back - Radiation: Down the leg during procedure - Exacerbating Factors: Standing for extended periods - Relieving Factors: Injection therapy, Tylenol, improved sleep - Interference: Previously interfered with sleep, now improved - Affect: Pain previously limited sleep and caused discomfort; improved mood due to alleviated symptoms - Analgesia: Current pain level 2/10, improved from 10/10; using Tylenol and muscle relaxants as needed - Adverse Effects: None reported from medications - Activities of Daily Living: Able to sleep better; less discomfort while engaging in daily activities - Aberrant Drug Related Behaviors: None reported Prior: Denise is a very pleasant 48-year-old female who presents the office today for evaluation management of her chronic lower back pain. To his evaluated by neuro spine and referred here for consideration of an L4 epidural steroid injection Pain started greater than 1 year ago, denies injury, fall, trauma Endorses midline lower back pain with radiation down the left leg to the foot with associated numbness, burning and tingling Pain is worse with any movement. 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 She continues with home exercise program as instructed on discharge from PT Taking diclofenac with minimal relief. Tylenol as needed with little relief Prescribed muscle relaxer which does not give her much relief. She finds some relief with heat. No improvement with topical medications, icy hot, lidocaine patches. Denies red flag symptoms including loss of bowel, bladder or saddle anesthesia Recent MRI reviewed, results as per below In terms of muscle damage condition is described as pulsing, throbbing, pounding, pinching, cramping, dull, sore, aching, shooting, jumping, radiating, tight, stabbing, burning, hot, sharp, tingling Pain is negatively impacting patient's enjoyment of life, general activity, sleep, ability to perform her activities of daily living, normal functioning Denies current use of anticoagulants Denies implantable devices, pacemaker defibrillator Denies current use of nicotine, tobacco, alcohol or illicit substances Past medical history significant for hypertension, high cholesterol, migraines, anxiety PFSH Medical History Diverticulosis Cerebral aneurysm Mass of left axilla 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, low grade (MORIS 1) HTN (hypertension) Surgical History Hx of colonoscopy H/O brain surgery H/O knee surgery History of hysterectomy History of bilateral tubal ligation H/O LEEP Family History Father Colon cancer Mother HTN (hypertension) Social History (Reviewed 07/11/24 @ 13:07 by Kristen Servin [facility]) Household Members: Family Housing: House Alcohol intake: never Patient Tobacco Use Status: Former Tobacco user service: No Current occupational status: unemployed Sexual orientation: Straight/Heterosexual Gender identity: Female Female Reproductive History Menstrual Age of Menarche: 13 Review of Systems Const Details: - Musculoskeletal: Reports reduced leg pain following injection, stiffness when standing long periods - General: Reports improved sleep and less discomfort during night - Neurological: Denies significant nerve pain following treatment Physical Exam Vital Signs: Last Vital Signs Pulse 80 07/11/24 13:03 BP 140/90 H 07/11/24 13:03 Pulse Ox 98 07/11/24 13:03 Oxygen Delivery Method Room Air 07/11/24 13:03 BMI result Body Mass Index 30.5 General: awake, alert, oriented. Answers questions appropriately. Fully engaged in examination. Skin: warm, dry, intact HEENT: Normocephalic. Hearing intact. Cardiac: External chest normal in appearance. Respiratory: No cough, audible wheezing or stridor. Abdomen: without gross distension. MS: No obvious swelling or deformities. Neurological: Oriented to person, place, time and situation. Thought process intact. No gait abnormalities appreciated. Psychiatric: Appropriate mood and affect. Good judgment and insight. Results Reviewed Results Reviewed: 02/09/24 MRI lumbar spine FINDINGS: CORONAL ALIGNMENT: -Normal. SAGITTAL ALIGNMENT: - Normal lordosis. -There is a 2 mm degenerative appearing retrolisthesis L3 on L4, and L4 on L5. LUMBOSACRAL JUNCTION: -Normal. There are 5 xka-uul-zjiikpn lumbar-type vertebral bodies. VERTEBRAL BODIES/BONE MARROW: -There is no compression deformity. -Edematous Schmorl's node herniation present within the inferior left endplate of L4 (series 6, image 11). -No additional abnormal bone marrow signal side from minimal degenerative endplate edema oriented to the right at L2-3. -No abnormal infiltrating bone marrow signal identified. DISCS: -Mild to moderate loss of disc height and signal L2-3, L3-4, and L4-5. -Minimal loss of disc height and signal L5-S1. -Remainder of the discs are preserved. SPINAL CANAL: -No abnormal developmental findings. CONUS MEDULLARIS: -Terminates at T12-L1. Morphology and signal is normal. INTRADURAL NERVE ROOTS: - Within normal limits. Axial Disc Space Images: T12-L1: No central canal or neural foraminal narrowing. Normal facets. L1-L2: No central canal or neural foraminal narrowing. Normal facets. L2-L3: There is a shallow diffuse disc bulge present, with superimposed right foraminal extrusion of disc material with associated annular fissuring. There is no significant mass effect upon the thecal sac or lateral recesses. Mild bilateral facet arthropathy present. Findings result in mild to moderate right and mild left neural foraminal narrowing. No significant central canal narrowing. L3-L4: Subtle degenerative retrolisthesis. There is a shallow diffuse disc bulge present with bilateral foraminal extrusions of disc material. There is diffuse ventral annular fissuring, as well as posterior annular fissuring. There are mild hypertrophic degenerative facet changes. There is minimal central canal narrowing, minimal bilateral subarticular recess narrowing, and mild to moderate right and mild left neural foraminal narrowing. L4-L5: There is a diffuse bulging disc present with annular fissuring extending throughout the central, lateral, and foraminal zones. There is a superimposed left paracentral and lateral extrusion of disc material. Coupled with mild to moderate hypertrophic facet changes bilaterally, combination of findings is resulting in moderate central canal stenosis, moderate to severe left subarticular recess stenosis with contact and deviation of the traversing left L5 nerve roots. (Series 8, image 22). There is moderate to severe right and moderate left neural foraminal narrowing. There is mass effect and mild impingement of the exiting right L4 nerve root. L5-S1: There is a shallow diffuse disc bulge with a superimposed central extrusion of disc material with annular fissuring. This indents upon the ventral thecal sac, but does not demonstrate mass effect upon nerve roots. There are mild degenerative hypertrophic facet changes. There is minimal central canal narrowing, no significant subarticular recess narrowing, and mild bilateral neural foraminal narrowing. IMAGED SI JOINTS: -Blon-rq-dfauvrmp degenerative arthrosis. PARAVERTEBRAL AND INCLUDED EXTRASPINAL SOFT TISSUES: -Aorta is normal in caliber. -2.8 cm right ovarian cyst. -Otherwise normal. IMPRESSION: 1. Mild to moderate degenerative spondylosis of the lumbar spine, most significant spanning L3-4 through L5-S1, most severe at L4-5. 2. Edematous Schmorl's node herniation the inferior right endplate of L4. 3. No high-grade central canal stenosis. Moderate central stenosis and moderate to severe left lateral recess stenosis at L4-5 due to a left paracentral and lateral disc extrusion. Moderate to severe right neural foraminal impingement at L4-5. 4. Annular fissuring evident at L3-4, L4-5, and L5-S1. 5. See the body of the report for details. Assessment & Plan Assessment & Plan (1) Lumbar radiculopathy: Code(s): M54.16 - Radiculopathy, lumbar region Category: Medical Plan During this visit, I confirmed that the patient's lumbar radiculopathy was managed effectively with recent injection therapy, which resulted in significant alleviation of pain. If symptoms should return after the stipulated three-month period, repeat injection could be considered. Current pharmacological management includes sporadic use of muscle relaxants for acute flare-ups and Tylenol for daily pain management. Ongoing symptom monitoring and functional evaluation will guide future treatment adjustments in coordination with the patient's primary care provider. Our collective focus remains on managing pain effectively while minimizing medication use. I discussed with the patient the effectiveness of the recent lumbar injection therapy, which provided substantial relief from her chronic pain and improved her quality of life significantly. We explored the potential need for a repeat procedure should her symptoms recur, ensuring a minimum three-month interval between treatments. I outlined the benefits of ongoing medication management, primarily involving Tylenol and as-needed muscle relaxants. I addressed concerns regarding more invasive interventions such as surgery, emphasizing the reservations surrounding such measures given her condition's current improvement. The patient agreed to continue with the current management plan, with regular reassessment in the primary care setting, and consented to the proposed course of action. Patient was informed and verbally consented to the use of an ambient scribe for clinic note documentation during this visit. Patient Instructions: - Continue taking Tylenol as needed for pain management. - Use muscle relaxants sparingly for severe flare-ups. - Monitor pain levels, especially when standing for prolonged periods. - Contact our office if pain returns after three months for possible repeat injection. - Plan for routine activity and incorporate rest to manage symptoms proactively. Coding Level of Care Code Est Pt Level 3 (22668) Complex EM visit Add On G2211 Diagnoses Lumbar radiculopathy M54.16
--- OUTSIDE RECORDS SUMMARY | 2024-07-11 15:18 | XMS_ITS | Clinical Summary ---
Author Organization [employer] Address [address] [place] [address] [address] [place] [address] Care Team Providers Care Zanjero Name Role Phone Waldo Bonner MD Primary [...] 2g up to 4x/d as needed for pain/swellin g 100 g 4 Active tiZANidine (Zanaflex) 2 [...] THE MORNING 30 tablet 6 4 Active Active Problems Problem Noted Date Diagnosed [...] L5-S1. Pt referred to Dr. Pires at [facility] Assessment & Plan (11/15/2023 1:04 [...] EIN. He was last seen 02/11/2021 by DIRECTOR OF INFECTION PREVENTION Oncology. She is now only under the care of Dr Kurtz. 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 He was last seen 02/11/2021 by DIRECTOR OF INFECTION PREVENTION Oncology. She is supposed to be now only under the care of Dr Kurtz. Last seen 11/01/2022 Congenital arteriovenous malformation 03/24/2023 03/24/2023 Assessment & Plan (03/24/2023 9:41 AM EST): Pt has a Hx of s subarachnoid bleed due to AVM and aneurysm 08/31/2014 in [place],. She underwent a cerebral angiogram, coil embolization [...] surgical repair Pt under the care of [facility] . Preventative health care 03/24/2023 Assessment & [...] medication compliance, counseled about weight loss. Koffi marshalls 04/13/2022 Mild major depression, single episode 04/17/2015 Assessment & Plan (07/14/2023 10:01 AM EDT): On a regimen of Sertraline 50 mg po daily Pt already seeing a psychotherapist her name is Sincere Oneal Assessment & Plan (03/24/2023 9:41 AM EST): On a regimen of Sertraline 50 mg po daily Pt already seeing a psychotherapist her name is Sincere Oneal Hyperlipidemia 03/28/2015 Assessment & Plan (02/16/2024 10:21 [...] Encounters Date Type Department Care Team Description 07/10/2024 Patient Outreach [facility] [address] [place] [id number] Waldo Bonner MD Pre-visit Planning (SDOH Screening negative and Tobacco screening negative) 07/04/2024 Telephone [facility] [address] [place] [phone] Waldo Bonner MD Chart Prep 05/23/2024 10:20 AM EST Office Visit [facility] [address] [place] [address] Name, MD Jeyson Acute frontal sinusitis, recurrence not specified (Primary Dx); Sore throat; Cough, unspecified type; Myalgia from Last 3 Months Immunizations Name Administration [...] Frequency of Binge Drinking Not on file 0809/2023 Score 0 11/15/2023 Depression Answer Date Recorded Patient Health Questionnaire-9 Score 0 11/15/2023 Patient Health Questionnaire-9 Score 0 11/15/2023 Last PHQ-9: Questionnaire Data Not on file 0 11/15/2023 Housing Stability Answer Date Recorded What is your housing situation today? I have rodney galan 07/10/[address] you li ve. Do you have problems with any of the following? None of the above 07/10/2024 Food Insecurity Answer Date Recorded Within the past 12 months, y ou worried that your food would run out before you got money to buy more: Never True 07/10/2024 Within the past 12 months,th e food you bought just didn't last and you didn't have enough money to get more: Never True 04/2024 Transportation Answer Date Recorded In the past 12 months, has l ack of transportation kept you from medical appts, meetings, work or from getting things needed for daily living? No 07/10/2024 Utilities Answer Date Recorded In the past 12 months, has t he electric, gas, oil or water company threatened to shut off services in your home? No 07/10/2024 Depression Answer Date Recorded Patient Health Questionnaire-2 [...] Description 07/24/2024 10:30 AM EDT Office Visit [facility] [address] [place] [phone] Waldo Bonner MD [address] [place], [place] [phone] Health Maintenance Due Date Last Done Comments [...] Influenza Vaccine (#1) 2023 8, 01/09/2018, 02/19/2016 Alcohol/Substance Use Screening 11/14/2024 11/15/2023 Depression Screening 11/14/2024 11/15/2023, 11/15/19 24 Mammogram 01/02/2025 01/03/2024, 03/12, 12/28/2022, Additional history exists Tobacco Screening 05/23/2025 05/23/2024 SDOH Screening 07/10/2025 07/10/2024 HPV/Cotest 09/22/2025 09/22/2020, 09/22/2020 Pap Smear 09/22/2025 09/22/2020 Zoster Vaccines (1 of 2) 2026 DTaP/Tdap/Td Vaccines (3 - Td or Tdap) 02/29/2028 02/28/2018, 09/09/2016 Colonoscopy 05/12/2028 05/12/2023 Colorectal Cancer Screening 05/12/2028 Lipid Panel 02/14/2029 02/15/2024, 03/11, 05/12/2021, Additional history exists RSV Patients and [...] EST Sore throat Cough, unspecified type Myalgia LIPID PANEL, STANDARD Routine 02/15/2024 9:30 AM [...] AM EST) Influenza B Negative Negative, Indeterminate [facility] Swab 05/23/2024 10:3 1 AM EST us Jeyson Lopez MD POINT OF CARE TEST ENTER/EDIT OR DERABLES Final Result Performing Organization Address [facility]/ZIP Co de Phone Number [facility] [address] [place] [phone] * Influenza A (ID NOW Rapid Molecular) (05/23/2024 10:31 AM EST) Influenza A Negative Negative, Indeterminate [facility] Swab 05/23/2024 10:3 1 AM EST us Jeyson Lopez MD POINT OF CARE TEST ENTER/EDIT OR DERABLES Final Result Performing Organization Address [facility]/ZIP Co de Phone Number [facility] [address] [place] [phone] * POCT Rapid COVID Ag (05/23/2024 10:31 AM EST) [facility] Rapid COVID Ag Negative Swab 05/23/2024 10:3 1 AM EST Jeyson Name POINT OF CARE TEST ENTER/EDIT OR DERABLES Final Result * POCT rapid strep A manually resulted (05/23/2024 10:31 AM EST) [facility] Rapid Strep A Screen Negative Negative, None Detected Swab 05/23/2024 10:3 1 AM EST us Benítez Name POINT OF CARE TEST ENTER/EDIT OR DERABLES Final Result * (ABNORMAL) Lipid Panel, Standard (02/15/2024 9:30 AM EST) [facility] Triglycerides 160(H) <150 mg/dL [facility] Comment:Desirable Triglyceri de: less than 150 mg/dLBorderline High Triglyceride 150-199 mg/dLHigh Triglyceride: 200-499 mg/dLVery High Triglyceride: greater than or equal to 5OO mg/dL Cholesterol 121 <200 mg/dL [facility] Comment:Desirable Cholestero l: less than 200 mg/dLBorderline High Cholesterol: 200-239 mg/dLHigh Cholesterol: greater than 239 mg/dL LDL Cholesterol Calculated 57 <100 mg/dL [facility] Comment:Desirable LDL: less than 100 mg/dLNear Optimal/Above Optimal LDL: 110- 129 mg/dLBorderline High LDL: 130-159 mg/dLHigh LDL: 160-189 mg/dLVery High LDL: greater than or equal to 190 mg/dL HDL Cholesterol 32(L) >40 mg/dL [facility] Comment:Desirable HDL: great er than 40 mg/dL Note: This HDL assay may give artificially low results in patients with liver disease. Blood Venous blood specimen / Unknown 02/15/2024 9:30 AM EST 02/15/2024 11:20 AM EST us Waldo Alicia MD LAB BLOOD ORDERABLES Final Result [facility] [address] [place] [phone] * BI Mammogram Screening Tomosynthesis Bilateral (01/03/2024 12:40 PM EDT) Anatomical Region Laterality Modality Breast Bilateral Mammography 01/03/2024 12:4 0 PM EDT Narrative 01/13/2024 8:16 PM EDT ? [facility] ? [address] ?[place] [id number] ? Mammography Report ? Signed ? Patient: Boyce,Denise ?MR#: [id number] ?? 3 ? : 1975 ?Acct:[id number] ? Age/Sex: 48 / F ?ADM Date: 01/03/24 ? Loc: HO.MAMMO ? Attending Dr: Waldo Thakkar MD ? Ordering Physician: Eder Kurtz MD ?Results: 0Incompl ?? ete: Needs Additional Imaging Evaluation ? Date of Service: 01/03/24 ?Follow Up: Additional Imagi ?? ng ? Procedure(s): MM tomosynthesis screening BI ?? Accession Number(s): [id number] ? cc: Waldo Thakkar MD; Eder Kurtz [...] ??01/13/2024 08:13 PM EDT ? Dictated By: ?Cecilia,Brianda DO ? Signed By: ?<Electronically signed by Brianda Brooks, DO in OV> ? 01/13/24 2013 ? DD/ 1240 ? TD/TT: 01/03/24 1255 ? Clinical Laboratory Assistant: ? Procedure Note Edward Kathleen - 01/13/2024 [facility] [address] [place] [address] Dr. [place], [place] [address] Mammography Report Signed Patient: Kushal Boyce#: [id number] 3 : 1975Acct:[id number] Age/Sex: 48 / FADM Date: 01/03/24 Loc: HO.MAMMO Attending Dr: Waldo Thakkar MD Ordering Physician: Eder Kurtzesults: 0Incompl ete: Needs Additional Imaging Evaluation Date of Service: 01/03/24Follow Up: Additional Imagi ng Procedure(s): MM tomosynthesis screening BI Accession Number(s): [id number] cc: Waldo Thakkar MD; Eder Kurtz MD [...] OV> 01/13/242012 DD/ 1240 TD/TT: 01/03/24 1255 Clinical Laboratory Assistant: [facility] External Provider IMG BI PROCEDURES Edited Result - Final * Hm Colonoscopy (05/12/2023) Colonoscopy Normal Normal Don Isabel MD HEALTH MAINTENANCE Final Result * HPV E6/E7 RFLX NEYDA 16 18/45 (09/22/2020 12:50 PM EDT) HPV mRNA E6/E7 rflx Not Detected Not Detected [facility] Comment: Methodology: Income Tax Analyst-Mediated Amplification This assay detects E6/E7 viral messenger RNA (mRNA) from 14 high-risk HPV types (16,18,31,33,35,39,45,51,52,56,58,59,66,68). The analytical performance characteristics of this assay have been determined by [employer]. The modifications have not been cleared or approved by the FDA. This assay has been validated pursuant to the CLIA regulations and is used for clinical purposes. For additional information, please refer to http://education.[employer]/faq/SEO770z1 (This link if provided for information/ educational purposes only.) THIS TEST WAS PERFORMED AT: [facility] [address] [place] [address],[address] [place], [place] ??[phone] LUIS E JI MD 09/22/2020 12:5 0 PM EDT Eder Kurtz MD HISTORICAL/NON ORDERABLE LABS Fi nal Result [facility] [address] * Hm Pap Smear (09/22/2020) Historical Provider HEALTH MAINTENANCE Final Result from Last 3 Months or Most Recently Relevant to Health Maintenance Insurance [facility] Care Teams Zanjero Relationship Specialty Start Date End Date Waldo Bonner MD [address] [place] [address] PCP - General Internal Medicine 03/27/15
--- OUTSIDE RECORDS SUMMARY | 2024-07-11 15:18 | XMS_ITS | Encounter Summary ---
Author Organization [employer] [facility] Address [address] [place] [phone] Care Team Providers Care Safety Grooving Machine Operator Name Role Phone Waldo Bonner MD Primary Care Provide r Reason for Visit * Reason Comments Med Refill Encounter Details Date Type Department Care Team (Late st Contact Info) Description 01/12/2023 Refill [facility] [address] [place], [place] [phone] Waldo Bonner MD [address] [place] [phone] Primary hypertension Social History Tobacco Use Types [...] Description 07/24/2024 10:30 AM EDT Office Visit [facility] [address] [place], [place] [phone] Waldo Bonner MD [address] [place], [place] [phone] documented as of this encounter Visit Diagnoses Diagnosis Primary hypertension Unspecified essential hypertension documented in this encounter Care Teams Safety Grooving Machine Operator Relationship Specialty Start Date End Date Waldo Bonner MD [address] [place] [phone] PCP - General Internal Medicine 03/27/15 documented as of this encounter
--- OUTSIDE RECORDS SUMMARY | 2024-07-11 15:18 | XMS_ITS | Encounter Summary ---
Author Organization [employer] Address [address] [place] [address] 7 [place] [address] Care Team Providers Care Collar Stitcher Name Role Phone Waldo Bonner MD Primary Care Provide r Reason for Visit * Reason Onset Date Comments appt 06/01/2023 Encounter Details Date Type Department Care Team ([facility] st Contact Info) Description 06/01/2023 Telephone [facility] [address] [place] [address] Jeison Taylor DDS [address] [place] [address] appt Social History Tobacco Use Types Packs/Day [...] Taylor. However,she was on wait list in [facility] since 08/2021 and was checking in on it. Wait list does not [facility] and would like to be scheduled. She is having pain and dental emergency. Informed that she should call in the morning for emergency appt but would like a regular appt scheduled to continue with treatment DR documented in this encounter Plan of Treatment Upcoming Encounters Date Type Department Care Team (Late st Contact Info) Description 07/24/2024 10:30 AM EDT Office Visit [facility] [address] [place] [address] Waldo Bonner MD [address] [place] [address] documented as of this encounter Visit Diagnoses Not on filedocumented in this encounter Additional Health Concerns Assessment Noted Time PHQ-9 Depression Total Score: 2 03/24/20 23 9:39 AM EST documented as of this encounter Care Teams Collar Stitcher Relationship Specialty Start Date End Date Waldo Bonner MD [address] [place] [address] PCP - General Internal Medicine 03/27/15 documented as of this encounter
--- OUTSIDE RECORDS SUMMARY | 2024-07-11 15:18 | XMS_ITS | Encounter Summary ---
Author Organization [employer] Address [address] [place] [address] 7 [place] [address] Care Team Providers Care Biodiesel Product Manager Name Role Phone Waldo Bonner MD Primary Care Provide r Reason for Visit * Reason Comments Pre-visit Planning SDOH Screening negat bereket and Tobacco screening negative Encounter Details Date Type Department Care Team ([facility] st Contact Info) Description 07/10/2024 Patient Outreach [facility] [address] [place] [address] Waldo Bonner MD [address] [place] [address] Pre-visit Planning (SDOH Screening negative and Tobacco screening negative) Social History Tobacco Use Types Packs/Day Years [...] AM EDT documented as of this encounter Progress Notes * Bianka Steven - 07/10/2024 10:13 AM EDT MATTEO Shah placed successful outbound call to patient for pre-visit planning. Patient name and confirmed. Patient confirms appt date and time, and has transportation arrangements. Biggest concern for appointment at this time is no concerns. Patient advised to bring to appointment a photo id and insurance card. Appropriate screenings completed in anticipation of appointment. documented in this encounter Plan of Treatment Upcoming Encounters Date Type Department Care Team (Late st Contact Info) Description 07/24/2024 10:30 AM EDT Office Visit [facility] [address] [place], [place] [phone] Waldo Bonner MD [address] [place], [place] [phone] documented as of this encounter Visit Diagnoses Not on filedocumented in this encounter Additional Health Concerns Assessment Noted Time PHQ-9 Depression Total Score: 0 11/15/19 24 12:56 PM EDT documented as of this encounter Care Teams Biodiesel Product Manager Relationship Specialty Start Date End Date Waldo Bonner MD [address] [place] [address] PCP - General Internal Medicine 03/27/15 documented as of this encounter
--- OUTSIDE RECORDS SUMMARY | 2024-07-11 15:18 | XMS_ITS | Encounter Summary ---
Author Organization [facility] Address [address] [place] [address] 7 [place] [address] Care Team Providers Care Bandoleer Straightener Stamper Name Role Phone Waldo Bonner MD Primary Care Provide r Encounter Details Date Type Department Care Team (Latest Contact Info) Description 11/10/2018 Abstract [facility] CONVERSIONS Dental, Provider, DDS Social History Tobacco [...] EDT Office Visit [facility] [address] [place] [address] Waldo Bonner MD [address] [place] [address] documented as of this encounter Visit Diagnoses Not on filedocumented in this encounter Care Teams Bandoleer Straightener Stamper Relationship Specialty Start Date End Date Waldo Bonner MD [address] [place] [address] PCP - General Internal Medicine 03/27/15 documented as of this encounter
--- OUTSIDE RECORDS SUMMARY | 2024-07-11 15:18 | XMS_ITS | Encounter Summary ---
Author Organization [facility] Address [address] [place] [address] 7 [place] [address] Care Team Providers Care Retail Sales Teammate Name Role Phone Waldo Bonner MD Primary Care Provide r Encounter Details Date Type Department Care Team (Late st Contact Info) Description 04/13/2022 Orders Only [facility] [address] [place] [address] [phone] Carmen Mello RN Social History Tobacco Use [...] Description 07/24/2024 10:30 AM EDT Office Visit [facility] [address] [place] [address] [phone] Waldo Bonner MD [address] [place] [address] [phone] documented as of this encounter Visit Diagnoses Not on filedocumented in this encounter Care Teams Retail Sales Teammate Relationship Specialty Start Date End Date Waldo Bonner MD [address] [place] [address] PCP - General Internal Medicine 03/27/15 documented as of this encounter
--- OUTSIDE RECORDS SUMMARY | 2024-07-11 15:18 | XMS_ITS | Encounter Summary ---
Author Organization [facility] Address [address] [place] [address] [place] [address] Care Team Providers Care Otm Consultant Name Role Phone Waldo Bonner MD Primary Care Provide r Encounter Details Date Type Department Care Team (Late st Contact Info) Description 01/05/2023 Orders Only [facility] MED[facility]INE [address] [place] [address] [phone] ProviderBaron MD Social History Tobacco Use Types [...] Description 07/24/2024 10:30 AM EDT Office Visit [facility] [address] [place] [address] [phone] Waldo Bonner MD [address] [place] [address] [phone] documented as of this encounter Procedures Procedure Name Priority Date/Time Associated Diagnosis Comments HM PAP/HPV Routine 09/22/2020 documented in this encounter Results * Hm Pap Smear (09/22/2020) Historical Provider HEALTH MAINTENANCE Final Result documented in this encounter Visit Diagnoses Not on filedocumented in this encounter Care Teams Otm Consultant Relationship Specialty Start Date End Date Waldo Bonner MD [address] [place] [address] PCP - General Internal Medicine 03/27/15 documented as of this encounter
--- OUTSIDE RECORDS SUMMARY | 2024-07-11 15:18 | XMS_ITS | Encounter Summary ---
Author Organization [facility] Address [address] [place] [address] Phone Care Team Providers Care Machine Deicer Element Winder Name Role Phone Waldo Cullen MD Primary Care Provider Unav ailable Encounter Details Date Type Department Care Team (Late st Contact Info) Description 02/11/2022 Documentation Only [facility] [address] [place] [phone] Leatha Alicia Social History Tobacco Use Types [...] on filedocumented in this encounter Care Teams Machine Deicer Element Winder Relationship Specialty Start Date End Date Waldo Cullen MD PCP - General Internal Medicine 10/07/21 documented as of this encounter
--- OUTSIDE RECORDS SUMMARY | 2024-07-11 15:18 | XMS_ITS | Clinical Summary ---
Author Organization [facility] Address [address] [place] [address] Phone Care Team Providers Care Box Feeder Name Role Phone Waldo Thakkar MD Primary Care Provi donavan Allergies No known active allergies Encounters Date Type Department Care Team Description 05/08/2024 7:54 PM EST - 05/08/2024 8:57 PM EST Emergency [facility] Emergency [address] [place] [address] Influenza A (Primary Dx) Discharge [...] Signed Date: 05/09/2024 08:27 ET Workstation ID: [id number] Transcribed By: Self Edit Transcribed Date: 05/09/2024 [...] Signed Date: 05/09/2024 08:27 ET Workstation ID: [id number] Transcribed By: Self Edit Transcribed Date: 05/09/2024 08:27 ET Rik Burnett MD IMG XR PROCEDURES Final Result * (ABNORMAL) Respiratory virus panel molecular study (05/08/2024 6:05 PM EST) Pathologist [facility] Adenovirus Detection by PCR Not Detected Not Detected LAB MICROBIOLOGY METHOD 05/08/2024 8:26 PM EST [facility] Influenza B PCR Not Detected Not Detected LAB MICROBIOLOGY METHOD 05/08/2024 8:26 PM EST [facility] Coronavirus 229E Not Detected Not Detected LAB MICROBIOLOGY METHOD 05/08/2024 8:26 PM EST [facility] Coronavirus HKU1 Not Detected Not Detected LAB MICROBIOLOGY METHOD 05/08/2024 8:26 PM [facility] Coronavirus OC43 Not Detected Not Detected LAB MICROBIOLOGY METHOD 05/08/2024 8:26 PM [facility] Coronavirus NL63 Not Detected Not Detected LAB MICROBIOLOGY METHOD 05/08/2024 8:26 PM [facility] Parainfluenza Virus 1 Not Detected Not Detected LAB MICROBIOLOGY METHOD 05/08/2024 8:26 PM [facility] Parainfluenza Virus 2 Not Detected Not Detected LAB MICROBIOLOGY METHOD 05/08/2024 8:26 PM [facility] Parainfluenza Virus 3 Not Detected Not Detected LAB MICROBIOLOGY METHOD 05/08/2024 8:26 PM [facility] Parainfluenza Virus 4 Not Detected Not Detected LAB MICROBIOLOGY METHOD 05/08/2024 8:26 PM [facility] RSV PCR Not Detected Not Detected LAB MICROBIOLOGY METHOD 05/08/2024 8:26 PM [facility] Human Metapneumovirus A and B Not Detected Not Detected LAB MICROBIOLOGY METHOD 05/08/2024 8:26 PM [facility] Rhinovirus/Entero virus Not Detected Not Detected LAB MICROBIOLOGY METHOD 05/08/2024 8:26 PM [facility] Bordetella pertussis Not Detected Not Detected LAB MICROBIOLOGY METHOD 05/08/2024 8:26 PM EST [facility] Bordetella parapertussis Not Detected Not Detected LAB MICROBIOLOGY METHOD 05/08/2024 8:26 PM [facility] Influenza A H1N1 PDM09 Detected(A ) Not Detected LAB MICROBIOLOGY METHOD 05/08/2024 8:26 PM [facility] Mycoplasma pneumo by PCR Not Detected Not Detected LAB MICROBIOLOGY METHOD 05/08/2024 8:26 PM [facility] Chlamydia pneumoniae Not Detected Not Detected LAB MICROBIOLOGY METHOD 05/08/2024 8:26 PM [facility] SARS COV-2 Not Detected Not Detected LAB MICROBIOLOGY METHOD 05/08/2024 8:26 PM [facility] Swab Both anterior nares / Unknown Non-blood Collection / Unknown 05/08/2024 6:05 PM EST 05/08/2024 7:09 PM EST [facility] - 05/08/2024 8:26 PM EST Testing was performed using the [employer] Respiratory Pathogen PCR Assay. All results must [...] MICROBIOLOGY - GENERAL ORD ERABLES Final Result [facility] [address] [place] [address], from Last 3 Months Insurance [employer] MEDICARE Member Subscriber Plan / Payer (Ef fective 2018-Present) Name:Denise Boyce Relation to Subscriber:Self Name:Denise Boyce Payer ID:[id number] Group ID:[id number] Type:Not on file Address: [address] [phone] Care Teams Box Feeder Relationship Specialty Start Date End Date Waldo Thakkar MD [address] [place] [address] PCP - General Internal Medicine 05/08/24
--- OUTSIDE RECORDS SUMMARY | 2024-07-11 15:18 | XMS_ITS | Encounter Summary ---
Author Organization [facility] Address [address] [place] [address] Care Team Providers Care Loan Counselor Name Role Phone Waldo Bonner MD Primary Care Provide r Reason for Visit * Reason Comments Med Refill Encounter Details Date Type Department Care Team (Late st Contact Info) Description 03/18/2022 Refill [facility] [address] [place] [phone] Nicole Lyles FNP [address] [place] [address] [place] [address] Social History Tobacco Use Types Packs/Day Years [...] Description 07/24/2024 10:30 AM EDT Office Visit [facility] [address] [place] [address] Waldo Bonner MD [address] [place] [address] documented as of this encounter Visit Diagnoses Not on filedocumented in this encounter Care Teams Loan Counselor Relationship Specialty Start Date End Date Waldo Bonner MD [address] [place] [address] PCP - General Internal Medicine 03/27/15 documented as of this encounter
--- OUTSIDE RECORDS SUMMARY | 2024-07-11 15:18 | XMS_ITS | Clinical Summary ---
Author Organization [facility] Address [address] [place] [address] Phone Care Team Providers Care Large Engine Assembler Name Role Phone Waldo Cullen MD Primary [...] - 19+ 3-dose series) 12/02 Influenza Vaccine (Season Ended) 2024 01/26/20 18 Insurance [facility] ONE CARE DUAL SNP ([id number]) [facility] ONE CARE DUAL SNP ([id number]) Care Teams Large Engine Assembler Relationship Specialty Start Date End Date Waldo Cullen MD PCP - General Internal Medicine 10/07/21
== END 2024-07-11 13:18 | disposition home or self-care (01) ==
LOC: HO.PMC 12:47
PROVIDERS: PCP Internal Medicine; Visit Provider Registered Nurse Emergency
DX: M54.16 Radiculopathy, lumbar region (principal)
CPT/HCPCS: 99213; G2211

== ENCOUNTER → 2024-07-11 12:46 | Outpatient (BNVA) | payer OTHER, SELFPAY | PROVIDERS: PCP Internal Medicine; Visit Provider Registered Nurse Emergency | DX: M54.16 Radiculopathy, lumbar region (principal) | CPT/HCPCS: 99212 ==

== ENCOUNTER 2024-07-24 11:07 | Outpatient (REF) | payer OTHER, SELFPAY ==
--- OUTSIDE RECORDS SUMMARY | 2024-07-24 13:45 | XMS_ITS | Clinical Summary ---
Author Organization [facility] Address [address] [place] [address] Phone Care Team Providers Care Echo Technician Name Role Phone Waldo Cullen MD Primary [...] Health Maintenance Due Date Last Done Comments Hepatitis B Vaccine (1 of 3 - 19+ 3-dose series) 12/02 Pneumococcal Vaccine: Peds ( 0 to 5 Years) and At-Risk Patients (6 to 49 Years) (1 of 2 - PCV) 12/03/1995 Influenza Vaccine (Season Ended) 2024 01/26/20 18 Insurance [facility] One Care Dual SNP ([id number]) [facility] One Care Dual SNP ([id number]) Care Teams Echo Technician Relationship Specialty Start Date End Date Waldo Cullen MD PCP - General Internal Medicine 10/07/21
--- OUTSIDE RECORDS SUMMARY | 2024-07-24 13:45 | XMS_ITS | Encounter Summary ---
Author Organization [facility] Address [address] [place] [address] Phone Care Team Providers Care Aws Architect Name Role Phone Waldo Cullen MD Primary Care Provider Unav ailable Encounter Details Date Type Department Care Team (Late st Contact Info) Description 02/11/2022 Documentation Only [facility] [address] [place] [phone] Leatha Alicia Social History Tobacco Use Types [...] on filedocumented in this encounter Care Teams Aws Architect Relationship Specialty Start Date End Date Waldo Cullen MD PCP - General Internal Medicine 10/07/21 documented as of this encounter
--- OUTSIDE RECORDS SUMMARY | 2024-07-24 13:45 | XMS_ITS | Clinical Summary ---
Author Organization [facility] Address [address] [place] [address] Phone Care Team Providers Care Dermatology Specialist Name Role Phone Waldo Thakkar MD Primary Care Provi donavan Allergies No known active allergies Encounters Date Type Department Care Team Description 05/08/2024 7:54 PM EST - 05/08/2024 8:57 PM EST Emergency [facility] Emergency [address] [place] [address] Influenza A (Primary Dx) Discharge [...] - 2023-2 5 season) 2023 09/22/2020, 08/21/2020 Depression Screening 11/14/2024 11/15/2023 Influenza Vaccine (Season Ended) 2024 01/25/2018, 01/09/2018, 02/19/2016 Hypertension/CHF/CAD Annual BMP Blood Test 02/14/2025 02/15/2024, [...] age to complete this topic Meningococcal B Vaccine Aged Out No l onger eligible based on patient's age to complete [...] Signed Date: 05/09/2024 08:27 ET Workstation ID: [id number] Transcribed By: Self Edit Transcribed Date: 05/09/2024 [...] Signed Date: 05/09/2024 08:27 ET Workstation ID: [id number] Transcribed By: Self Edit Transcribed Date: 05/09/2024 08:27 ET Rik Burnett MD IMG XR PROCEDURES Final Result * (ABNORMAL) Respiratory virus panel molecular study (05/08/2024 6:05 PM EST) [facility] Adenovirus Detection by PCR Not Detected Not Detected LAB MICROBIOLOGY METHOD 05/08/2024 8:26 PM EST [facility] Influenza B PCR Not Detected Not Detected LAB MICROBIOLOGY METHOD 05/08/2024 8:26 PM [facility] Coronavirus 229E Not Detected Not Detected LAB MICROBIOLOGY METHOD 05/08/2024 8:26 PM EST [facility] Coronavirus HKU1 Not Detected Not Detected LAB MICROBIOLOGY METHOD 05/08/2024 8:26 PM [facility] Coronavirus OC43 Not Detected Not Detected LAB MICROBIOLOGY METHOD 05/08/2024 8:26 PM [facility] Coronavirus NL63 Not Detected Not Detected LAB MICROBIOLOGY METHOD 05/08/2024 8:26 PM [facility] Parainfluenza Virus 1 Not Detected Not Detected LAB MICROBIOLOGY METHOD 05/08/2024 8:26 PM EST [facility] Parainfluenza Virus 2 Not Detected Not Detected LAB MICROBIOLOGY METHOD 05/08/2024 8:26 PM [facility] Parainfluenza Virus 3 Not Detected Not Detected LAB MICROBIOLOGY METHOD 05/08/2024 8:26 PM [facility] Parainfluenza Virus 4 Not Detected Not Detected LAB MICROBIOLOGY METHOD 05/08/2024 8:26 PM [facility] RSV PCR Not Detected Not Detected LAB MICROBIOLOGY METHOD 05/08/2024 8:26 PM [facility] Human Metapneumovirus A and B Not Detected Not Detected LAB MICROBIOLOGY METHOD 05/08/2024 8:26 PM [facility] Rhinovirus/Entero virus Not Detected Not Detected LAB MICROBIOLOGY METHOD 05/08/2024 8:26 PM [facility] Bordetella pertussis Not Detected Not Detected LAB MICROBIOLOGY METHOD 05/08/2024 8:26 PM [facility] Bordetella parapertussis Not Detected Not Detected LAB MICROBIOLOGY METHOD 05/08/2024 8:26 PM EST [facility] Influenza A H1N1 PDM09 Detected(A ) Not Detected LAB MICROBIOLOGY METHOD 05/08/2024 8:26 PM [facility] Mycoplasma pneumo by PCR Not Detected Not Detected LAB MICROBIOLOGY METHOD 05/08/2024 8:26 PM [facility] Chlamydia pneumoniae Not Detected Not Detected LAB MICROBIOLOGY METHOD 05/08/2024 8:26 PM [facility] SARS COV-2 Not Detected Not Detected LAB MICROBIOLOGY METHOD 05/08/2024 8:26 PM [facility] Swab Both anterior nares / Unknown Non-blood Collection / Unknown 05/08/2024 6:05 PM EST 05/08/2024 7:[address] [facility] - 05/08/2024 8:26 PM EST Testing was performed using the [employer] Respiratory Pathogen PCR Assay. All results must [...] MICROBIOLOGY - GENERAL ORD ERABLES Final Result [facility] [address] [place] [address], from Last 3 Months Insurance [employer] MEDICARE Member Subscriber Plan / Payer (Ef fective 2018-Present) Name:Denise Boyce Relation to Subscriber:Self Name:Denise Boyce Payer ID:[id number] Group ID:[id number] Type:Not on file Address: [address] [phone] Care Teams Dermatology Specialist Relationship Specialty Start Date End Date Waldo Thakkar MD [address] [place] [address] PCP - General Internal Medicine 05/08/24
[2024-07-24 13:54] LABS: Anion Gap 12 (12-20); Blood Urea Nitrogen 14 mg/dL (9-16); Blood Urea Nitrogen 15 mg/dL (9-16); Calcium 10.1 mg/dL (8.4-10.2); Carbon Dioxide 31 mmol/L (22-29); Chloride 100 mmol/L (96-108); Estimated Glomerular Filt Rate > 60; Glucose Random 99 mg/dL (60-115); Potassium 3.7 mmol/L (3.3-5.1); Sodium 139 mmol/L (135-145)
== END 2024-07-24 11:08 | disposition home or self-care (01) ==
LOC: HO.HHCL 11:07
PROVIDERS: Nurse Practitioner Family; Visit Provider Internal Medicine
DX: I10 Essential (primary) hypertension (principal); R10.11 Right upper quadrant pain
CPT/HCPCS: 36415; 80048; 84520

== ENCOUNTER 2024-08-06 07:22 | Outpatient (REF) | payer OTHER, SELFPAY ==
--- NOTE | ~2024-08-06 | FL_ITS ---
EXAMINATION: XR BARIUM SWALLOW CLINICAL INFORMATION: Dysphagia COMPARISON: None available. TECHNIQUE: Routine barium swallow was performed with thick,, saltine cracker coated barium food and barium tablet in upright view. Thin barium was administered in prone lying position. FINDINGS: Following oral administration of thick barium there is normal propagation of bolus from the oral cavity through the pharynx, esophagus into stomach without obstruction narrowing. On oral administration of barium coated saltine cracker there is normal oral mastication and propagation of food from the oral cavity, pharynx into stomach. On oral administration of barium tablet there is spontaneous passage of the tablet from the oral cavity through the pharynx, esophagus into stomach. Oral administration of thin barium in prone lying position there is normal propagation of bolus from the oral cavity, esophagus into stomach. There is normal distention of the barium . No gastroesophageal reflux or hiatal hernia seen FLUOROSCOPY TIME: 2 minutes 13 seconds DOSE AREA PRODUCT: 1482 uGy-m2 (microgray-meter squared) FL/FL barium swallow IMPRESSION: Unremarkable barium swallow Electronically signed by: Ivan Campa MD 08/06/2024 04:55 PM EDT
--- OUTSIDE RECORDS SUMMARY | 2024-08-06 07:26 | XMS_ITS | Encounter Summary ---
Author Organization [facility] Address [address] [place] [address] [address] [place] [address] Care Team Providers Care Physician Anesthesiologist Name Role Phone Waldo Bonner MD Primary Care Provide r Encounter Details Date Type Department Care Team (Late st Contact Info) Description 04/13/2022 Orders Only [facility] [address] [place] [address] Carmen Mello RN Social History Tobacco Use [...] on filedocumented in this encounter Care Teams Physician Anesthesiologist Relationship Specialty Start Date End Date Waldo Bonner MD [address] [place], [place] [phone] PCP - General Internal Medicine 03/27/15 documented as of this encounter
--- OUTSIDE RECORDS SUMMARY | 2024-08-06 07:26 | XMS_ITS | Encounter Summary ---
Author Organization [employer] [facility] Address [address] [place] [address] [address] [address] Care Team Providers Care Child Care Teacher Name Role Phone Waldo Bonner MD Primary Care Provide r Encounter Details Date Type Department Care Team (Latest Contact Info) Description 11/10/2018 Abstract [facility] CONVERSIONS Dental, Provider, DDS Social History Tobacco [...] on filedocumented in this encounter Care Teams Child Care Teacher Relationship Specialty Start Date End Date Waldo Bonner MD [address] [place] [address] PCP - General Internal Medicine 03/27/15 documented as of this encounter
--- OUTSIDE RECORDS SUMMARY | 2024-08-06 07:26 | XMS_ITS | Clinical Summary ---
Author Organization [facility] Address [address] [place] [address] Phone Care Team Providers Care Hospital Secretary Name Role Phone Waldo Cullen MD Primary [...] Vaccine (Season Ended) 2024 01/26/20 18 Insurance [facility] One Care Dual SNP ([id number]) [facility] One Care Dual SNP ([id number]) Care Teams Hospital Secretary Relationship Specialty Start Date End Date Waldo Cullen MD PCP - General Internal Medicine 10/07/21
--- OUTSIDE RECORDS SUMMARY | 2024-08-06 07:26 | XMS_ITS | Encounter Summary ---
Author Organization [facility] Address [address] [place] [address] Phone Care Team Providers Care Sports Anchor Name Role Phone Waldo Cullen MD Primary Care Provider Unav ailable Encounter Details Date Type Department Care Team (Late st Contact Info) Description 02/11/2022 Documentation Only [facility] [address] [place] [phone] Leatha Alicia Social History Tobacco Use Types [...] on filedocumented in this encounter Care Teams Sports Anchor Relationship Specialty Start Date End Date Waldo Cullen MD PCP - General Internal Medicine 10/07/21 documented as of this encounter
--- OUTSIDE RECORDS SUMMARY | 2024-08-06 07:26 | XMS_ITS | Encounter Summary ---
Author Organization [employer] Address [address] [place] [address] 7 [place] [address] Care Team Providers Care Mixer Driver Name Role Phone Waldo Bonner MD Primary Care Provide r Reason for Visit * Reason Onset Date Comments appt 06/01/2023 Encounter Details Date Type Department Care Team ([facility] st Contact Info) Description 06/01/2023 Telephone [facility] ADULT DENTAL [address] [place] [address] Jeison Taylor, TREVA [address] [place] [address] appt Social History Tobacco Use Types Packs/Day [...] Taylor. However,she was on wait list in [facility] since 08/2021 and was checking in on it. Wait list does not transfer to [facility] and would like to be scheduled. She is having pain and dental emergency. Informed that she should call in the morning for emergency appt but would like a regular appt scheduled to continue with treatment documented in this encounter Plan of Treatment Not on file documented as of this encounter Visit Diagnoses Not on filedocumented in this encounter Additional Health Concerns Assessment Noted Time PHQ-9 Depression Total Score: 2 03/24/20 23 9:39 AM EST documented as of this encounter Care Teams Mixer Driver Relationship Specialty Start Date End Date Waldo Bonner MD [address] [place] [address] PCP - General Internal Medicine 03/27/15 documented as of this encounter
--- OUTSIDE RECORDS SUMMARY | 2024-08-06 07:26 | XMS_ITS | Clinical Summary ---
Author Organization [employer] Address [address] [place] [address] 7[address] [place] [address] Care Team Providers Care Report Programmer Name Role Phone Waldo Bonner MD Primary [...] Active Problems Problem Noted Date Diagnosed Date Right ovarian cyst 07/24/2024 Assessment & Plan (07/24/2024 10:38 AM EDT): MRI LS spine 01/2024 showed 2.8 cm right ovarian cyst. Plan: Obtain Pelvic US Skin lesion of left leg 07/24/2024 Assessment & Plan (07/24/2024 11:05 AM EDT): Pt reports a skin lesion left leg for > 6 months, that it is not going away and recently bled. On exam, small round superficial red lesion approx 2 mm Plan: Dermatology referral for biopsy Nephrolithiasis 11/15/2023 Assessment & Plan (11/15/2023 12:52 PM EDT): Seen by Urology 08/11/2023 Low back pain radiating to left leg 11/15/2023 Assessment & Plan (07/24/2024 10:46 AM EDT): Pt here for a follow up with previous c/o low back pain that radiates to left [...] L5-S1. Pt referred to Dr. Pires at [facility]. She was seen 02/20/2024 His impression was that there was evidence of left L4 compression on MRI he believe this to be the likely cause of her radicular pain. To what extent this herniation is contributing to her back pain is unknown. 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 He extensively discussed the spectrum treatment options from a surgical standpoint, and the patient did not wish to pursue a surgical intervention for this issue at this time. She does not feel that she could deal with the potential down time having no help to care for her son at this time. She has never tried cortisone injections so he encouraged her to attempt this, and he subsequently referred her to [facility] where she has been receiving steroid injections with good results. Last seen 07/11/2024 Assessment & Plan (02/16/2024 10:29 AM EST): [...] L5-S1. Pt referred to Dr. Pires at [facility] Assessment & Plan (11/15/2023 1:04 PM EDT): Pt with c/o new onset low back pain that radiates to left leg Exam suggestive of muscle spasm Plan: Topical NSAIDS, Muscle relaxant, PT eval Plain films Lumbar spine Routine physical examination 07/14/2023 Assessment & Plan (07/14/2023 9:42 AM EDT): Physical exam within normal limits BMI 31.0-31.9,adult 07/14/2023 Assessment & Plan (07/24/2024 10:49 AM EDT): Patient has been counseled and educated about diet and exercise. Personal goal of weight loss discussedPatient has comorbidity of:Patient has comorbidity of: HTN Assessment & Plan (07/14/2023 9:44 AM EDT): [...] EIN. He was last seen 02/11/2021 by [facility]. She is now only under the care of Dr Kurtz. 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 He was last seen 02/11/2021 by [facility]. She is supposed to be now only under the care of Dr Kurtz. 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 She underwent a cerebral angiogram, coil embolization [...] surgical repair [facility] . [facility] health care 03/24/2023 Assessment & Plan (02/16/2024 [...] negative Essential hypertension 04/13/2022 Assessment & Plan (07/24/2024 10:59 AM EDT): Patient with Hypertension BP elevated. Pt reports BP at home systolic is never > 130. She checks it regularly. I have asked that she brings her monitor next visit. Most recent electrolytes, Bun and Creatinine done on: Lab Results Component Value Date NA 140 02/15/2024 NA 137 03/24/2023 K 3.0 (L) 02/15/2024 K 4.0 03/24/2023 CL 101 02/15/2024 CL 102 03/24/2023 BUN 13 02/15/2024 BUN 8 (L) 03/24/2023 CREATININE 0.71 02/15/2024 CREATININE 0.65 03/24/2023 K-dur sent to her pharmacy, will repeat K level She is on a regimen of Hctz 12.5 mg po daily and Losartan 100 mg po daily, Plan: Repeat BMP. Pt was referred to Nephrology in the past for a renal consultation given labile HTN, She was lost for follow up f/u with me in 4 months patient advised to adhere to a low sodium diet, encouraged about medication compliance, counseled about weight loss. Assessment & Plan (02/16/2024 10:20 AM EST): [...] medication compliance, counseled about weight loss. Koffi cruris 04/13/2022 Mild major depression, single episode 04/17/2015 Assessment & Plan (07/24/2024 10:49 AM EDT): On a regimen of Sertraline 50 mg po daily Pt already seeing a psychotherapist her name is Ingagwendolynhenok Jm Assessment & Plan (07/14/2023 10:01 AM EDT): [...] Encounters Date Type Department Care Team Description 07/27/2024 Orders Only [facility] [address] [place] [phone] Waldo Bonner MD Right ovarian cyst (Primary Dx) 07/26/2024 Telephone [facility] [employer] [address] [place] [address] Waldo Bonner MD US PELVIS ORDER 07/24/2024 10:30 AM EDT Office Visit [facility] [address] [place] [phone] Waldo Bonner MD Essential hypertension (Primary Dx); Right ovarian cyst; Low back pain radiating to left leg; Mild major depression, single episode (CMS/HCC); BMI 31.0-31.9,adult; Dietary counseling; Exercise counseling; Skin lesion of left leg 07/24/2024 Orders Only GENERIC EXTERNAL DATA DEPARTMENT Provider, Generic External Data 07/24/2024 Travel 07/10/2024 Patient Outreach [facility] [address] [place] [phone] Waldo Bonner MD Pre-visit Planning (SDOH Screening negative and Tobacco screening negative) 07/04/[address] [phone] Waldo Bonner MD Chart Prep 05/23/2024 10:20 AM EST Office Visit [facility] [address] [place] [phone] Jeyson Lopez MD Acute frontal sinusitis, recurrence not specified (Primary [...] Sign Reading Time Taken Comments Blood Pressure 140/96 07/24/2024 10:45 AM EDT manual BP check Pulse 75 07/24/2024 10:31 AM EDT Temperature 36.1 ??C (96.9 ??F) 07/24/2024 1 0:31 AM EDT Respiratory Rate 20 07/24/2024 10:3 1 AM EDT Oxygen Saturation 98% 07/24/2024 10: 31 AM EDT Inhaled Oxygen Concentration - - Weight 84.9 kg (187 lb 3.2 oz) 07/24/2024 10:31 AM EDT Height 167.6 cm (5' 6 ) 07/24/2024 10:3 1 AM EDT Body Mass Index 30.21 07/24/2024 10:31 AM EDT Plan of Treatment Health Maintenance Due Date [...] 01/02/2025 01/03/2024, 03/12, 12/28/2022, Additional history exists SDOH Screening 07/24/2025 07/24/2024 Tobacco Screening 07/24/2025 07/24/2024 HPV/Cotest 09/22/2025 09/22/2020, 09/22/2020 Pap Smear 09/22/2025 [...] Procedure Name Priority Date/Time Associated Diagnosis Comments UREA NITROGEN (BUN) Routine 07/24/2024 1 1:10 AM EDT BASIC METABOLIC PANEL Routine 07/24/2024 11:10 AM EDT Essential hypertension POCT RAPID STREP A Routine 05/23/2024 10 [...] Recently Relevant to Health Maintenance Results * BUN (Blood Urea Nitrogen) (07/24/2024 11:10 AM EDT) Urea Nitrogen (BUN) 15 9 - 16 mg/dL [facility] 07/24/2024 11:1 0 AM EDT 07/24/2024 1:22 PM EDT us Generic External Data Provider LAB BLOOD ORDERAB LES Final Result [facility] [address] [place] [phone] * (ABNORMAL) Basic Metabolic Panel (07/24/2024 11:10 AM EDT) [facility] Sodium 139 135 - 145 mmol/L [facility] Potassium 3.7 3.3 - 5.1 mmol/L [facility] Chloride 100 96 - 108 mmol/L [facility] Carbon Dioxide 31(H) 22 - 29 mmol/L [facility] Anion Gap 12 12 - 20 [facility] Urea Nitrogen (BUN) 14 9 - 16 mg/dL [facility] Creatinine, Serum 0.74 0.5 - 1.4 mg/dL [facility] Estimated Glomerular Filt Rate >60 [facility] Comment:Chronic Kidney Disea se: Estimated GFR < 60 mL/min/1.91l2Iawtjg Kidney Disease: Estimated GFR < 15 mL/min/1.73m2 Glucose 99 60 - 115 mg/dL [facility] Calcium 10.1 8.4 - 10.2 mg/dL [facility] Blood Venous blood specimen / Unknown 07/24/2024 11:10 AM EDT 07/24/2024 1:22 PM EDT Waldo Alicia MD LAB BLOOD ORDERABLES Final Result Performing Organization Address [facility]/ZIP Co de Phone Number [facility] [address] [place] [phone] * Influenza B (ID NOW Rapid Molecular) (05/23/2024 10:31 AM EST) [facility] Influenza B Negative Negative, Indeterminate [facility] Swab 05/23/2024 10:3 1 AM EST Jeyson Lopez MD POINT OF CARE TEST ENTER/EDIT OR DERABLES Final Result Performing Organization Address [facility] Co de Phone Number [facility] [address] [place] [phone] * Influenza A (ID NOW Rapid Molecular) (05/23/2024 10:31 AM EST) [facility] Influenza A Negative Negative, Indeterminate [facility] Swab 05/23/2024 10:3 1 AM EST us Jeyson Lopez MD POINT OF CARE TEST ENTER/EDIT OR DERABLES Final Result [facility] [address] [place] [phone] * POCT Rapid COVID Ag (05/23/2024 10:31 AM EST) [facility] Rapid COVID Ag Negative Swab 05/23/2024 10:3 1 AM EST us Jeyson Lopez MD POINT OF CARE TEST ENTER/EDIT OR DERABLES Final Result * POCT rapid strep A manually resulted (05/23/2024 10:31 AM EST) [facility] Rapid Strep A Screen Negative Negative, None Detected Swab 05/23/2024 10:3 1 AM EST us Jeyson Lopez MD POINT OF CARE TEST ENTER/EDIT OR DERABLES Final Result * (ABNORMAL) Lipid Panel, Standard (02/15/2024 9:30 AM EST) [facility] Triglycerides 160(H) <150 mg/dL [facility] Comment:Desirable Triglyceri de: less than 150 mg/dLBorderline High Triglyceride 150-199 mg/dLHigh Triglyceride: 200-499 mg/dLVery High Triglyceride: greater than or equal to 5OO mg/dL Cholesterol 121 <200 mg/dL [facility] Comment:Desirable Cholestero l: less than 200 mg/dLBorderline High Cholesterol: 200-239 mg/dLHigh Cholesterol: greater than 239 mg/dL LDL Cholesterol Calculated 57 <100 mg/dL [facility] Comment:Desirable LDL: less than 100 mg/dLNear Optimal/Above Optimal LDL: 110- 129 mg/dLBorderline High LDL: 130-159 mg/dLHigh LDL: 160-189 mg/dLVery High LDL: greater than or equal to 190 mg/dL HDL Cholesterol 32(L) >40 mg/dL [facility] Comment:Desirable HDL: great er than 40 mg/dL Note: This HDL assay may give artificially low results in patients with liver disease. Blood Venous blood specimen / Unknown 02/15/2024 9:30 AM EST 02/15/2024 11:20 AM EST us Waldo Alicia MD LAB BLOOD ORDERABLES Final Result [facility] [address] [place] [phone] [phone] * BI Mammogram Screening Tomosynthesis Bilateral (01/03/2024 12:40 PM EDT) Anatomical Region Laterality Modality Breast Bilateral Mammography 01/03/2024 12:4 0 PM EDT Narrative 01/13/2024 8:16 PM EDT ? [facility] ? [address] ?[place] [address] ? Mammography Report ? Signed ? Patient: Boyce,Denise ?MR#: [id number] ?? 3 ? : 1975 ?Acct:[id number] ? Age/Sex: 48 / F ?ADM Date: 01/03/24 ? Loc: HO.MAMMO ? Attending Dr: Waldo Thakkar MD ? Ordering Physician: Eder Kurtz MD ?Results: 0Incompl ?? ete: Needs Additional Imaging Evaluation ? Date of Service: 01/03/24 ?Follow Up: Additional Imagi ?? ng ? Procedure(s): MM tomosynthesis screening BI ?? Accession Number(s): [id number] ? cc: Waldo Thakkar MD; Eder Kurtz [...] ??Brianda Brooks DO ??01/13/2024 08:13 PM EDT ?? RP ? Dictated By: ?Brianda Brooks DO ? Signed By: ?<Electronically signed by Brianda Brooks, DO in OV> ? 01/13/242012 ? DD/ 1240 ? TD/TT: 01/03/24 1255 ? Psychiatric Orderly: ? Procedure Note Donotuseinterpreter, Image - 01/13/2024 [facility] [address] [place], [place] [address] Mammography Report Signed Patient: Kushal Boyce#: [id number] 3 : 1975Acct:[id number] Age/Sex: 48 / FADM Date: 01/03/24 Loc: HO.MAMMO Attending Dr: Waldo Thakkar MD Ordering Physician: Eder Kurtzesults: 0Incompl ete: Needs Additional Imaging Evaluation Date of Service: 01/03/24Follow Up: Additional Imagi ng Procedure(s): MM tomosynthesis screening BI Accession Number(s): [id number] cc: Waldo Thakkar MD; Eder Kurtz MD [...] OV> 01/13/242012 DD/ 1240 TD/TT: 01/03/24 1255 Psychiatric Orderly: [facility] External Provider IMG BI PROCEDURES Edited Result - Final * Hm Colonoscopy (05/12/2023) Colonoscopy Normal Normal Don Isabel MD HEALTH MAINTENANCE Final Result * HPV E6/E7 RFLX NEYDA 16 18/45 (09/22/2020 12:50 PM EDT) HPV mRNA E6/E7 rflx Not Detected Not Detected [facility] Comment: Methodology: Senior Market Intelligence Consultant-Mediated Amplification This assay detects E6/E7 viral messenger RNA (mRNA) from 14 high-risk HPV types (16,18,31,33,35,39,45,51,52,56,58,59,66,68). The analytical performance characteristics of this assay have been determined by [employer]. The modifications have not been cleared or approved by the FDA. This assay has been validated pursuant to the CLIA regulations and is used for clinical purposes. For additional information, please refer to http://education.[employer]/faq/BNQ785d5 (This link if provided for information/ educational purposes only.) THIS TEST WAS PERFORMED AT: [facility] [address] [place] [address] [address] [place], [place] ??[phone] LUIS E JI MD 09/22/2020 12:5 0 PM EDT Edre Kurtz MD HISTORICAL/NON ORDERABLE LABS Fi nal Result [facility] [address] * Hm Pap Smear (09/22/2020) Historical Provider HEALTH MAINTENANCE Final Result from Last 3 Months or Most Recently Relevant to Health Maintenance Insurance CCA ONE CARE < 65 CCA ONE CARE < 65 [facility] Care Teams Report Programmer Relationship Specialty Start Date End Date Waldo Bonner MD [address] [place] [phone] PCP - General Internal Medicine 03/27/15
--- OUTSIDE RECORDS SUMMARY | 2024-08-06 07:26 | XMS_ITS | Encounter Summary ---
Author Organization [employer] [facility] Address [address] [place] [address] [place] [address] Care Team Providers Care Clinical Trainer Name Role Phone Waldo Bonner MD Primary Care Provide r Reason for Visit * Reason Comments Med Refill Encounter Details Date Type Department Care Team ([facility] st Contact Info) Description 03/18/2022 Refill [facility] [address] [place] [address] Nicole Lyles FNP [address] [place] [address] Dept [place] [address] Social History Tobacco Use Types Packs/Day Years [...] on filedocumented in this encounter Care Teams Clinical Trainer Relationship Specialty Start Date End Date Waldo Bonner MD [address] [place] [address] PCP - General Internal Medicine 03/27/15 documented as of this encounter
--- OUTSIDE RECORDS SUMMARY | 2024-08-06 07:26 | XMS_ITS | Encounter Summary ---
Author Organization [facility] Address [address] [place] [phone] Care Team Providers Care Fireproof Door Maker Name Role Phone Waldo Bonner MD Primary Care Provide r Encounter Details Date Type Department Care Team (Late st Contact Info) Description 01/05/2023 Orders Only [facility] [address] [place], [place] [phone] Provider, MD Baron Social History Tobacco Use Types Packs/Day Years [...] on filedocumented in this encounter Care Teams Fireproof Door Maker Relationship Specialty Start Date End Date Waldo Bonner MD [address] [place], [place] [phone] PCP - General Internal Medicine 03/27/15 documented as of this encounter
--- OUTSIDE RECORDS SUMMARY | 2024-08-06 07:26 | XMS_ITS | Clinical Summary ---
Author Organization [facility] Address [address] [place] [address] Phone Care Team Providers Care Grain Mixer Name Role Phone Waldo Thakkar MD Primary Care Provi donavan Allergies No known active allergies Encounters Date Type Department Care Team Description 05/08/2024 7:54 PM EST - 05/08/2024 8:[address] [facility] Emergency [address] [place] [address] Influenza A (Primary Dx) Discharge [...] Signed Date: 05/09/2024 08:27 ET Workstation ID: [id number] Transcribed By: Self Edit Transcribed Date: 05/09/2024 [...] Signed Date: 05/09/2024 08:27 ET Workstation ID: [id number] Transcribed By: Self Edit Transcribed Date: 05/09/2024 08:27 ET Rik Burnett MD IMG XR PROCEDURES Final Result * (ABNORMAL) Respiratory virus panel molecular study (05/08/2024 6:05 PM EST) [facility] Adenovirus Detection by PCR Not Detected Not Detected LAB MICROBIOLOGY METHOD 05/08/2024 8:[address] [facility] Influenza B PCR Not Detected Not Detected LAB MICROBIOLOGY METHOD 05/08/2024 8:26 PM [facility] Coronavirus 229E Not Detected Not Detected LAB MICROBIOLOGY METHOD 05/08/2024 8:[address] [facility] Coronavirus HKU1 Not Detected Not Detected LAB MICROBIOLOGY METHOD 05/08/2024 8:26 PM [facility] Coronavirus OC43 Not Detected Not Detected LAB MICROBIOLOGY METHOD 05/08/2024 8:26 PM [facility] Coronavirus NL63 Not Detected Not Detected LAB MICROBIOLOGY METHOD 05/08/2024 8:26 PM [facility] Parainfluenza Virus 1 Not Detected Not Detected LAB MICROBIOLOGY METHOD 05/08/2024 8:[address] [facility] Parainfluenza Virus 2 Not Detected Not Detected LAB MICROBIOLOGY METHOD 05/08/2024 8:26 PM [facility] Parainfluenza Virus 3 Not Detected Not Detected LAB MICROBIOLOGY METHOD 05/08/2024 8:26 PM [facility] Parainfluenza Virus 4 Not Detected Not Detected LAB MICROBIOLOGY METHOD 05/08/2024 8:26 PM [facility] RSV PCR Not Detected Not Detected LAB MICROBIOLOGY METHOD 05/08/2024 8:26 PM [facility] Human Metapneumovirus A and B Not Detected Not Detected LAB MICROBIOLOGY METHOD 05/08/2024 8:26 PM [facility] Rhinovirus/Entero virus Not Detected Not Detected LAB MICROBIOLOGY METHOD 05/08/2024 8:26 PM [facility] Bordetella pertussis Not Detected Not Detected LAB MICROBIOLOGY METHOD 05/08/2024 8:26 PM [facility] Bordetella parapertussis Not Detected Not Detected LAB MICROBIOLOGY METHOD 05/08/2024 8:[address] [facility] Influenza A H1N1 PDM09 Detected(A ) Not Detected LAB MICROBIOLOGY METHOD 05/08/2024 8:26 PM [facility] Mycoplasma pneumo by PCR Not Detected Not Detected LAB MICROBIOLOGY METHOD 05/08/2024 8:26 PM [facility] Chlamydia pneumoniae Not Detected Not Detected LAB MICROBIOLOGY METHOD 05/08/2024 8:26 PM [facility] SARS COV-2 Not Detected Not Detected LAB MICROBIOLOGY METHOD 05/08/2024 8:26 PM [facility] Swab Both anterior nares / Unknown Non-blood Collection / Unknown 05/08/2024 6:05 PM EST 05/08/2024 7:[address] [facility] - 05/08/2024 8:26 PM EST Testing was performed using the [employer] Respiratory Pathogen PCR Assay. All results must [...] MICROBIOLOGY - GENERAL ORD ERABLES Final Result [facility] [address] [place] [address], from Last 3 Months Insurance [employer] MEDICARE Member Subscriber Plan / Payer (Ef fective 2018-Present) Name:Denise Boyce Relation to Subscriber:Self Name:Denise Boyce Payer ID:[id number] Group ID:[id number] Type:Not on file Address: [address] [place] [phone] Care Teams Grain Mixer Relationship Specialty Start Date End Date Waldo Thakkar MD [address] [place] [phone] PCP - General Internal Medicine 05/08/24
--- OUTSIDE RECORDS SUMMARY | 2024-08-06 07:26 | XMS_ITS | Encounter Summary ---
Author Organization [employer] [facility] Address [address] [place] [address] [address], [place] [address] Care Team Providers Care Fashion Illustrator Name Role Phone Waldo Bonner MD Primary Care Provide r Reason for Visit * Reason Comments Med Refill Encounter Details Date Type Department Care Team ([facility] st Contact Info) Description 01/12/2023 Refill [facility] [address] [place], [place] [phone] Waldo Bonner MD [address] [place] [address] Primary hypertension Social History Tobacco Use Types [...] hypertension documented in this encounter Care Teams Fashion Illustrator Relationship Specialty Start Date End Date Waldo Bonner MD [address] [place], [place] [phone] PCP - General Internal Medicine 03/27/15 documented as of this encounter
== END 2024-08-06 07:23 | disposition home or self-care (01) ==
LOC: HO.XRAY 07:22
PROVIDERS: PCP Internal Medicine; Visit Provider Otolaryngology
DX: R13.10 Dysphagia, unspecified (principal)
CPT/HCPCS: 74220

== ENCOUNTER → 2024-08-06 07:26 | Outpatient (BNV) | payer OTHER, SELFPAY | PROVIDERS: PCP Internal Medicine; Visit Provider Radiology Diagnostic Radiology | DX: R13.10 Dysphagia, unspecified (principal) | CPT/HCPCS: 74220 ==

== ENCOUNTER 2024-08-23 13:38 | Outpatient (REF) | payer OTHER, SELFPAY ==
--- NOTE | ~2024-08-23 | US_ITS ---
EXAMINATION: US PELVIS TRANSABDOMINAL AND TRANSVAGINAL HISTORY: MRI LS spine 01/2024 showed 2.8 cm right ovarian cyst. COMPARISON: Correlation is made with an MRI of the lumbar spine dated 02/09/2024. TECHNIQUE: Transabdominal and endovaginal real-time 2D soliz-scale ultrasound was performed. FINDINGS: Uterus: The uterus is surgically absent. Right ovary: The right ovary measures 3.6 x 2.8 x 2.2 cm. There are multiple right ovarian cysts, the largest of which measures 2.3 x 1.8 x 2.2 cm. There is a 2.1 x 1.6 x 1.8 cm complex appearing cysts with internal septations and echoes. Left ovary: The left ovary measures 3.6 x 2.1 x 1.8 cm. There is a 1.8 cm left ovarian cyst. Pelvic fluid: none. US/US pelvic and transvaginal IMPRESSION: Multiple bilateral ovarian cysts are noted including a 2.1 cm complex appearing right-sided cyst. Follow-up is recommended to document resolution. Electronically signed by: Dennis Mohan MD 08/23/2024 03:01 PM EDT
--- OUTSIDE RECORDS SUMMARY | 2024-08-23 14:14 | XMS_ITS | Clinical Summary ---
Author Organization [facility] Address [address] [place] [address] Phone Care Team Providers Care Audio Production Instructor Name Role Phone Waldo Thakkar MD Primary Care Provi donavan Allergies No known active allergies Medical History Medical History Date Comments Hypertension [...] on patient's age to complete this topic [place] [address] [place] [address] MEDICARE Member Subscriber Plan / Payer (Ef fective 2018-Present) Name:Cherelle Boyceh M Relation to Subscriber:Self Name:Denise Boyce Payer ID:[id number] Group ID:[id number] Type:Not on file Address: [place] [address] [address] [place] [phone] Care Teams Audio Production Instructor Relationship Specialty Start Date End Date Waldo Thakkar MD [address] [place] [phone] PCP - General Internal Medicine 05/08/24
--- OUTSIDE RECORDS SUMMARY | 2024-08-23 14:14 | XMS_ITS | Encounter Summary ---
Author Organization [facility] Address [address] [place] [address] Phone Care Team Providers Care Barkeep Name Role Phone Waldo Cullen MD Primary Care Provider Unav ailable Encounter Details Date Type Department Care Team (Late st Contact Info) Description 02/11/2022 Documentation Only [facility] [address] [place] [phone] Leatha Alicia Social History Tobacco Use Types [...] on filedocumented in this encounter Care Teams Barkeep Relationship Specialty Start Date End Date Waldo Cullen MD PCP - General Internal Medicine 10/07/21 documented as of this encounter
--- OUTSIDE RECORDS SUMMARY | 2024-08-23 14:14 | XMS_ITS | Clinical Summary ---
Author Organization [employer] Address [address] [place] [address] 7[address] [place] [address] Care Team Providers Care Licensed Mass Real Estate Appraiser Name Role Phone Waldo Bonner MD Primary Care Provide r Allergies No known active allergies Medications Blood Pressure Monitor kit 07/01/19 22 Active cholecalciferol (Vitamin D-3) 25 MCG (1000 UT) tablet Take 1 tablet by mouth 1 (one) time each day. 07/15/19 17 Active meclizine (Antivert) 25 MG tablet Take 1 tablet by mouth every 8 (eight) hours. 08/23/19 20 Active omega-3 (Fish Oil) 1000 MG capsule Take 1 capsule by mouth 3 times daily. 07/01/19 22 Active Diclofenac Sodium (Voltaren) 1 % gelIndications:Low back pain radiating to left leg Apply 2g up to 4x/d as needed for pain/swelli ng 100 g 11/15/19 24 Active tiZANidine (Zanaflex) 2 MG tabletIndications: Low back pain radiating to left leg Take 1 tablet (2 mg) by mouth every 8 (eight) hours if needed for muscle spasms. 30 tablet 11/15/19 24 Active potassium chloride CR (Klor-Con M10) 10 MEQ ER tabletIndications: Hypokalemia Take one tablet daily x 5 days. Do not crush or chew. 5 tablet 02/15/20 24 Active hydroCHLOROthiazid e (HYDRODiuril) 25 MG tabletIndications: Primary hypertension TAKE 1 TABLET BY MOUTH EVERY DAY IN THE MORNING 30 tablet 6 03/27/20 24 Active rosuvastatin (Crestor) 20 MG tabletIndications: Mixed hyperlipidemia TAKE 1 TABLET BY MOUTH EVERY DAY IN THE MORNING 30 tablet 6 03/27/20 24 Active losartan (Cozaar) 100 MG tabletIndications: Primary hypertension TAKE 1 TABLET BY MOUTH EVERY DAY 30 tablet 1 08/17/19 25 Active losartan (Cozaar) 100 MG tabletIndications: Primary hypertension Take 1 tablet (100 mg) by mouth Once per day. 30 tablet 6 11/15/19 24 025 Discontinued Active Problems Problem Noted Date Diagnosed Date [...] L5-S1. Pt referred to Dr. Pires at [facility] spine center. She was seen 02/20/2024 His [...] this, and he subsequently referred her to [facility] where she has been receiving [...] L5-S1. Pt referred to Dr. Pires at [facility] spine center Assessment & Plan (11/15/2023 1:04 [...] EIN. He was last seen 02/11/2021 by FL[facility] TEST DATA ACQUISITION TECHNICIAN Oncology. She is now only under the care of Dr Kurtz. 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 He was last seen 02/11/2021 by FLIGHT TEST DATA ACQUISITION TECHNICIAN Oncology. She is supposed to be now only under the care of Dr Kurtz. 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 She underwent a cerebral angiogram, coil embolization [...] surgical repair Pt under the care of [facility] . [facility] health care 03/24/2023 Assessment & Plan (02/16/2024 [...] name is Sincere Oneal Assessment & Plan (07/14/2023 10:01 AM EDT): [...] Encounters Date Type Department Care Team Description 08/15/2024 Refill [facility] [address] [place] [phone] Waldo Bonner MD Primary hypertension 08/06/2024 Orders Only [facility] External Provider, [facility] 07/27/2024 Orders Only [facility] [address] [place] [phone] Waldo Bonner MD Right ovarian cyst (Primary Dx) 07/26/2024 Telephone [facility] [address] [place] [phone] Waldo Bonner MD US PELVIS ORDER 07/24/2024 10:30 AM EDT Office Visit [facility] [address] [place] [phone] Waldo Bonner MD Essential hypertension (Primary Dx); Right ovarian cyst; Low back pain radiating to left leg; Mild major depression, single episode (CMS/HCC); BMI 31.0-31.9,adult; Dietary counseling; Exercise counseling; Skin lesion of left leg 07/24/2024 Orders Only [facility] EXTERNAL DATA DEPARTMENT Provider, Generic External Data 07/24/2024 Travel 07/10/2024 Patient Outreach [facility] [address] [place] [phone] Waldo Bonner MD Pre-visit Planning (SDOH Screening negative and Tobacco screening negative) 07/04/2024 Telephone [facility] [address] [place] [phone] Waldo Bonner MD Chart Prep from Last 3 Months Immunizations Immunization Administration Dates Next Due Hep B, adult [...] Procedure Name Priority Date/Time Associated Diagnosis Comments FL ESOPHAGUS BARIUM SWALLOW Routine 08/06/2024 7:26 AM EDT UREA NITROGEN (BUN) Routine 07/24/2024 1 1:10 AM EDT BASIC METABOLIC PANEL Routine 07/24/2024 11:10 AM EDT Essential hypertension LIPID PANEL, STANDARD Routine 02/15/2024 9:30 AM [...] Recently Relevant to Health Maintenance Results * FL Esophagus Barium Swallow (08/06/2024 7:26 AM EDT) Anatomical Region Laterality Modality Head, Neck Radiographic Danitza ging 08/06/2024 7:26 AM EDT Narrative 08/06/2024 4:58 PM EDT ? [facility] ?[address] ?[place] [address] ? Fluoroscopy Report ? Signed ? Patient: Boyce,Denise ?MR#: [id number] ?? 3 ? : 1975 ?Acct:[id number] ? Age/Sex: 48 / F ?ADM Date: 08/06/ ? Loc: HO.XRAY ? Attending Dr: Tio Wade ? Ordering Physician: Tio Wade ?? Date of Service: 08/06/24 ?? Procedure(s): FL barium swallow ?? Accession Number(s): [id number] ? cc: Waldo Thakkar MD; Tio Wade ? EXAMINATION: ?? XR BARIUM SWALLOW ? CLINICAL INFORMATION: ?? Dysphagia ? COMPARISON: ?? None available. ? TECHNIQUE: ?? Routine barium swallow was performed with thick,, saltine cracker ?? coated barium food and barium tablet in upright view. ?? Thin barium was ?? administered in prone lying position. ? FINDINGS: ?? Following oral administration of thick barium there is normal ?? propagation of bolus from the oral cavity through the pharynx, ?? esophagus into stomach without obstruction narrowing. On oral ?? administration of barium coated saltine cracker there is normal oral ?? mastication and propagation of food from the oral cavity, pharynx into ?? stomach. On oral administration of barium tablet there is spontaneous ?? passage of the tablet from the oral cavity through the pharynx, ?? esophagus into stomach. ? Oral administration of thin barium in prone lying position there is ?? normal propagation of bolus from the oral cavity, esophagus into ?? stomach. There is normal distention of the barium . No gastroesophageal ?? reflux or hiatal hernia seen FLUOROSCOPY TIME: ?? 2 minutes 13 seconds ? DOSE AREA PRODUCT: ?? 1482 uGy-m2 (microgray-meter squared) ? FL/FL barium swallow ?? IMPRESSION: ?? Unremarkable barium swallow ? Electronically signed by: ??Ivan Campa MD ??08/06/2024 04:55 PM EDT RP ? Dictated By: ?Ivan Campa MD ? Signed By: ?<Electronically signed by Ivan Campa MD in OV> ?08/06/24 1655 ? DD/ 0726 ? TD/TT: 08/06/24 0751 ? Collateral Specialist: MSM ? Procedure Note Frannie, Edward - 08/06/2024 [place] [address] Fluoroscopy Report Signed Patient: Kushal Boyce#: [id number] 3 : 1975Acct:[id number] Age/Sex: 48 / FADM Date: 08/06/24 Loc: [place] Attending Dr: Tio Wade Ordering Physician: Tio Wade Date of Service: 08/06/24 Procedure(s): FL barium swallow Accession Number(s): [id number] cc: Waldo Thakkar MD; Tio Wade EXAMINATION: XR BARIUM SWALLOW CLINICAL INFORMATION: Dysphagia COMPARISON: None available. TECHNIQUE: Routine barium swallow was performed with thick,, saltine cracker coated barium food and barium tablet in upright view. Thin barium was administered in prone lying position. FINDINGS: Following oral administration of thick barium there is normal propagation of bolus from the oral cavity through the pharynx, esophagus into stomach without obstruction narrowing. On oral administration of barium coated saltine cracker there is normal oral mastication and propagation of food from the oral cavity, pharynx into stomach. On oral administration of barium tablet there is spontaneous passage of the tablet from the oral cavity through the pharynx, esophagus into stomach. Oral administration of thin barium in prone lying position there is normal propagation of bolus from the oral cavity, esophagus into stomach. There is normal distention of the barium . No gastroesophageal reflux or hiatal hernia seen FLUOROSCOPY TIME: 2 minutes 13 seconds DOSE AREA PRODUCT: 1482 uGy-m2 (microgray-meter squared) FL/FL barium swallow IMPRESSION: Unremarkable barium swallow Electronically signed by: Ivan Campa MD 08/06/2024 04:55 PM EDT RP Dictated By: Ivan Campa MD Signed By: <Electronically signed by Ivan Campa MD in OV> 08/06/24 1655 DD/ 0726 TD/TT: 08/06/24 0751 Collateral Specialist: SHANA [facility] External Provider IMG FLU OROSCOPY PROCEDURES Final Result * BUN (Blood Urea Nitrogen) (07/24/2024 11:10 AM EDT) Urea Nitrogen (BUN) 15 9 - 16 mg/dL [facility] 07/24/2024 11:1 0 AM EDT 07/24/2024 1:22 PM EDT Generic External Data Provider LAB BLOOD ORDERAB LES Final Result [facility] [address] [place] [phone] * (ABNORMAL) Basic Metabolic Panel (07/24/2024 11:10 AM EDT) Sodium 139 135 - 145 mmol/L [facility] Potassium 3.7 3.3 - 5.1 mmol/L [facility] Chloride 100 96 - 108 mmol/L [facility] Carbon Dioxide 31(H) 22 - 29 mmol/L [facility] Anion Gap 12 12 - 20 [facility] Urea Nitrogen (BUN) 14 9 - 16 mg/dL [facility] Creatinine, Serum 0.74 0.5 - 1.4 mg/dL [facility] Estimated Glomerular Filt Rate >60 [facility] Comment:Chronic Kidney Disea se: Estimated GFR < 60 mL/min/1.33p8Lujfnz Kidney Disease: Estimated GFR < 15 mL/min/1.73m2 Glucose 99 60 - 115 mg/dL [facility] Calcium 10.1 8.4 - 10.2 mg/dL [facility] Blood Venous blood specimen / Unknown 07/24/2024 11:10 AM EDT 07/24/2024 1:22 PM EDT us Waldo Alicia MD LAB BLOOD ORDERABLES Final Result Performing Organization Address City/State/[facility] Co de Phone Number [facility] [address] [place] [phone] * (ABNORMAL) Lipid Panel, Standard (02/15/2024 9:30 AM EST) Triglycerides 160(H) <150 mg/dL [facility] Comment:Desirable Triglyceri de: less than 150 mg/dLBorderline High Triglyceride 150-199 mg/dLHigh Triglyceride: 200-499 mg/dLVery High Triglyceride: greater than or equal to 5OO mg/dL Cholesterol 121 <200 mg/dL [facility] Comment:Desirable Cholestero l: less than 200 mg/dLBorderline High Cholesterol: 200-239 mg/dLHigh Cholesterol: greater than 239 mg/dL LDL Cholesterol Calculated 57 <100 mg/dL [facility] Comment:Desirable LDL: less than 100 mg/dLNear Optimal/Above Optimal LDL: 110- 129 mg/dLBorderline High LDL: 130-159 mg/dLHigh LDL: 160-189 mg/dLVery High LDL: greater than or equal to 190 mg/dL HDL Cholesterol 32(L) >40 mg/dL [facility] Comment:Desirable HDL: great er than 40 mg/dL Note: This HDL assay may give artificially low results in patients with liver disease. Blood Venous blood specimen / Unknown 02/15/2024 9:30 AM EST 02/15/2024 11:20 AM EST us Waldo Alicia MD LAB BLOOD ORDERABLES Final Result [facility] [address] [place] [address] [phone] * BI Mammogram Screening Tomosynthesis Bilateral (01/03/2024 12:40 PM EDT) Anatomical Region Laterality Modality Breast Bilateral Mammography 01/03/2024 12:4 0 PM EDT Narrative 01/13/2024 8:16 PM EDT ? [facility] [place] ? [address] ?[place] [address] ? Mammography Report ? Signed ? Patient: Boyce,Denise ?MR#: [id number] ?? 3 ? : 1975 ?Acct:[id number] ? Age/Sex: 48 / F ?ADM Date: /24/24 ? Loc: HO.MAMMO ? Attending Dr: Waldo Thakkar MD ? Ordering Physician: Eder Kurtz MD ?Results: 0Incompl ?? ete: Needs Additional Imaging Evaluation ? Date of Service: 01/03/24 ?Follow Up: Additional Imagi ?? ng ? Procedure(s): MM tomosynthesis screening BI ?? Accession Number(s): [id number] ? cc: Waldo Thakkar MD; Eder Kurtz [...] DD/ 1240 ? TD/TT: 01/03/24 1255 ? Collateral Specialist: ? Procedure Note Donarvinter, Image - [facility] [address] [place] [address] Mammography Report Signed Patient: Kushal Boyce#: [id number] 3 : 1975Acct:[id number] Age/Sex: 48 / FADM Date: 01/03/24 Loc: HO.MAMMO Attending Dr: Waldo Thakkar MD Ordering Physician: Eder Kurtzults: 0Incompl ete: Needs Additional Imaging Evaluation Date of Service: 01/03/24Follow Up: Additional Imagi ng Procedure(s): MM tomosynthesis screening BI Accession Number(s): [id number] cc: Waldo Thakkar MD; Eder Kurtz MD [...] OV> 01/13/242012 DD/ 1240 TD/TT: 01/03/24 1255 Collateral Specialist: [facility] External Provider IMG BI PROCEDURES Edited Result - Final * Hm Colonoscopy (05/12/2023) Colonoscopy Normal Normal Don Isabel MD HEALTH MAINTENANCE Final Result * HPV E6/E7 RFLX NEYDA 16 18/45 (09/22/2020 12:50 PM EDT) HPV mRNA E6/E7 rflx Not Detected Not Detected [facility] Comment: Methodology: Plant Operations Coordinator-Mediated Amplification This assay detects E6/E7 viral messenger RNA (mRNA) from 14 high-risk HPV types (16,18,31,33,35,39,45,51,52,56,58,59,66,68). The analytical performance characteristics of this assay have been determined by [facility]. The modifications have not been cleared or approved by the FDA. This assay has been validated pursuant to the CLIA regulations and is used for clinical purposes. For additional information, please refer to http://education.[employer].EnerG2/faq/RWY026q8 (This link if provided for information/ educational purposes only.) THIS TEST WAS PERFORMED AT: [facility] [address] [place] [address] [address]LO[address] [place], [place] ??[phone] LUIS E JI MD 09/22/2020 12:5 0 PM EDT Eder Kurtz MD HISTORICAL/NON ORDERABLE LABS Fi nal Result [facility] [address] [place] [address], * Pap Smear (09/22/2020) Historical Provider HEALTH MAINTENANCE Final Result from Last 3 Months or Most Recently Relevant to Health Maintenance Insurance [facility] ONE CARE < 65 [employer] ONE CARE < 65 [facility] Care Teams Licensed Mass Real Estate Appraiser Relationship Specialty Start Date End Date Waldo Bonner MD [address] [place] [phone] PCP - General Internal Medicine 03/27/15
--- OUTSIDE RECORDS SUMMARY | 2024-08-23 14:14 | XMS_ITS | Clinical Summary ---
Author Organization [facility] Address [address] [place] [phone] Phone Care Team Providers Care Senior It Recruiter Name Role Phone Waldo Cullen MD Primary [...] Vaccine (Season Ended) 2024 01/26/20 18 Insurance [facility] One Care Dual SNP ([id number]) [facility] One Care Dual SNP ([id number]) Care Teams Senior It Recruiter Relationship Specialty Start Date End Date Waldo Cullen MD PCP - General Internal Medicine 10/07/21
--- OUTSIDE RECORDS SUMMARY | 2024-08-23 14:15 | XMS_ITS | Encounter Summary ---
Author Organization [employer] Address [address] [place] [address] 7 [place] [address] Care Team Providers Care Microfilm Duplicating Unit Supervisor Name Role Phone Waldo Bonner MD Primary Care Provide r Encounter Details Date Type Department Care Team (Latest Contact Info) Description 11/10/2018 Abstract [facility] CONVERSIONS Dental, Provider, DDS Social History [...] on filedocumented in this encounter Care Teams Microfilm Duplicating Unit Supervisor Relationship Specialty Start Date End Date Waldo Bonner MD [address] [place] [phone] PCP - General Internal Medicine 03/27/15 documented as of this encounter
--- OUTSIDE RECORDS SUMMARY | 2024-08-23 14:15 | XMS_ITS | Encounter Summary ---
Author Organization [employer] Address [address] [place] [address] 7 [place] [address] Care Team Providers Care Drum Drier Name Role Phone Waldo Bonner MD Primary Care Provide r Reason for Visit * Reason Onset Date Comments appt 06/01/2023 Encounter Details Date Type Department Care Team ([facility] st Contact Info) Description 06/01/[address] [facility] [address] [place] [address] Jeison Taylor DDS [address] [place] [address] appt Social History Tobacco Use Types Packs/Day [...] Taylor. However,she was on wait list in [facility] since 08/2021 and was checking in on it. Wait list does not transfer to [facility] and would like to be scheduled. She [...] documented as of this encounter Care Teams Drum Drier Relationship Specialty Start Date End Date Waldo Bonner MD [address] [place] [address] PCP - General Internal Medicine 03/27/15 documented as of this encounter
--- OUTSIDE RECORDS SUMMARY | 2024-08-23 14:15 | XMS_ITS | Encounter Summary ---
Author Organization [employer] Address [address] [place] [address] 7 [place] [address] Care Team Providers Care Correctional Facility Nurse Name Role Phone Waldo Bonner MD Primary Care Provide r Encounter Details Date Type Department Care Team ([facility] st Contact Info) Description 04/13/[address] [facility] [address] [place] [address] Carmen Mello, RN Social History Tobacco Use Types Packs/Day [...] on filedocumented in this encounter Care Teams Correctional Facility Nurse Relationship Specialty Start Date End Date Waldo Bonner MD [address] [place], [place] [phone] PCP - General Internal Medicine 03/27/15 documented as of this encounter
--- OUTSIDE RECORDS SUMMARY | 2024-08-23 14:15 | XMS_ITS | Encounter Summary ---
Author Organization [employer] Address [address] [place] [address] [address] [place] [address] Care Team Providers Care Command And Control Name Role Phone Waldo Bonner MD Primary Care Provide r Reason for Visit * Reason Comments Med Refill Encounter Details Date Type Department Care Team ([facility] st Contact Info) Description 01/12/[address] [facility] [address] [place], [place] [phone] Waldo Bonner MD [address] [place] [address] Primary hypertension Social History Tobacco Use Types [...] hypertension documented in this encounter Care Teams Command And Control Relationship Specialty Start Date End Date Waldo Bonner MD [address] [place] [address] PCP - General Internal Medicine 03/27/15 documented as of this encounter
--- OUTSIDE RECORDS SUMMARY | 2024-08-23 14:15 | XMS_ITS | Encounter Summary ---
Author Organization [employer] Address [address] [place] [address] 7 [place] [address] Care Team Providers Care Dean Of Chapel Name Role Phone Waldo Bonner MD Primary Care Provide r Reason for Visit * Reason Comments Med Refill Encounter Details Date Type Department Care Team ([facility] st Contact Info) Description 03/18/2022 Refill [facility] [address] [place] [address] Nicole Lyles FNP [address] [place] [address] Dept [place] [address] Social History Tobacco Use Types Packs/Day Years [...] on filedocumented in this encounter Care Teams [facility] Of [facility] Relationship Specialty Start Date End Date Waldo Bonner MD [address] [place] [address] PCP - General Internal Medicine 03/27/15 documented as of this encounter
--- OUTSIDE RECORDS SUMMARY | 2024-08-23 14:15 | XMS_ITS | Encounter Summary ---
Author Organization [email or web address] Address [address] [place] [address] [address] [place] [address] Care Team Providers Care Roll Edge Stitcher Hand Name Role Phone Waldo Bonner MD Primary Care Provide r Encounter Details Date Type Department Care Team (Late st Contact Info) Description 01/05/2023 Orders Only [facility] [address] [place] [address] Provider, MD Baron Social History Tobacco Use [...] on filedocumented in this encounter Care Teams Roll Edge Stitcher Hand Relationship Specialty Start Date End Date Waldo Bonner MD [address] [place] [address] PCP - General Internal Medicine 03/27/15 documented as of this encounter
== END 2024-08-23 13:39 | disposition home or self-care (01) ==
LOC: HO.US 13:38
PROVIDERS: PCP Internal Medicine; Visit Provider Internal Medicine
DX: N83.201 Unspecified ovarian cyst, right side (principal)
CPT/HCPCS: 76830; 76856

== ENCOUNTER → 2024-08-23 13:40 | Outpatient (BNV) | payer OTHER, SELFPAY | PROVIDERS: PCP Internal Medicine; Visit Provider Radiology Diagnostic Radiology | DX: N83.201 Unspecified ovarian cyst, right side (principal) | CPT/HCPCS: 76830; 76856 ==

== ENCOUNTER 2024-10-09 08:49 | Outpatient (AMB) | payer OTHER, SELFPAY ==
--- NOTE | 2024-10-09 08:52 | MHC.OFFVIS ---
Vital Signs 10/09/24 08:57 Height 5 ft 6 in Weight 186 lb BMI 30.0 BP 152/90 H Blood Pressure Location Rt brachial Position Sitting Pulse 62 Pulse Source Pulse Oximeter Pulse Oximetry (%) 98 Oxygen Delivery Method Room Air Intake Visit Reasons: 6 mo f/u Intake Note: ESTABLISHED PATIENT for mgmt of GERD, constipation, diverticulosis CC; C.O. concerns pertaining to omeprazole and chronic GERD exacerbation. Pt also wants to review chronic sx. No additional sx or concerns reported. Sink Cutter Required: No Accompanied by: Self / Same As Patient Allergies No Known Allergies (No Known Allergies*) Allergy (Verified 10/09/24 08:52) HPI HPI 6 mo f/u: Details: LAST VISIT: Diverticulosis GERD (gastroesophageal reflux disease) Postprandial epigastric pain Dysphagia IBS (irritable bowel syndrome) Chronic idiopathic constipation Plan Patient will continue taking Trulance daily. Increase fluid intake and activity to promote better bowel motility. Increase fiber intake as well. May take omry-gvi-ozxyzty probiotics. Patient will continue taking omeprazole daily. Avoid dietary triggers and late night snacking. Staying upright for minimum 3 hours after meals discussed with patient. Patient will follow-up in 6 months, sooner on as needed basis. She is agreeable to this plan and verbalizes understanding of instructions. She was given the opportunity to ask questions and all questions answered. ? TODAY'S VISIT: Patient is here today for follow-up. Patient reports that she is taking omeprazole, however feels like her acid reflux is not been controlled very well. Patient was seen by ENT and was told that she has significant reflux. Patient reports occasional dyspepsia without dysphagia or odynophagia. Patient reports that she is moving her bowels without any issues. Denies any melena, hematochezia, unintentional weight loss or ribbon like stools. Patient denies any nausea or vomiting. Denies any other GI concerning symptoms. [facility] Medical History (Updated 10/09/24 @ 09:39 by Sarah Samano, [facility]) GERD (gastroesophageal reflux disease) Diverticulosis Cerebral aneurysm Mass of left axilla 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, low grade (MORIS 1) HTN (hypertension) Surgical History Hx of colonoscopy H/O brain surgery H/O knee surgery History of hysterectomy History of bilateral tubal ligation H/O LEEP Family History Father Colon cancer Mother HTN (hypertension) Social History Household Members: Family Housing: House Alcohol intake: never Patient Tobacco Use Status: Former Tobacco user service: No Current occupational status: unemployed Sexual orientation: Straight/Heterosexual Gender identity: Female Female Reproductive History Menstrual Age of Menarche: 13 Review of Systems Const Denies weight gain and Denies weight loss ENT Reports no additional complaints, Denies dysphagia and Denies odynophagia Card Reports no additional complaints Resp Reports no additional complaints GI Denies abdominal pain, Denies belching, Denies melena, Denies bloating, Denies change in bowel habits, Reports constipation (Occasional), Denies dysphagia, Denies excessive flatus, Denies dyspepsia, Reports heartburn, Denies diarrhea, Denies loose stools, Denies odynophagia and Denies vomiting Reports no additional complaints Musc Reports no additional complaints and Reports back pain Neuro Reports no additional complaints Psych Reports no additional complaints Endo Reports no additional complaints Physical Exam Const General: healthy appearing and no acute distress Nutritional Appearance: well nourished and obese Orientation/consciousness: patient oriented x3 Resp Effort & Inspection: normal respiratory effort, able to speak in complete sentences, no tracheal deviation and symmetric chest movement Auscultation: clear to auscultation bilaterally Cardio Rate: regular rate GI Inspection: Yes normal to inspection and No distended Palpation (GI): Soft to palpation, not firm, nontender and No hepatosplenomegaly present Auscultation: normal bowel sounds General: Yes no CVA tenderness Back/Spine/Pelvis Back: no CVA tenderness Skin General skin exam: elasticity normal, turgor normal and dry skin Neuro General: patient oriented x3 Psych Appearance: grossly normal Mental Status: mental status grossly normal Assessment & Plan Assessment & Plan (1) Diverticulosis: Code(s): K57.90 - Diverticulosis of intestine, part unspecified, without perforation or abscess without bleeding Category: Medical (2) GERD (gastroesophageal reflux disease): Code(s): K21.9 - Gastro-esophageal reflux disease without esophagitis Category: Medical Qualifiers: Esophagitis presence: esophagitis presence not specified Qualified Code(s): K21.9 - Gastro-esophageal reflux disease without esophagitis Plan Will stop omeprazole and patient will start pantoprazole 40 mg daily. Avoid dietary triggers and late night snacking. Staying upright for minimum 3 hours after meals discussed with patient. Patient will be sent for upper endoscopy. I will see her after the procedure, sooner on as needed basis. She is agreeable to this plan and verbalizes understanding of instructions. She was given the opportunity to ask questions and all questions answered. Thank you for allowing me to participate in her care Medications: New pantoprazole take one tablet half an hour before breakfast 40 mg PO DAILY 30 tabs 3RF K21.9 - Gastro-esophageal reflux disease without esophagitis Discontinued omeprazole Discontinued Reason: Doctor's Order 20 mg PO DAILY 30 caps 2RF K21.9 - Gastro-esophageal reflux disease without esophagitis Coding Level of Care Code Est Pt Level 3 (42760) Diagnoses Diverticulosis K57.90 Gastroesophageal reflux disease, unspecified whether esophagitis present K21.9 Esophagitis presence: esophagitis presence not specified Time Spent (min) 30 Comment 20 minutes spent with patient and additional 10 minutes spent reviewing her records
[2024-10-09 08:57] VITALS: BP 152/90; PULSE 62; O2SAT 98
--- OUTSIDE RECORDS SUMMARY | 2024-10-09 09:06 | XMS_ITS | Clinical Summary ---
Author Organization [facility] Address [address] [place] [address] Phone Care Team Providers Care Dispatcher Service Or Work Name Role Phone Waldo Thakkar MD Primary [...] 98 05/08/2024 8:05 PM EST Temperature 37.7 C (99.9 F) 05/08/2024 8:05 PM EST Respiratory Rate 18 05/08/2024 8:05 PM EST [...] patient's age to complete this topic Insurance [employer] MEDICARE Member Subscriber Plan / Payer (Ef fective 2018-Present) Name:Denise Boyce Relation to Subscriber:Self Name:Denise Boyce Payer ID:[id number] Group ID:[id number] Type:Not on file Address: [facility] [address] [id number] Care Teams Dispatcher Service Or Work Relationship Specialty Start Date End Date Waldo Thakkar MD [address] [place] [phone] PCP - General Internal Medicine 05/08/24
--- OUTSIDE RECORDS SUMMARY | 2024-10-09 09:06 | XMS_ITS | Patient Health Record ---
Author Organization [facility] Address [address] [facility] [address] [place] [address] Care Team Providers Care Sausage Mixer Name Role Phone Rachel HILLMAN, Katya Primary Care Provider Mirza ROBBINS MD, SULAIMAN Unavailable [phone] Reason For Referral No Information Medications Medication SIG (Take, Route, Frequency, Duration) Notes Start Date End Date Status Robaxin 500 MG take 2 tablets (1,00 0 mg) by oral route 4 times per day Oral 4 Active oxyCODONE-Acetaminophen 5-325 MG take 1 tablet by oral route every 6 hours as needed Oral 4 Active Percocet 5-325 MG take 1-2 tablets by oral route every 4 to 6 hours as needed Oral 0.25 09/17/2014 Active Keppra 500 MG take 1 tablet (500 m g) by oral route 2 times per day Oral 2 Active HYDROcodone-Acetaminophen 7.5-325 MG Oral Active Fioricet 50-300-40 mg take 1 capsule by oral route every 6 hours as needed oral 09/18/2014 Active Meclizine HCl 25 MG Oral Active Problems Problem Type SNOMED Code ICD Code Onset Dates Problem Status W/U Status Risk Notes Problem Arteriovenous malformation (72415968) Arteriovenous malformation (Q27.30) Active confirmed Problem 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) Active confirmed Problem Aneurysm (73310943) Aneurysm (I72.9) Active confirmed Plan Of Treatment No Information Insurance Providers Payer Name Payer Address Payer Phone Subscriber Number Group Number Insured Name Patient Relationship to Insured Coverage Start Date Coverage End Date [facility] [address] [place] [phone] [id number] Denise Boyce Self - patient is the insured [facility] [address] [place] [address] [phone] [id number] Denise Boyce Self - patient is the insured Medical (General) History Surgical History Surgery Date(Month/Year) Therapies; 2014-10-17 None listed; 2014-10-17
--- OUTSIDE RECORDS SUMMARY | 2024-10-09 09:06 | XMS_ITS | Clinical Summary ---
Author Organization [employer] Address [address] [place] [address] [address] [place] [address] Care Team Providers Care Car Lot Attendant Name Role Phone Waldo Bonner MD Primary [...] for muscle spasms. 30 tablet 4 Active potassium chloride CR (Klor-Con M10) [...] THE MORNING 30 tablet 6 4 Active losartan (Cozaar) 100 MG tabletIndications:P rimary hypertension TAKE 1 TABLET BY MOUTH EVERY DAY 30 tablet 1 5 Active Active Problems Problem Noted Date Diagnosed [...] L5-S1. Pt referred to Dr. Pires at [facility] spine center. She was seen 02/20/2024 His [...] this, and he subsequently referred her to [facility] Pain Management where she has been receiving [...] L5-S1. Pt referred to Dr. Pires at [facility] spine center Assessment & Plan (11/15/2023 1:04 [...] EIN. He was last seen 02/11/2021 by [facility]OLOGICAL SCIENCE TECHNICIAN Oncology. She is now only under the care of Dr Kurtz. 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 He was last seen 02/11/2021 by BIOLOGICAL SCIENCE TECHNICIAN Oncology. She is supposed to be now only under the care of Dr Kurtz. Last seen 11/01/2022 Congenital arteriovenous malformation 03/24/2023 03/24/2023 Assessment & Plan (03/24/2023 9:41 AM EST): Pt has a Hx of s subarachnoid bleed due to AVM and aneurysm 08/31/2014 in [place],. She underwent a cerebral angiogram, coil embolization [...] surgical repair Pt under the care of [facility] . Preventative health care 03/24/2023 [...] medication compliance, counseled about weight loss. Koffi lopezuris 04/13/2022 Mild major depression, single episode 04/17/2015 [...] Encounters Date Type Department Care Team Description 08/31/2024 Telephone [facility] [address] [place] [address] Waldo Bonner MD 08/24/2024 Results Follow-Up [facility] [address] [place] [address] Waldo Bonner MD Pelvis Transvaginal 08/15/2024 Refill [facility] [address] [place] [address] Waldo Bonner MD Primary hypertension 08/06/2024 Orders Only [facility] External Provider, [facility] 07/27/2024 Orders Only [facility] [place] [address] Waldo Bonner MD Right ovarian cyst (Primary Dx) 07/26/2024 Telephone [facility] [address] [place] [address] Waldo Bonner MD PELVIS ORDER 07/24/2024 10:30 AM EDT Office Visit [facility] [place] [address] Waldo Bonner MD Essential hypertension (Primary Dx); Right ovarian cyst; Low back pain radiating to left leg; Mild major depression, single episode (CMS/HCC); BMI 31.0-31.9,adult; Dietary counseling; Exercise counseling; Skin lesion of left leg 07/24/2024 Orders Only GENERIC EXTERNAL DATA DEPARTMENT Provider, Generic External Data 07/24/2024 Travel 07/10/2024 Patient Outreach [facility] [address] [place] [address] Waldo Bonner MD Pre-visit Planning (SDOH Screening negative and Tobacco screening negative) from Last 3 Months Immunizations Immunization Administration [...] 75 07/24/2024 10:31 AM EDT Temperature 36.1 C (96.9 F) 07/24/2024 10:31 AM EDT Respiratory Rate 20 07/24/2024 10:3 [...] exists Dental X-Ray: Full Mouth 11/11/2021 11/10/2018, 0412/2015 COVID-19 Vaccine ( season) 2023 09/22/2020, 08/21/2020 Alcohol/Substance Use Screening 11/14/2024 11/15/2023 Depression Screening 11/14/2024 11/15/2023, 11/15/19 Influenza Vaccine (Season Ended) 2024 01/25/2018, 01/09/2018, 02/19/2016 Mammogram 01/02/2025 01/03/2024, 12/05/2022, 12/28/2022, Additional history exists Disability Screening 07/24/2025 07/24/2024 SDOH Screening 07/24/2025 07/24/2024 Tobacco Screening 07/24/2025 [...] Years) and At-Risk Patients (6 to 49) Years Aged Out No longer eligible based on patient's age to complete this topic RSV under 20 months Aged Out No longe r eligible based on patient's age to complete this topic Rotavirus Vaccines Aged Out No longer eligible based on patient's age to complete this topic Procedures Procedure Name Priority Date/Time Associated Diagnosis Comments US PELVIS TRANSVAGINAL Routine 08/23/2024 2:00 PM EDT Right ovarian cyst FL ESOPHAGUS BARIUM SWALLOW Routine 08/06/2024 7:26 [...] Recently Relevant to Health Maintenance Results * US Pelvis Transvaginal (08/23/2024 2:00 PM EDT) Anatomical Region Laterality Modality Pelvis Ultrasound 08/23/2024 2:00 PM EDT Narrative 08/23/2024 3:03 PM EDT [place] [address] Ultrasound Report Signed Patient: Denise Boyce MR#: [id number] 3 : 1975 Acct:[id number] Age/Sex: 48 / F ADM Date: 08/23/24 Loc: HO.US Attending Dr: Waldo Thakkar MD Ordering Physician: Waldo Thakkar MD Date of Service: 08/23/24 Procedure(s): US pelvic and transvaginal Accession Number(s): [id number] cc: Waldo Thakkar MD EXAMINATION: US PELVIS TRANSABDOMINAL AND TRANSVAGINAL HISTORY: MRI LS spine 01/2024 showed 2.8 cm right ovarian cyst. COMPARISON: Correlation is made with an MRI of the lumbar spine dated 02/09/2024. TECHNIQUE: Transabdominal and endovaginal real-time 2D soliz-scale ultrasound was performed. FINDINGS: Uterus: The uterus is surgically absent. Right ovary: The right ovary measures 3.6 x 2.8 x 2.2 cm. There are multiple right ovarian cysts, the largest of which measures 2.3 x 1.8 x 2.2 cm. There is a 2.1 x 1.6 x 1.8 cm complex appearing cysts with internal septations and echoes. Left ovary: The left ovary measures 3.6 x 2.1 x 1.8 cm. There is a 1.8 cm left ovarian cyst. Pelvic fluid: none. US/US pelvic and transvaginal IMPRESSION: Multiple bilateral ovarian cysts are noted including a 2.1 cm complex appearing right-sided cyst. Follow-up is recommended to document resolution. Electronically signed by: Dennis Mohan MD 08/23/2024 03:01 PM EDT Dictated By: Dennis Mohan MD Signed By: <Electronically signed by Dennis Mohan MD in OV> 08/23/24 1501 DD/ 1400 TD/TT: 08/23/24 1419 Lipcoat Sprayer: Procedure Note Donotuseinterpreter, Image - 08/27/[address] [address] Ultrasound Report Signed Patient: Kushal Boyce#: [id number] 3 : 1975Acct:[id number] Age/Sex: 48 / FADM Date: 08/23/24 Loc: HO.US Attending Dr: Waldo Thakkar MD Ordering Physician: Waldo Thakkar MD Date of Service: 08/23/24 Procedure(s): US pelvic and transvaginal Accession Number(s): [id number] cc: Waldo Thakkar MD EXAMINATION: US PELVIS TRANSABDOMINAL AND TRANSVAGINAL HISTORY: MRI LS spine 01/2024 showed 2.8 cm right ovarian cyst. COMPARISON: Correlation is made with an MRI of the lumbar spine dated 02/09/2024. TECHNIQUE: Transabdominal and endovaginal real-time 2D soliz-scale ultrasound was performed. FINDINGS: Uterus: The uterus is surgically absent. Right ovary: The right ovary measures 3.6 x 2.8 x 2.2 cm. There are multiple right ovarian cysts, the largest of which measures 2.3 x 1.8 x 2.2 cm. There is a 2.1 x 1.6 x 1.8 cm complex appearing cysts with internal septations and echoes. Left ovary: The left ovary measures 3.6 x 2.1 x 1.8 cm. There is a 1.8 cm left ovarian cyst. Pelvic fluid: none. US/US pelvic and transvaginal IMPRESSION: Multiple bilateral ovarian cysts are noted including a 2.1 cm complex appearing right-sided cyst. Follow-up is recommended to document resolution. Electronically signed by: Dennis Mohan MD 08/23/2024 03:01 PM EDT Dictated By: Dennis Mohan MD Signed By: <Electronically signed by Dennis Mohan MD in OV> 08/23/24 1501 DD/ 1400 TD/TT: 08/23/24 1419 Lipcoat Sprayer: us Waldo Alicia MD IMG US PROCEDURES Erik ai Result - Final * FL Esophagus Barium Swallow (08/06/2024 7:26 AM EDT) Anatomical Region Laterality Modality Head, Neck Radiographic Danitza ging 08/06/2024 7:26 AM EDT Narrative 08/06/2024 4:58 PM EDT [address] [address] Fluoroscopy Report Signed Patient: Denise Boyce MR#: [id number] 3 : 1975 Acct:[id number] Age/Sex: 48 / F ADM Date: 08/06/24 Loc: [place] Attending Dr: Tio Wade Ordering Physician: Tio Wade Date of Service: 08/06/24 Procedure(s): FL barium swallow Accession Number(s): [id number] cc: Waldo Thakkar MD; Tio Wade EXAMINATION: [...] Ivan Campa MD 08/06/2024 04:55 PM EDT Dictated By: Ivan Campa MD Signed By: <Electronically signed by Ivan Campa MD in OV> 08/06/24 1655 DD/ 0726 TD/TT: 08/06/24 0756 Lipcoat Sprayer: SHANA Procedure Note Donotuseinterpreter, Image - 08/06/[address] [address] Fluoroscopy Report Signed Patient: Alex BoyceR#: [id number] 3 : 1975Acct:[id number] Age/Sex: 48 / FADM Date: 08/06/24 Loc: HO.XRROMI Attending Dr: Tio Wade Ordering Physician: Tio Wade Date of Service: 08/06/24 Procedure(s): FL barium swallow Accession Number(s): [id number] cc: Waldo Thakkar MD; Tio Wade EXAMINATION: [...] by Ivan Campa MD in OV> 08/06/24 2232 DD/ 0716 TD/TT: 08/06/24 4782 Lipcoat Sprayer: SHANA [facility] External Provider IMG FLU OROSCOPY PROCEDURES Final Result * BUN (Blood Urea Nitrogen) (07/24/2024 11:10 AM EDT) Urea Nitrogen (BUN) 15 9 - 16 mg/dL [facility] 07/24/2024 11:1 0 AM EDT 07/24/2024 1:22 PM EDT us Generic External Data Provider LAB BLOOD ORDERAB LES Final Result Performing Organization Address [facility]/ZIP Co de Phone Number [facility] [address] [place] [address] [phone] * (ABNORMAL) Basic Metabolic Panel (07/24/2024 11:10 AM EDT) Sodium 139 135 - 145 mmol/L [facility] Potassium 3.7 3.3 - 5.1 mmol/L [facility] Chloride 100 96 - 108 mmol/L [facility] Carbon Dioxide 31(H) 22 - 29 mmol/L [facility] Anion Gap 12 12 - 20 [facility] Urea Nitrogen (BUN) 14 9 - 16 mg/dL [facility] Creatinine, Serum 0.74 0.5 - 1.4 mg/dL [facility] Estimated Glomerular Filt Rate >60 [facility] Comment:Chronic Kidney Disea se: Estimated GFR < 60 mL/min/1.21w1Hubvvh Kidney Disease: Estimated GFR < 15 mL/min/1.73m2 Glucose 99 60 - 115 mg/dL [facility] Calcium 10.1 8.4 - 10.2 mg/dL [facility] Blood Venous blood specimen / Unknown 07/24/2024 11:10 AM EDT 07/24/2024 1:22 PM EDT us Waldo Alicia MD LAB BLOOD ORDERABLES Final Result Performing Organization Address [facility]/ZIP Co de Phone Number [facility] [address] [place] [address] [phone] * (ABNORMAL) Lipid Panel, Standard (02/15/2024 9:30 AM EST) Triglycerides 160(H) <150 mg/dL [facility] Comment:Desirable Triglyceri de: less than 150 mg/dLBorderline High Triglyceride 150-199 mg/dLHigh Triglyceride: 200-499 mg/dLVery High Triglyceride: greater than or equal to 5OO mg/dL Cholesterol 121 <200 mg/dL [facility] Comment:Desirable Cholestero l: less than 200 mg/dLBorderline High Cholesterol: 200-239 mg/dLHigh Cholesterol: greater than 239 mg/dL LDL Cholesterol Calculated 57 <100 mg/dL [facility] Comment:Desirable LDL: less than 100 mg/dLNear Optimal/Above Optimal LDL: 110- 129 mg/dLBorderline High LDL: 130-159 mg/dLHigh LDL: 160-189 mg/dLVery High LDL: greater than or equal to 190 mg/dL HDL Cholesterol 32(L) >40 mg/dL [facility] Comment:Desirable HDL: great er than 40 mg/dL Note: This HDL assay may give artificially low results in patients with liver disease. Blood Venous blood specimen / Unknown 02/15/2024 9:30 AM EST 02/15/2024 11:20 AM EST us Waldo Alicia MD LAB BLOOD ORDERABLES Final Result [facility] [address] [place] [phone] * BI Mammogram Screening Tomosynthesis Bilateral (01/03/2024 12:40 PM EDT) Anatomical Region Laterality Modality Breast Bilateral Mammography 01/03/2024 12:4 0 PM EDT Narrative 01/13/2024 8:16 PM EDT [facility] [address] [place] [address] [place] [address] Mammography Report Signed Patient: Denise Boyce MR#: [id number] 3 : 1975 Acct:[id number] Age/Sex: 48 / F ADM Date: 01/03/24 Loc: HO.MAMMO Attending Dr: Waldo Thakkar MD Ordering Physician: Eder Kurtz MD Results: 0Incompl ete: Needs Additional Imaging Evaluation Date of Service: 01/03/24 Follow Up: Additional Imagi ng Procedure(s): MM tomosynthesis screening BI Accession Number(s): [id number] cc: Waldo Thakkar MD; Eder Kurtz MD [...] OV> 01/13/242012 DD/ 1240 TD/TT: 01/03/24 1255 Lipcoat Sprayer: Procedure Note Donotuseinterpreter, Image - 01/13/2024 [facility] [address] [place] [address] Mammography Report Signed Patient: Kushal Boyce#: [id number] 3 : 1975Acct:[id number] Age/Sex: 48 / FADM Date: 01/03/24 Loc: HO.MAMMO Attending Dr: Waldo Thakkar MD Ordering Physician: Eder Kurtz MDResults: 0Incompl ete: Needs Additional Imaging Evaluation Date of Service: 01/03/24Follow Up: Additional Imagi ng Procedure(s): MM tomosynthesis screening BI Accession Number(s): [id number] cc: Waldo Thakkar MD; Eder Kurtz MD [...] OV> 01/13/242012 DD/ 1240 TD/TT: 01/03/24 1255 Lipcoat Sprayer: [facility] External Provider IMG BI PROCEDURES Edited Result - Final * Hm Colonoscopy (05/12/2023) Colonoscopy Normal Normal Don Isabel MD HEALTH MAINTENANCE Final Result * HPV E6/E7 RFLX NEYDA 16 18/45 (09/22/2020 12:50 PM EDT) HPV mRNA E6/E7 rflx Not Detected Not Detected [facility] Comment: Methodology: Entertainer [employer] Comic-Mediated Amplification This assay detects E6/E7 viral messenger RNA (mRNA) from 14 high-risk HPV types (16,18,31,33,35,39,45,51,52,56,58,59,66,68). The analytical performance characteristics of this assay have been determined by [employer]. The modifications have not been cleared or approved by the FDA. This assay has been validated pursuant to the CLIA regulations and is used for clinical purposes. For additional information, please refer to http://education.[employer]/faq/XXS568k5 (This link if provided for information/ educational purposes only.) THIS TEST WAS PERFORMED AT: [employer] [address] [place] [address],[place] [address] LUIS E JI MD 09/22/2020 12:5 0 PM EDT Eder Kurtz MD HISTORICAL/NON ORDERABLE LABS Fi nal Result [facility] [address] * Pap Smear (09/22/2020) Historical Provider HEALTH MAINTENANCE Final Result from Last 3 Months or Most Recently Relevant to Health Maintenance Insurance [employer] ONE CARE < 65 CCA ONE CARE < 65 [facility] - [facility] Care Teams Car Lot Attendant Relationship Specialty Start Date End Date Waldo Bonner MD [address] [place] [phone] PCP - General Internal Medicine 03/27/15
--- OUTSIDE RECORDS SUMMARY | 2024-10-09 09:07 | XMS_ITS | Clinical Summary ---
Author Organization [facility] Address [address] [place] [address] Phone Care Team Providers Care Smoking Pipe Mounter Name Role Phone Waldo Cullen MD Primary [...] Vaccine (Season Ended) 2024 01/26/20 18 Insurance [facility] One Care Dual SNP ([id number]) [facility] One Care Dual SNP ([id number]) Care Teams Smoking Pipe Mounter Relationship Specialty Start Date End Date Waldo Cullen MD PCP - General Internal Medicine 10/07/21
== END 2024-10-09 10:17 | disposition home or self-care (01) ==
LOC: HO.HGI 08:50
PROVIDERS: PCP Internal Medicine; Visit Provider Nurse Practitioner Family
DX: K57.90 Diverticulosis of intestine, part unspecified, without perforation or abscess without bleeding (principal); K21.9 Gastro-esophageal reflux disease without esophagitis
CPT/HCPCS: 99213

== ENCOUNTER → 2024-10-09 08:49 | Outpatient (BNVA) | payer OTHER, SELFPAY | PROVIDERS: PCP Internal Medicine; Visit Provider Nurse Practitioner Family | DX: K21.9 Gastro-esophageal reflux disease without esophagitis (principal); K57.90 Diverticulosis of intestine, part unspecified, without perforation or abscess without bleeding | CPT/HCPCS: 99212 ==

== ENCOUNTER 2024-12-25 10:14 | Outpatient (AMB) | payer OTHER, SELFPAY ==
--- OUTSIDE RECORDS SUMMARY | 2018-03-08 11:00 | XMS_ITS | Encounter Summary ---
Author Organization [facility] Address [address] [address] Phone Care Team Providers Care Barrel Burner Name Role Phone Waldo Thakkar MD Primary Care Provide r Encounter Details Date Type Department Care Team (Late st Contact Info) Description 03/08/2018 10:00 AM EST Hospital Encounter [facility] and Women[facility] OB Ultrasound [address] [place] [address] Presley Baig MD, PhD [address] [place] [address] [email or web address] Social History Tobacco Use Types Packs/Day Years [...] TEST PERFORMED: OB Ultrasound >14 weeks detailed (32152) INDICATION/REASON FOR TESTS: Advanced maternal age I. [...] TEST PERFORMED: OB Ultrasound >14 weeks detailed ([id number]) INDICATION/REASON FOR TESTS: Advanced maternal age I. [...] EDC 06/06 27.1 Presley Baig MD, PhD [facility] Final Result documented in this encounter Visit Diagnoses Not on filedocumented in this encounter Care Teams Barrel Burner Relationship Specialty Start Date End Date Waldo Thakkar MD [address] [place] [address] [address] [place] [phone] [email or web address] PCP - General Internal Medicine 03/06/18 documented as of this encounter Additional Source Comments The information contained in this document represents components of the legal health record. It is not the complete legal health record.[facility]
--- OUTSIDE RECORDS SUMMARY | 2018-05-17 13:46 | XMS_ITS | Encounter Summary ---
Author Organization [facility] Address [address] [address] Phone Care Team Providers Care E M Assembler Name Role Phone Waldo Thakkar MD Primary Care Provide r Encounter Details Date Type Department Care Team (Late st Contact Info) Description 05/17/2018 12:46 PM EST Hospital Encounter [facility] and [facility] OB Ultrasound [address] [place] [address] Ana Morrissey PA-C [address] [place] [address] [email or web address] Social History Tobacco Use Types Packs/Day Years [...] Priority Date/Time Associated Diagnosis Comments US OB BIOPHYSICAL PROFILE WITH DOPPLER Routine 05/17/2018 1:34 PM EST documented in this encounter Results * US OB BIOPHYSICAL PROFILE WITH DOPPLER (05/17/2018 1:34 PM EST) Anatomical Region Laterality Modality Abdomen, Pelvis, Uterus/Adnexa U ltrasound 05/17/2018 Narrative 05/17/2018 1:42 PM EST TESTS PERFORMED: Biophysical profile ([id number]) Umbilical artery Doppler ([id number]) INDICATIONS/REASONS FOR TESTS: Abnormal finding heart anomaly Intrauterine growth restriction I. REPORT Gestational Age (based on previous U/S): 37.1 weeks [37 weeks and 1 day] (EDC 06/06) STATUS: Alive NUMBER: [place] POSITION: Vertex ACTIVITY: Present AMNIOTIC FLUID: Normal Volume PLACENTA: Anterior, No previa on prior scan BIOPHYSICAL PROFILE: AFV, FM, FT, FBM SCORE = 8/8 UMBILICAL ARTERY DOPPLER: Normal waveform Anatomy HEART: Abnormal Comments/Summary Tetralogy of Fallot. II. MEASUREMENTS (mm) AND CALCULATIONS Basis for GA GA Estimate (wks) Prev US 05/11 37.1 Procedure Note Raiza Espinoza MD - 05/17/2018 TESTS PERFORMED: Biophysical profile ([id number]) Umbilical artery Doppler ([id number]) INDICATIONS/REASONS FOR TESTS: Abnormal finding heart anomaly Intrauterine growth restriction I. REPORT Gestational Age (based on previous U/S): 37.1 weeks [37 weeks and 1 day] (EDC 06/06) STATUS: Alive NUMBER: [place] POSITION: Vertex ACTIVITY: Present AMNIOTIC FLUID: Normal Volume PLACENTA: Anterior, No previa on prior scan BIOPHYSICAL PROFILE: AFV, FM, FT, FBM SCORE = 8/8 UMBILICAL ARTERY DOPPLER: Normal waveform Anatomy HEART: Abnormal Comments/Summary Tetralogy of Fallot. II. MEASUREMENTS (mm) AND CALCULATIONS Basis for GA GA Estimate (wks) Prev US 05/11 37.1 us Ana Morrissey PA-C IMG US OBSTETRIC Final Result documented in this encounter Visit Diagnoses Not on filedocumented in this encounter Additional Health Concerns Assessment Noted Time PHQ-2 Depression Total Score: 0 05/11/19 19 1:25 PM EST documented as of this encounter Care Teams E M Assembler Relationship Specialty Start Date End Date Waldo Thakkar MD [address] [place] [address] [address] [place] [phone] [email or web address] PCP - General Internal Medicine 03/06/18 documented as of this encounter Additional Source Comments The information contained in this document represents components of the legal health record. It is not the complete legal health record.[facility]
--- NOTE | 2024-12-25 10:48 | MHC.OFFVIS ---
Vital Signs 12/25/24 10:49 Height 5 ft 6 in Weight 180 lb BMI 29.0 BP 152/100 H Blood Pressure Location Rt brachial Position Sitting Respiration 16 Pulse 67 Pulse Oximetry (%) 99 Intake Visit Reasons: 6m SAH White Shoe Examiner Required: No Allergies No Known Allergies (No Known Allergies*) Allergy (Verified 12/25/24 10:48) Medication List - Last Reconciled 12/25/24 by Windy Meng CNP buspirone 15 mg PO BID zkhebfupwl-kwvvferoatiym-yymi 50-325-40 mg 1 tab PO DAILY PRN cholecalciferol (vitamin D3) 25 mcg PO DAILY clonazepam 0.5 mg PO DAILY PRN diclofenac sodium 1% 1 ea topical QID PRN hydrochlorothiazide 25 mg PO DAILY hydroxyzine pamoate 25 mg PO BID losartan 100 mg PO DAILY meclizine 25 mg PO BID PRN melatonin 5 mg PO DAILY PRN methylcellulose (laxative) (Citrucel) 500 mg PO DAILY mirtazapine 7.5 mg PO BEDTIME multivitamin 1 tab PO DAILY pantoprazole 40 mg PO DAILY plecanatide (Trulance) 3 mg PO DAILY rosuvastatin 20 mg PO BEDTIME sertraline 300 mg PO DAILY PRN HPI Comments Details: Denise is a 41-year-old female patient with a past medical history of migraine, SAH from ruptured aneurysm in August of 2014 while in [place]. 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 In February of 2015 the AVM was resected also in [place]. She also has a history of chronic migraine for which she has been managed on as-needed Fioricet for quite some time. She was last seen in the clinic by Annie Nevarez NP in June of 2024. At that time, she was continued on Fioricet for as-needed management. Today she presents to the clinic for a follow-up visit. She tells me that she is currently having daily headaches of which are worse in the morning hours and typically improve somewhat throughout the day. Some days however headaches can become severe at which time she will take a Fioricet for abortive therapy. She estimates that she is taking Fioricet 2-3 times per week. Headaches are often described as a pressure sensation to the bitemporal areas. Headaches are often accompanied by light and sound sensitivity as well as nausea and headaches become more severe. Headaches are not worse in any specific position. Caffeine can also help with abortive measures. When she takes a Fioricet approximately 75% of her headaches are reduced. She does note that anxiety can also exacerbate her headaches and she has been feeling somewhat more anxious recently. She is currently on buspirone 15 mg twice daily and sertraline 300 mg daily.. She also takes clonazepam and hydroxyzine as needed. Sleep can be difficult. She does take mirtazapine at bedtime however in the morning, she feels as if she is ?hung over?. She has not had a sleep study in the past. Past medication trials: Fioricet currently taking with 75% efficacy Losartan-takes for blood pressure Mirtazapine 7.5 mg at bedtime for sleep Sertraline 300 mg daily for moods Prior workup: Last MRI of the brain in 2019. No report available for review. 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, low grade (MORIS 1) HTN (hypertension) Surgical History Hx of colonoscopy H/O brain surgery H/O knee surgery History of hysterectomy History of bilateral tubal ligation H/O LEEP Family History Father Colon cancer Mother HTN (hypertension) Social History Household Members: Family Housing: House Alcohol intake: never Patient Tobacco Use Status: Former Tobacco user service: No Current occupational status: unemployed Sexual orientation: Straight/Heterosexual Gender identity: Female Female Reproductive History Menstrual Age of Menarche: 13 Review of Systems Const Reports as per HPI Physical Exam Exam Exam: Tenderness with palpation to the right occipital notch area. Const General: cooperative, healthy appearing, comfortable and no acute distress Nutritional Appearance: well nourished Orientation/consciousness: patient oriented x3 Limitations: no limitations HEENT Head: Yes normal to inspection and Yes normocephalic Eyes General: appearance normal, both eyes and all related structures Visual León: normal visual león by confrontation Alignment and Position: alignment normal Periorbital: periorbital findings normal Eyelids: Yes eyelids normal Conjunctivae: conjunctivae normal Sclerae: sclerae normal Direct Ophthalmoscopy: normal light reflex Neck Neck: Yes normal visual inspection and Yes full ROM General: Yes no CVA tenderness Back/Spine/Pelvis Back: no CVA tenderness Cervical Spine: normal cervical lordosis Thoracic/Lumbar Spine: thoracic and lumbar spine normal to inspection Neuro General: patient oriented x3, tone normal and deep tendon reflexes 2+ bilaterally Cranial nerves: Yes CN's II-XII intact bilaterally and Yes Facial sensation intact/muscles of mastication intact Cognition (Neuro): normal cognition Gait exam (Neuro): Normal gait present Motor exam (neuro): 5/5 motor strength present throughout and no tremor noted Sensory Exam: double simultaneous stimulation for sensation normal Romberg Test: Negative Pupils: Normal pupillary reactivity/response: bilateral Psych Appearance: grossly normal Mental Status: mental status grossly normal Speech and movement: Normal speech and movement present and Clear speech present Affect: normal affect Attitude: cooperative Thought process: Normal thought process present Thought content: Normal thought content present Insight: Good insight present (Psych) Judgement: Good judgement present (Psych) Assessment & Plan Assessment & Plan (1) Chronic migraine without aura without status migrainosus, not intractable: Code(s): G43.709 - Chronic migraine without aura, not intractable, without status migrainosus Category: Medical (2) Morning headache: Code(s): R51.9 - Headache, unspecified Category: Medical Plan Denise is a 41-year-old female patient with a past medical history of SAH here today for evaluation of her chronic headaches/migraines. She is currently only taking Fioricet for as-needed therapy and is not currently on any medications specifically for migraine prevention/maintenance. Headaches do seem to be much worse in the morning hours accompanied by a feeling of being hung over. Headaches do improve sides throughout the day though sometimes can become severe. Because of the trend in headache pain I think getting a sleep study would be reasonable to rule out sleep disordered breathing that can often cause worsening morning headaches. For migraine prevention. I would like to start her on a once monthly injectable. She is not a good candidate for other options provided that she is already on antihypertensives, already on numerous medications that alter her moods (would avoid tricyclic antidepressants and topiramate for this reason). If her headaches do not improve with a once monthly injectable and her sleep study is normal, would consider an MRI of the brain. -Sleep study -Start a trial of Emgality for migraine prevention -Consider MRI if sleep study is normal -May continue limited use of Fioricet for now. We will consider alternative agents for abortive therapy in the future Coding Level of Care Code New Pt Level 4 (94740) Diagnoses Chronic migraine without aura without status migrainosus, not intractable G43.709 Morning headache R51.9
[2024-12-25 10:49] VITALS: BP 152/100; PULSE 67; RESP 16; O2SAT 99; BMI 29.0
--- OUTSIDE RECORDS SUMMARY | 2024-12-25 13:24 | XMS_ITS | Encounter Summary ---
Author Organization [employer] Address [address] [place] [address] 7 [place] [address] Care Team Providers Care Technical Producer Name Role Phone Waldo Bonner MD Primary Care Provide r Encounter Details Date Type Department Care Team ([facility] st Contact Info) Description 04/13/2022 Orders Only [facility] [address] [place] [address] Carmen Mello, RN Social History Tobacco Use [...] on filedocumented in this encounter Care Teams Technical Producer Relationship Specialty Start Date End Date Waldo Bonner MD [address] [place], [place] [phone] PCP - General Internal Medicine 03/27/15 documented as of this encounter
--- OUTSIDE RECORDS SUMMARY | 2024-12-25 13:24 | XMS_ITS | Encounter Summary ---
Author Organization [employer] Address [address] [place] [address] 7 [place] [address] Care Team Providers Care Vice President Consulting Services Name Role Phone Waldo Bonner MD Primary Care Provide r Encounter Details Date Type Department Care Team (Late st Contact Info) Description 01/05/2023 Orders Only [facility] [address] [place] [address] Provider, MD Baron Social History Tobacco Use [...] on filedocumented in this encounter Care Teams Vice President Consulting Services Relationship Specialty Start Date End Date Waldo Bonner MD [address] [place] [address] PCP - General Internal Medicine 03/27/15 documented as of this encounter
--- OUTSIDE RECORDS SUMMARY | 2024-12-25 13:24 | XMS_ITS | Encounter Summary ---
Author Organization [employer] Address [address] [place] [address] 7 [place] [address] Care Team Providers Care Cloth Dyeing Range Tender Name Role Phone Waldo Bonner MD Primary Care Provide r Encounter Details Date Type Department Care Team (Latest Contact Info) Description 11/10/2018 Abstract [facility] Dental, Provider, DDS Social History [...] on filedocumented in this encounter Care Teams Cloth Dyeing Range Tender Relationship Specialty Start Date End Date Waldo Bonner MD [address] [place] [phone] PCP - General Internal Medicine 03/27/15 documented as of this encounter
--- OUTSIDE RECORDS SUMMARY | 2024-12-25 13:24 | XMS_ITS | Encounter Summary ---
Author Organization [facility] Address [address] [place] [address] Phone Care Team Providers Care Rehab Physician Name Role Phone Waldo Cullen MD Primary Care Provider Unav ailable Encounter Details Date Type Department Care Team (Late st Contact Info) Description 02/11/2022 Documentation Only [facility] [address] [place] [id number] Leatha Alicia Social History Tobacco Use Types [...] on filedocumented in this encounter Care Teams Rehab Physician Relationship Specialty Start Date End Date Waldo Cullen MD PCP - General Internal Medicine 10/07/21 documented as of this encounter
--- OUTSIDE RECORDS SUMMARY | 2024-12-25 13:24 | XMS_ITS | Encounter Summary ---
Author Organization [employer] Address [address] [place] [address] 7 [place] [address] Care Team Providers Care Network Field Engineer Name Role Phone Waldo Bonner MD Primary Care Provide r Reason for Visit * Reason Comments Med Refill Encounter Details Date Type Department Care Team ([facility] st Contact Info) Description 01/12/2023 Refill [facility]INE [address] [place], [place] [phone] Waldo Bonner MD [address] [place] [address] Primary hypertension Social History Tobacco Use Types [...] hypertension documented in this encounter Care Teams Network Field Engineer Relationship Specialty Start Date End Date Waldo Bonner MD [address] [place] [address] PCP - General Internal Medicine 03/27/15 documented as of this encounter
--- OUTSIDE RECORDS SUMMARY | 2024-12-25 13:24 | XMS_ITS | Encounter Summary ---
Author Organization [facility] Address [address] [place] [phone] Phone Care Team Providers Care Water Gas Operator Name Role Phone Waldo Thakkar MD Primary Care Provide r Encounter Details Date Type Department Care Team (Late st Contact Info) Description 03/23/2018 Ancillary Orders [facility] Maternal Medicine [address] [place] [address] Presley Baig MD, PhD [address] [place] [address] [email or web address] , supervision, high-risk Social History Tobacco Use Types Packs/Day Years Used Date Smoking Tobacco: Never Smokeless Tobacco: Never Alcohol Use Standard Drinks/Week Comments No 0 (1 standard drink = 0.6 oz pur e alcohol) Comments Yes Sex and Gender Information Value Date Recorded [...] on file documented as of this encounter Results * US OB GREATER THAN OR EQUAL TO 14 WEEKS ANATOMICAL COMPLETE SURVEY WITH DOPPLER (03/23/2018 11:53 AM EST) Anatomical Region Laterality Modality Abdomen, Pelvis, Uterus/Adnexa U ltrasound 03/23/2018 Narrative 03/23/2018 12:11 PM EST TESTS PERFORMED: OB Ultrasound >14 weeks complete (21997) Biophysical profile (05808) Umbilical artery Doppler (42627) INDICATIONS/REASONS FOR TESTS: Abnormal finding heart anomaly Intrauterine growth restriction I. REPORT Gestational Age (based on previous U/S): 29.3 weeks [29 weeks and 2 days] (EDC 06/06) Estimated Weight: 1136 gms +/- 193 gms [2 lbs and 8 oz] Weight Percentile for Gestational Age: 5%ile STATUS: Alive NUMBER: Radford POSITION: Vertex ACTIVITY: Present AMNIOTIC FLUID: Normal Volume PLACENTA: Anterior, Not Previa UMBILICAL CORD: 3VC, Normal placental insertion CERVIX: Normal, >3 cm in length and no funneling BIOPHYSICAL PROFILE: AFV, FM, FT, FBM SCORE = 8/8 UMBILICAL ARTERY DOPPLER: Normal waveform OVARIES: Both normal Anatomy HEAD: Normal intracranial anatomy, including brain and ventricles SPINE: Normal FACE: Normal NECK/THORAX: Normal HEART: Abnormal ABDOMEN,GI: Normal, Stomach Seen ABDOMEN,: Normal, Bladder Seen ABDOMEN,MISC: Normal VENTRAL WALL: Normal umbilical cord insertion EXTREMITIES: All 4 normal in size and appearance Comments/Summary Tetralogy of Fallot. Results were communicated and documented using ANCR. II. MEASUREMENTS (mm) AND CALCULATIONS BPD 71.5 OFD 94.5 AD 74.5 FL 51 HC 272.2 AC 234 (8%ile) HC/AC 1.16 (Normal range: 0.99 - 1.19) Basis for GA GA Estimate (wks) BPDc 29.4 BPD 28.7 FL 27.0 Prev US 03/08 29.3 Procedure Note Alyssa Koch MD - 03/23/2018 TESTS PERFORMED: OB Ultrasound >14 weeks complete (64135) Biophysical profile (57428) Umbilical artery Doppler (02148) INDICATIONS/REASONS FOR TESTS: Abnormal finding heart anomaly Intrauterine growth restriction I. REPORT Gestational Age (based on previous U/S): 29.3 weeks [29 weeks and 2 days] (EDC 06/06) Estimated Weight: 1136 gms +/- 193 gms [2 lbs and 8 oz] Weight Percentile for Gestational Age: 5%ile STATUS: Alive NUMBER: Radford POSITION: Vertex ACTIVITY: Present AMNIOTIC FLUID: Normal Volume PLACENTA: Anterior, Not Previa UMBILICAL CORD: 3VC, Normal placental insertion CERVIX: Normal, >3 cm in length and no funneling BIOPHYSICAL PROFILE: AFV, FM, FT, FBM SCORE = 8/8 UMBILICAL ARTERY DOPPLER: Normal waveform OVARIES: Both normal Anatomy HEAD: Normal intracranial anatomy, including brain and ventricles SPINE: Normal FACE: Normal NECK/THORAX: Normal HEART: Abnormal ABDOMEN,GI: Normal, Stomach Seen ABDOMEN,: Normal, Bladder Seen ABDOMEN,MISC: Normal VENTRAL WALL: Normal umbilical cord insertion EXTREMITIES: All 4 normal in size and appearance Comments/Summary Tetralogy of Fallot. Results were communicated and documented using ANCR. II. MEASUREMENTS (mm) AND CALCULATIONS BPD 71.5 OFD 94.5 AD 74.5 FL 51 HC 272.2 AC 234 (8%ile) HC/AC 1.16 (Normal range: 0.99 - 1.19) Basis for GA GA Estimate (wks) BPDc 29.4 BPD 28.7 FL 27.0 Prev US 03/08 29.3 Presley Baig MD, PhD IMG US OBSTETR IC Final Result documented in this encounter Visit Diagnoses Diagnosis , supervision, high-risk Unspecified high-risk , supervision, high-risk Unspecified high-risk documented in this encounter Care Teams Water Gas Operator Relationship Specialty Start Date End Date Waldo Thakkar MD [address] [place] [address] [address] [place] [phone] [email or web address] PCP - General Internal Medicine 03/06/18 documented as of this encounter Additional Source Comments The information contained in this document represents components of the legal health record. It is not the complete legal health record.[facility]
--- OUTSIDE RECORDS SUMMARY | 2024-12-25 13:24 | XMS_ITS | Clinical Summary ---
Author Organization [email or web address] Address [address] [place] [address] 7[address] [place] [address] Care Team Providers Care Refuge Worker Name Role Phone Waldo Bonner MD Primary [...] L5-S1. Pt referred to Dr. Pires at [facility] spine center. She was seen 02/20/2024 His [...] this, and he subsequently referred her to [facility] Pain Management where she has been receiving [...] L5-S1. Pt referred to Dr. Pires at [facility] spine center Assessment & Plan (11/15/2023 1:04 [...] EIN. He was last seen 02/11/2021 by [facility]. She is now only under the care of Dr Kurtz. 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 He was last seen 02/11/2021 by [facility]. She is supposed to be now only under the care of Dr Kurtz. Last seen 11/01/2022 Congenital arteriovenous malformation 03/24/2023 03/24/2023 Assessment & Plan (03/24/2023 9:41 AM EST): Pt has a Hx of s subarachnoid bleed due to AVM and aneurysm 08/31/2014 in [place],. She underwent a cerebral angiogram, coil embolization [...] surgical repair Pt under the care of [facility] . Preventative health care 03/24/2023 Assessment & [...] Encounters Date Type Department Care Team Description 11/18/2024 Refill [facility] [address] [place] [address] Catherine Jackson MD Primary hypertension from Last 3 Months Immunizations Immunization Administration [...] FOBT 1975 HIV Screening 1975 Sigmoidoscopy 1976 Alcohol/Substance Use Screening 1988 Family Planning (PISQ) 12/03/1991 Hepatitis C Screening 1994 Dental Oral Exam 05/14/2019 11/10/2018, , 08/08/2015 Dental Prophylaxis 05/14/2019 11/10/2018, 1 06/07/2017, 10/04/2017, Additional history exists Dental X-Ray: Bitewings 11/12/2019 11/11/19 19, 10/04/2017, 03/23/2016, Additional history exists Dental X-Ray: Full Mouth 11/11/2021 11/10/2018, 07/11 Depression Screening 11/14/2024 11/15/2023, 11/15/19 COVID-19 Vaccine (3 - 2024- season) 2024 09/22/2020, 08/21/2020 Influenza Vaccine (#1) 2024 8, 01/09/2018, 02/19/2016 Mammogram 01/02/2025 01/03/2024, 03/12, 12/28/2022, Additional history exists Disability Screening 07/24/2025 [...] Procedure Name Priority Date/Time Associated Diagnosis Comments LIPID PANEL, STANDARD Routine 02/15/2024 9:30 AM [...] Recently Relevant to Health Maintenance Results * (ABNORMAL) Lipid Panel, Standard (02/15/2024 9:30 AM EST) Triglycerides 160(H) <150 mg/dL [facility] Comment:Desirable Triglyceri de: less than 150 mg/dLBorderline High Triglyceride 150-199 mg/dLHigh Triglyceride: 200-499 mg/dLVery High Triglyceride: greater than or equal to 5OO mg/dL Cholesterol 121 <200 mg/dL [facility] Comment:Desirable Cholestero l: less than 200 mg/dLBorderline High Cholesterol: 200-239 mg/dLHigh Cholesterol: greater than 239 mg/dL LDL Cholesterol Calculated 57 <100 mg/dL [facility] Comment:Desirable LDL: less than 100 mg/dLNear Optimal/Above Optimal LDL: 110- 129 mg/dLBorderline High LDL: 130-159 mg/dLHigh LDL: 160-189 mg/dLVery High LDL: greater than or equal to 190 mg/dL HDL Cholesterol 32(L) >40 mg/dL [facility] Comment:Desirable HDL: great er than 40 mg/dL Note: This HDL assay may give artificially low results in patients with liver disease. Blood Venous blood specimen / Unknown 02/15/2024 9:30 AM EST 02/15/2024 11:20 AM EST us Waldo Alicia MD LAB BLOOD ORDERABLES Final Result [facility] [address] [place] [address] [phone] * BI Mammogram Screening Tomosynthesis Bilateral (01/03/2024 12:40 PM EDT) Anatomical Region Laterality Modality Breast Bilateral Mammography 01/03/2024 12:4 0 PM EDT Narrative 01/13/2024 8:16 PM EDT [address] [place] [address] Mammography Report Signed Patient: Denise Boyce MR#: [id number] 3 : 1975 Acct:[id number] Age/Sex: 48 / F ADM Date: 01/03/24 Loc: HO.MAMMO Attending Dr: Waldo Thakkar MD Ordering Physician: Eder Kurtz MD Results: 0Incompl ete: Needs Additional Imaging Evaluation Date of Service: 01/03/24 Follow Up: Additional Imagi ng Procedure(s): MM tomosynthesis screening BI Accession Number(s): [id number] cc: Waldo Thakkar MD; Eder Kurtz MD [...] Brianda Brooks DO 01/13/2024 08:13 PM EDT RP Dictated By: Brianda Brooks DO Signed By: <Electronically signed by Brianda Brooks DO in OV> 01/13/242012 DD/ 1240 TD/TT: 01/03/24 1255 Director Of Home Care Hospice: Procedure Note Donotuseinterpreter, Image - [facility] [address] [place], [place] [address] Mammography Report Signed Patient: Kushal Boyce#: [id number] 3 : 1975Acct:[id number] Age/Sex: 48 / FADM Date: 01/03/24 Loc: HO.MAMMO Attending Dr: Waldo Thakkar MD Ordering Physician: Eder Kurtz MDResults: 0Incompl ete: Needs Additional Imaging Evaluation Date of Service: 01/03/24Follow Up: Additional Imagi ng Procedure(s): MM tomosynthesis screening BI Accession Number(s): [id number] cc: Waldo Thakkar MD; Eder Kurtz MD [...] Brianda Brooks DO 01/13/2024 08:13 PM EDT RP Dictated By: Brianda Brooks DO Signed By: <Electronically signed by Brianda Brooks DO in OV> 01/13/242012 DD/ 1240 TD/TT: 01/03/24 1255 Director Of Home Care Hospice: [facility] External Provider IMG BI PROCEDURES Edited Result - Final * Colonoscopy (05/12/2023) Pathologist [facility] Colonoscopy Normal Normal Don Isabel MD HEALTH MAINTENANCE Final Result * HPV E6/E7 RFLX NEYDA 16 18/45 (09/22/2020 12:50 PM EDT) Pathologist [facility] HPV mRNA E6/E7 rflx Not Detected Not Detected [facility] Comment: Methodology: Fire Production Operator-Mediated Amplification This assay detects E6/E7 viral messenger RNA (mRNA) from 14 high-risk HPV types (16,18,31,33,35,39,45,51,52,56,58,59,66,68). The analytical performance characteristics of this assay have been determined by [employer]. The modifications have not been cleared or approved by the FDA. This assay has been validated pursuant to the CLIA regulations and is used for clinical purposes. For additional information, please refer to http://education.TuneUp.PEER/faq/UPL929j0 (This link if provided for information/ educational purposes only.) THIS TEST WAS PERFORMED AT: [facility] [address] [place] [address] [address]LO[address],[place] [address] LUIS E JI MD 09/22/2020 12:5 0 PM EDT Eder Kurtz MD HISTORICAL/NON ORDERABLE LABS Fi nal Result [facility] [address] * Pap Smear (09/22/2020) Historical Provider HEALTH MAINTENANCE Final Result from Last 3 Months or Most Recently Relevant to Health Maintenance Insurance [facility] ONE CARE < 65 [employer] ONE CARE < 65 [place] [id number] DENTAL - [employer] Care Teams Refuge Worker Relationship Specialty Start Date End Date Waldo Bonner MD [address] [place] [address] PCP - General Internal Medicine 03/27/15
--- OUTSIDE RECORDS SUMMARY | 2024-12-25 13:24 | XMS_ITS | Encounter Summary ---
Author Organization [employer] Address [address] [place] [address] [address] [place] [address] Care Team Providers Care Research Investigator Name Role Phone Waldo Bonner MD Primary Care Provide r Reason for Visit * Reason Comments Med Refill Encounter Details Date Type Department Care Team ([facility] st Contact Info) Description 03/18/2022 Refill [facility] MED[facility] [address] [place] [address] Nicole Lyles FNP Social History Tobacco Use Types Packs/Day Years [...] on filedocumented in this encounter Care Teams Research Investigator Relationship Specialty Start Date End Date Waldo Bonner MD [address] [place] [address] PCP - General Internal Medicine 03/27/15 documented as of this encounter
--- OUTSIDE RECORDS SUMMARY | 2024-12-25 13:24 | XMS_ITS | Encounter Summary ---
Author Organization [email or web address] Address [address] [place] [address] 7 [place] [address] Care Team Providers Care Speech Therapist Technician Name Role Phone Waldo Bonner MD Primary Care Provide r Reason for Visit * Reason Onset Date Comments appt 06/01/2023 Encounter Details Date Type Department Care Team ([facility] st Contact Info) Description 06/01/2023 Telephone [facility] [address] [place] [address] Jeison Taylor DDS [address] [place] [address] appt Social History Tobacco Use Types Packs/Day [...] Taylor. However,she was on wait list in [facility] since 08/2021 and was checking in on it. Wait list does not transfer to [facility] and would like to be scheduled. [...] documented as of this encounter Care Teams Speech Therapist Technician Relationship Specialty Start Date End Date Waldo Bonner MD [address] [place] [address] PCP - General Internal Medicine 03/27/15 documented as of this encounter
--- OUTSIDE RECORDS SUMMARY | 2024-12-25 13:24 | XMS_ITS | Patient Health Record ---
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 Problem Aneurysm (30543717) Aneurysm (I72.9) Active confirmed Plan Of Treatment No Information Insurance Providers Payer Name Payer Address Payer Phone Subscriber Number Group Number Insured Name Patient Relationship to Insured Coverage Start Date Coverage End Date [facility] [address] [place] [address] [id number] Denise Boyce Self - patient is the insured [facility] [address] [place] [address] [id number] Denise Boyce Self - patient is the insured Medical (General) History Surgical History Surgery Date(Month/Year) Therapies; 2014-10-17 None listed; 2014-10-17
--- OUTSIDE RECORDS SUMMARY | 2024-12-25 13:24 | XMS_ITS | Encounter Summary ---
Author Organization [facility] Address [address] [place] [address] Phone Care Team Providers Care Director Of Student Financial Aid Name Role Phone Waldo Thakkar MD Primary Care Provide r Encounter Details Date Type Department Care Team (Late st Contact Info) Description 05/31/2018 Procedure [facility] [address] [place] [address] Social History Tobacco Use Types Packs/Day Years Used Date Smoking Tobacco: Never Smokeless Tobacco: Never Alcohol Use Standard Drinks/Week Comments No 0 (1 standard drink = 0.6 oz pur e alcohol) Comments No Sex and Gender Information Value [...] documented as of this encounter Care Teams Director Of Student Financial Aid Relationship Specialty Start Date End Date Waldo Thakkar MD [address] [place] [address] [place] [phone] PCP - General Internal Medicine 03/06/18 documented as of this encounter Additional Source Comments The information contained in this document represents components of the legal health record. It is not the complete legal health record.[facility]
--- OUTSIDE RECORDS SUMMARY | 2024-12-25 13:24 | XMS_ITS | Clinical Summary ---
Author Organization [facility] Address [address] [place] [address] Phone Care Team Providers Care Associate Professor Of Literacy Name Role Phone Waldo Thakkar MD Primary Care Provide r Allergies No known active allergies Medications vit calc,iron,folic ( VITAMIN ORAL) Take by mouth. Active acetaminophen (TYLENOL) 325 mg tablet Take 2 tablets (650 mg total) by mouth every 4 (four) hours as needed for mild pain (fever greater than 38.4 degrees C). 30 tablet 1 06/02/2018 Active ibuprofen (ADVIL,MOTRIN) 600 MG tablet Take 1 tablet (600 mg total) by mouth every 6 (six) hours as needed. 30 tablet 1 06/02/2018 Active docusate sodium (COLACE) 100 MG capsule Take 1 capsule (100 mg total) by mouth 2 (two) times a day. 30 capsule 1 06/02/2018 Active senna (SENOKOT) 8.6 mg tablet Take 2 tablets by mouth nightly at bedtime. 30 tablet 1 06/02/2018 Active Active Problems Problem Noted Date Diagnosed Date Normal intrauterine , antepartum 2018 problem in second trimester 02/13/2018 Overview (05/11/2018): Diagnosis TOF Aneuploidy screening neg NIPT. 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 Followed by neuro at [place]. Dr Henderson last MRI approx 2015. Plan for repeat MRI during to help determine MOD Depression 02/13/2018 Overview (02/14/2018): Onset with ruptured cerebral aneurysm Has a counselor and psychiarist. No current meds. Supervision of high-risk , unspecified trimester 02/13/2018 Overview (05/17/2018): Primary problem: truncus vs DORV. S/p ruptured cerebral aneurysm clipped 2014 Past OB history: . Term x 2 1996 and 1997, healthy girls Planned mode of delivery: TBD. Plans MRI in [place] Planned date/GA of delivery: Important issues for people to know: GA (weeks) Cervix (cm) EFW (gm) EFW %ile AC%ile AFV/UA Dopplers Other/NST/BPP 27.1 >3 904 10 26 34.1 >3 1880 4 10 Nl dppl 11/16 37.1 11/16 Yes No Declined, NA First and Second Trimester Initial labs reviewed Pap up to date LR S/p LEEP 2016. Normal pap since then Risk of diabetes due to BMI>30,prior GDM or LGA LR Failed early glt, normal gtt Risk of PET due to chronic HTN or prior PET LR Risk of PTB due to prior PTB, CI LR Prior uterine surgery other than LTCS LR Depression or DV screen positive H/o depression no current meds. Has therapist and psychiatrist Aneuploidy screening reviewed LR Neg NIPT. Low risk 22q deletion Genetic carrier screening reviewed Third trimester Rhogam indicated Third trimester hematocrit <32 Flu shot given RONY TDaP given RONY GBS positive COAL LOADER At primary OB Risk of intrapartum bleeding due to previa, accreta, >3 D+Cs, h/o PPH, bleeding d/o RONY feeding plan reviewed RONY BF Other Elevated risk for depression Recommend 6 week GTT Recommend pap Other Comments: Assessment & Plan (05/17/2018 3:06 PM EST): Boyce - tx at 27 weeks Ob Hx: G1: G2: G3: Present TET: NIPT was neg - low risk for 22q deletion. Declined amnio. Seen at [facility] S/p rupture of cerebral aneurysm Clipping in 2014. Followed by neurology in [facility]. Will have MRI 04/28 - to bring results LEEP x1 Cvx unremarkable in this FWB: Reassuring us given noted cardiac lesion - IUGR now 4%tile. Nl dopplers. -Recommended 2x per weekly testing - REassuring u/s today Mode Vaginal Assessment & Plan (04/26/2018 11:06 AM EST): Boyce - tx at 27 weeks Ob Hx: G1: G2: G3: Present TET: NIPT was neg - low risk for 22q deletion. Declined amnio. Seen at [facility] S/p rupture of cerebral aneurysm Clipping in 2014. Followed by neurology in [facility]. Will have MRI 04/28 - to bring results LEEP x1 Cvx unremarkable in this FWB: Reassuring us given noted cardiac lesion - IUGR now 4%tile. Nl dopplers. -Recommended 2x per weekly testing Mode Vaginal Assessment & Plan (03/08/2018 11:54 AM EST): Boyce - tx at 27 weeks Ob Hx: G1: G2: G3: Present TET: NIPT was neg - low risk for 22q deletion. Declined amnio. Seen at [facility] S/p rupture of cerebral aneurysm Clipping in 2014. Followed by neurology in [facility]. Will have MRI done LEEP x1 - Cvx unremarkable in this FWB: Reassuring us given noted cardiac lesion - IUGR at 10%tile. Nl dopplers. Mode Vaginal History of loop electrosurgi kandis excision procedure (LEEP) of cervix 02/13/2018 Overview (02/13/2018): 2017 Immunizations Immunization Administration Dates Next Due Influenza, Unspecified Formulation 01/25/2018 Tdap 02/28/2018 Family History Medical History Relation Comments Prostate cancer Father Arthritis Mother Atrial fibrillation Mother Relation Status Comments Father Mother Social [...] Not on file Not on sidney e Last Filed Vital Signs Vital Sign Reading Time Taken Comments Blood Pressure 120/90 07/10/2018 2:57 PM EDT Pulse 73 06/02/2018 7:34 AM EST Temperature 36.3 C (97.3 F) 06/02/2018 7:34 AM EST Respiratory Rate 18 06/02/2018 7:34 AM EST Oxygen Saturation 98% 06/02/2018 7:34 AM EST Inhaled Oxygen Concentration - - Weight 85.9 kg (189 lb 6.4 oz) 07/10/2018 2:57 P M EDT Height 170.2 cm (5' 7 ) 05/30/2018 7:46 AM EST Body Mass Index 29.66 05/30/2018 7:46 AM EST Plan of Treatment Health Maintenance Due Date Last Done Comments LIPID PANEL 1976 DEPRESSION SCREENING 05/11/2019 05/11/2018 PAP SMEAR 07/10/2021 07/10/2018, 07/10/2018, 07/10/2018 COLOGUARD 2021 COLONOSCOPY 2021 COLORECTAL CANCER SCREENING 2021 FIT TEST 2021 FOBT 2021 SIGMOIDOSCOPY 2021 VIRTUAL COLONOSCOPY 2021 INFLUENZA VACCINE (#1) 2024 , 02/19/2016 COVID-19 VACCINE (2024-2 6 season) 2024 09/22/2020, 08/21/2020 MAMMOGRAM 12/28/2024 12/28/2022 Adult Td,Tdap Booster 02/29/2028 02/28/2018 , 09/09/2016 HEPATITIS C SCREENING Completed 03/08/2018 HIV ONE-TIME SCREENING (18-6 5 YEARS) Completed 03/08/2018 SMOKING STATUS SCREENING (On ce After 26 Yrs) Completed 05/17/2018 HEPATITIS A VACCINES Aged Out No long er eligible based on patient's age to complete this topic HIB VACCINES Aged Out No longer eligi ble based on patient's age to complete this topic MENINGOCOCCAL VACCINES (ACWY) Aged Out No longer eligible based on patient's age to complete this topic MENINGOCOCCAL VACCINES (B) Aged Out N o longer eligible based on patient's age to complete this topic PNEUMOCOCCAL VACCINES (0-49 years) Aged Out No longer eligible b ased on patient's age to complete this topic Medical Devices Not on file Procedures Procedure Name Priority Date/Time Associated Diagnosis Comments PAP TEST Routine 07/10/2018 12:00 AM EDT HEPATITIS C ANTIBODY, QUALITATIVE Routine 03/08/2018 1:03 PM EST , supervision, high-risk from Last 3 Months or Most Recently Relevant to Health Maintenance Results * Pap Smear (07/10/2018 12:00 AM EDT) 07/10/2018 07/11/2018 Narrative [facility] - 07/20/2018 11:45 AM EDT CASE: [id number] PATIENT: BRIA BOYCE [facility] Department of Pathology [address] [place] [address] CLIA License No.: [id number] Unarmed Security Officer: Dr. Eugene Bryson Physician: SUKI STRE[address] PA-C Procedure Date: 07/10/2018 Automotive Service Consultant: MARTIN Barton (ASCP) SIGN FABRICATOR Molecular Addendum THINPREP PAP TEST, CERVICAL FINAL CYTOLOGIC INTERPRETATION SPECIMEN ADEQUACY: Satisfactory for evaluation. QUALITY INDICATORS: Endocervical/transformation zone component absent/insufficient. INTERPRETATION: NEGATIVE FOR INTRAEPITHELIAL LESION OR MALIGNANCY. AUTOMATED REVIEW: This specimen was prescreened using the ThinPrep Imaging System. CLINICAL DATA LMP: Unknown; Post-; history of abnormal pap TOTAL SLIDES 1 PROCEDURES Screening or High Risk ThinPrep with Auto Pre-Screen - [facility] 1 Final Diagnosis by Nii SALAZAR(ASCP), Electronically signed on Tuesday July 17, 2018 at 02:41:23PM ADDENDUM HPV TEST: Negative for messenger RNA (mRNA) of the high-risk human papillomavirus (HPV) types 16, 18, 31, 33, 35, 39, 45, 51, 52, 56, 58, 59, 66, and 68 by Aptima HPV assay. [facility] [place] [address] CLIA License #: [id number] Unarmed Security Officer: Chun Aguirre MD Final Diagnosis by Nii SALAZAR([facility]), on Tuesday July 17, 2018 at 02:41:23PM HPV Addendum by Lewis SAMANIEGO ([facility]), Electronically signed on July at 11:44:55AM us Suki Street PA-C CYTOLOGY ORDERABLES Edited Resu lt - Final Performing Organization Address City/[facility]/ZIP Co de Phone Number [facility] [address] [place] [phone] * Hepatitis C antibody, qualitative (03/08/2018 1:03 PM EST) HCV Nonreactive Nonreactive [facility] 03/08/2018 1:03 PM EST 03/08/2018 1:43 PM EST us Presley Baig MD, PhD LAB BLOOD ORDWanda DUNCAN Final Result Performing Organization Address City/[facility]/ZIP Co de Phone Number [facility] [address] [place] [phone] from Last 3 Months or Most Recently Relevant to Health Maintenance Insurance [employer] ONE CARE MEDICARE [place] [address] [place] [address] [address] CARE MEDICARE [address] [place] [address] CARE MEDICARE REPLACEMENT CARE MEDICARE REPLACEMENT CARE MEDICARE REPLACEMENT CARE MEDICARE REPLACEMENT ONE CARE MEDICARE REPLACEMENT MEDICARE REPLACEMENT Advance Directives For more information, please contact: [phone] (9AM - 5PM [place], Tuesday-Tuesday) * Full Code (Presumed) (Latest Code Status on File) Date Activated Date Inactivated Comments 05/31/2018 12:19 AM 06/02/2018 1:10 PM * Full Code (Presumed) Date Activated Date Inactivated Comments 05/30/2018 9:27 AM 05/31/2018 12:19 AM Care Teams Associate Professor Of Literacy Relationship Specialty Start Date End Date Waldo Thakkar MD [address] [place] [address] [address] [place] [address] [email or web address] PCP - General Internal Medicine 03/06/18 Additional Source Comments The information contained in this document represents components of the legal health record. It is not the complete legal health record.[facility]
--- OUTSIDE RECORDS SUMMARY | 2024-12-25 13:24 | XMS_ITS | Clinical Summary ---
Author Organization [facility] Address [address] [place] [address] Phone Care Team Providers Care Hyperbaric Welder Diver Name Role Phone Waldo Thakkar MD Primary [...] 05/10/2023 Social Influencers of Health Screening 05/10/2023 Depression Screening 04/11/2024 COVID-19 Vaccine (3 - 2024-2 6 season) 2024 09/22/2020, 08/21/2020 Influenza Vaccine (#1) 2024 8, 01/09/2018, 02/19/2016 Hypertension/CHF/CAD Annual BMP Blood Test [...] and At-Risk Patients (6 to 49 Years) Aged Out No longer eligible b ased on patient's age to complete this topic RSV Immunization Patients Under 20 months Aged Out No longer eligible b ased on patient's age to complete this topic Varicella Vaccines Aged Out No longer eligible based on patient's age to complete this topic Insurance [facility] MEDICARE Member Subscriber Plan / Payer (Ef fective 2018-Present) Name:Denise Boyce Relation to Subscriber:Self Name:Denise Boyce Payer ID:[id number] Group ID:[id number] Type:Not on file Address: [address] [phone] Care Teams Hyperbaric Welder Diver Relationship Specialty Start Date End Date Waldo Thakkar MD [address] [place] [address] PCP - General Internal Medicine 05/08/24
--- OUTSIDE RECORDS SUMMARY | 2024-12-25 13:24 | XMS_ITS | Clinical Summary ---
Author Organization [facility] Address [address] [place] [address] Phone Care Team Providers Care Forensic Document Examiner Name Role Phone Waldo Cullen MD Primary [...] of 2 - PCV) 12/03/1995 Influenza Vaccine (#1) 2024 01/25/2018 Insurance [facility] One Care Dual SNP ([id number]) [address] [id number] [facility] One Care Dual SNP ([id number]) Care Teams Forensic Document Examiner Relationship Specialty Start Date End Date Waldo Cullen MD PCP - General Internal Medicine 10/07/21
== END 2024-12-25 11:16 | disposition home or self-care (01) ==
LOC: HO.HSM 10:14
PROVIDERS: PCP Internal Medicine; Referring Provider Internal Medicine; Visit Provider Nurse Practitioner
DX: G43.709 Chronic migraine without aura, not intractable, without status migrainosus (principal); R51.9 Headache, unspecified
CPT/HCPCS: 99204

== ENCOUNTER 2024-12-25 15:11 | Outpatient (REF) | payer OTHER, SELFPAY ==
--- NOTE | ~2024-12-25 | US_ITS ---
EXAMINATION: US PELVIS CLINICAL INFORMATION: N83.299 - Other ovarian cyst, unspecified side COMPARISON: August 23, 2024 TECHNIQUE: Ultrasound of the pelvis is performed using both transabdominal and transvaginal transducers along with Doppler. Transvaginal imaging is performed due to inadequate visualization transabdominally. FINDINGS: Uterus: Hysterectomy Adnexa: There is no right ovarian torsion. There is no pelvic ascites or fluid collection. Right ovary measures 3.8 x 1.9 x 20 cm. Again noted are multiple ovarian cysts. The largest measures 17 mm and contains a thin septation. Left ovary is not visualized. US/US pelvic and transvaginal IMPRESSION: Persistent indeterminate left ovarian cyst with a septation 17 mm in diameter and likely decreased in size since the prior. Recommend either continued follow-up ultrasound with next Ultrasound in 6-12 weeks or MRI pelvis. Electronically signed by: Dean Kitchen MD 12/25/2024 03:56 PM EDT
== END 2024-12-25 15:12 | disposition home or self-care (01) ==
LOC: HO.US 15:11
PROVIDERS: PCP Internal Medicine; Visit Provider Obstetrics & Gynecology
DX: N83.299 Other ovarian cyst, unspecified side (principal)
CPT/HCPCS: 76830; 76856; 99202

== ENCOUNTER → 2024-12-25 15:13 | Outpatient (BNV) | payer OTHER, SELFPAY | PROVIDERS: PCP Internal Medicine; Visit Provider Radiology Diagnostic Radiology | DX: N83.202 Unspecified ovarian cyst, left side (principal) | CPT/HCPCS: 76830; 76856 ==

== ENCOUNTER 2025-01-02 09:42 | Outpatient (AMB) | payer OTHER, SELFPAY ==
--- OUTSIDE RECORDS SUMMARY | 2018-03-08 11:00 | XMS_ITS | Encounter Summary ---
Author Organization [facility] Address [address] [address] Phone Care Team Providers Care Small Business Sales Representative Name Role Phone Waldo Thakkar MD Primary Care Provide r Encounter Details Date Type Department Care Team (Late st Contact Info) Description 03/08/2018 10:00 AM EST Hospital Encounter [facility] OB Ultrasound [address] [place] [address] Presley Baig MD, PhD [address] [place] [address] [email or web address] Social History Tobacco Use Types Packs/Day Years Used Date Smoking Tobacco: Never Smokeless Tobacco: Never Alcohol Use Standard Drinks/Week Comments No 0 (1 standard drink = 0.6 oz pur e alcohol) Education Answer Date Recorded Are you interested in more education? Not on sidney e 08/06/2022 Are you concerned about learning? Not on file 08/06/2022 No 08/06/2022 No 08/06/2022 Digital Access Answer Date Recorded No 09/03/2022 No 09/03/2022 No 09/03/2022 Reliable internet access at home? Not on file 09/03/2022 Device with a working camera? Not on file Comments No Sex and Gender Information Value Date Recorded Sex Assigned at Not on file Legal Sex Female 9:43 AM EDT Gender Identity Not on file Sexual Orientation Not on file Occupation Industry Job Start Date Job End Date at home. disabled Not on file Not on file Not on sidney e documented as of this encounter Plan of Treatment Not on file documented as of this encounter Procedures Procedure Name Priority Date/Time Associated Diagnosis Comments US OB GREATER THAN OR EQUAL TO 14 WEEKS ANATOMICAL DETAILED SURVEY Routine 03/08/2018 11:25 AM EST documented in this encounter Results * US OB GREATER THAN OR EQUAL TO 14 WEEKS ANATOMICAL DETAILED SURVEY (03/08/2018 11:25 AM EST) Anatomical Region Laterality Modality Abdomen, Pelvis, Uterus/Adnexa U ltrasound 03/08/2018 Narrative 03/08/2018 11:59 AM EST TEST PERFORMED: OB Ultrasound >14 weeks detailed (13698) INDICATION/REASON FOR TESTS: Advanced maternal age I. REPORT Gestational Age (based on EDC): 27.1 weeks [27 weeks and 1 day] (EDC 06/06) Estimated Weight: 904 gms +/- 153 gms [1 lbs and 15 oz] Weight Percentile for Gestational Age: 10%ile STATUS: Alive NUMBER: [place] POSITION: Breech ACTIVITY: Present AMNIOTIC FLUID: Normal Volume PLACENTA: Anterior, Not Previa UMBILICAL CORD: 3VC, Normal placental insertion CERVIX: Normal, >3 cm in length and no funneling UMBILICAL ARTERY DOPPLER: Normal waveform OVARIES: Right normal, Left not seen Anatomy HEAD: Normal intracranial anatomy, including brain and ventricles SPINE: Unevaluable FACE: Normal NECK/THORAX: Normal HEART: Abnormal ABDOMEN,GI: Normal, Stomach Seen ABDOMEN,: Normal, Bladder Seen ABDOMEN,MISC: Normal VENTRAL WALL: Normal umbilical cord insertion EXTREMITIES: All 4 normal in size and appearance REASON FOR UNEVALUABLE STRUCTURES: position Comments/Summary Known tetralogy of Fallot. II. MEASUREMENTS (mm) AND CALCULATIONS BPD 64 OFD 92 AD 70.5 FL 45 HC 256 AC 221.5 (26%ile) HC/AC 1.16 (Normal range: 1.01 - 1.21) Basis for GA GA Estimate (wks) BPDc 27.4 BPD 25.7 FL 24.4 EDC 06/06 27.1 Procedure Note Raiza Espinoza MD - 03/08/2018 TEST PERFORMED: OB Ultrasound >14 weeks detailed (38771) INDICATION/REASON FOR TESTS: Advanced maternal age I. REPORT Gestational Age (based on EDC): 27.1 weeks [27 weeks and 1 day] (EDC 06/06) Estimated Weight: 904 gms +/- 153 gms [1 lbs and 15 oz] Weight Percentile for Gestational Age: 10%ile STATUS: Alive NUMBER: [place] POSITION: Breech ACTIVITY: Present AMNIOTIC FLUID: Normal Volume PLACENTA: Anterior, Not Previa UMBILICAL CORD: 3VC, Normal placental insertion CERVIX: Normal, >3 cm in length and no funneling UMBILICAL ARTERY DOPPLER: Normal waveform OVARIES: Right normal, Left not seen Anatomy HEAD: Normal intracranial anatomy, including brain and ventricles SPINE: Unevaluable FACE: Normal NECK/THORAX: Normal HEART: Abnormal ABDOMEN,GI: Normal, Stomach Seen ABDOMEN,: Normal, Bladder Seen ABDOMEN,MISC: Normal VENTRAL WALL: Normal umbilical cord insertion EXTREMITIES: All 4 normal in size and appearance REASON FOR UNEVALUABLE STRUCTURES: position Comments/Summary Known tetralogy of Fallot. II. MEASUREMENTS (mm) AND CALCULATIONS BPD 64 OFD 92 AD 70.5 FL 45 HC 256 AC 221.5 (26%ile) HC/AC 1.16 (Normal range: 1.01 - 1.21) Basis for GA GA Estimate (wks) BPDc 27.4 BPD 25.7 FL 24.4 EDC 06/06 27.1 Presley Baig MD, PhD [facility] Final Result documented in this encounter Visit Diagnoses Not on filedocumented in this encounter Care Teams Small Business Sales Representative Relationship Specialty Start Date End Date Waldo Thakkar MD [address] [place] [address] [address] [place] [phone] [email or web address] PCP - General Internal Medicine 03/06/18 documented as of this encounter Additional Source Comments The information contained in this document represents components of the legal health record. It is not the complete legal health record.[facility]
--- OUTSIDE RECORDS SUMMARY | 2018-05-17 13:46 | XMS_ITS | Encounter Summary ---
Author Organization [facility] Address [address] [address] Phone Care Team Providers Care Rubber Goods Supervisor Name Role Phone Waldo Thakkar MD Primary Care Provide r Encounter Details Date Type Department Care Team (Late st Contact Info) Description 05/17/2018 12:46 PM EST Hospital Encounter [facility] and Women[facility] OB Ultrasound [address] [place] [address] Ana Morrissey PA-C [address] [place] [address] [email or web address] Social History Tobacco Use Types Packs/Day Years [...] 1:42 PM EST TESTS PERFORMED: Biophysical profile ([id number]) Umbilical artery Doppler (08292) INDICATIONS/REASONS FOR TESTS: Abnormal finding heart anomaly [...] MD - 05/17/2018 TESTS PERFORMED: Biophysical profile ([id number]) Umbilical artery Doppler (34002) INDICATIONS/REASONS FOR TESTS: Abnormal finding heart anomaly [...] documented as of this encounter Care Teams Rubber Goods Supervisor Relationship Specialty Start Date End Date Waldo Thakkar MD [address] [place] [address] [address] [place] [phone] [email or web address] PCP - General Internal Medicine 03/06/18 documented as of this encounter Additional Source Comments The information contained in this document represents components of the legal health record. It is not the complete legal health record.[facility]
--- NOTE | 2025-01-02 09:56 | MHC.OFFVIS ---
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 Complaining of left axillary mass that has been growing over the last year, the patient was sent to general surgery a year ago for a consult, the recommendation was to call if symptoms worsen Last Pap/HPV was negative in 09/29, no history of abnormal Pap smear, the patient is status post hysterectomy for EIN in 2020 Last Mammogram was in 02/01 BI-RADS 2 Last colonoscopy was done in 06/0412/25/2024 pelvic ultrasound showed the following: Uterus: Hysterectomy Adnexa: There is no right ovarian torsion. There is no pelvic ascites or fluid collection. Right ovary measures 3.8 x 1.9 x 20 cm. Again noted are multiple ovarian cysts. The largest measures 17 mm and contains a thin septation. Left ovary is not visualized Pelvic ultrasound done on 08/23/2024 showed the following: Uterus: The uterus is surgically absent. Right ovary: The right ovary measures 3.6 x 2.8 x 2.2 cm. There are multiple right ovarian cysts, the largest of which measures 2.3 x 1.8 x 2.2 cm. There is a 2.1 x 1.6 x 1.8 cm complex appearing cysts with internal septations and echoes. Left ovary: The left ovary measures 3.6 x 2.1 x 1.8 cm. There is a 1.8 cm left ovarian cyst. Pelvic fluid: none. US/US pelvic and transvaginal IMPRESSION: Multiple bilateral ovarian cysts are noted including a 2.1 cm complex appearing right-sided cyst. Follow-up is recommended to document resolution. 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, low grade (MORIS 1) HTN (hypertension) Surgical History Hx of colonoscopy H/O brain surgery H/O knee surgery History of hysterectomy History of bilateral tubal ligation H/O LEEP Family History Father Colon cancer Mother HTN (hypertension) Social History Household Members: Family Housing: House Alcohol intake: never Patient Tobacco Use Status: Former Tobacco user Years Smoked: 10 service: No Current occupational status: unemployed Sexual orientation: Straight/Heterosexual Gender identity: Female Female Reproductive History Menstrual Age of Menarche: 13 Menopause type: surgical Total pregnancies: 3 Full term: 3 Number of Living Children: 3 Date of last pap smear: 10/02/20 (negative papsmear, negative hpv ) Date of Mammogram: 01/17/24 (bi rad 2) Review of Systems Const All systems reviewed & are unremarkable except as noted in HPI and below Card Reports as per HPI and Reports no additional complaints Resp Reports as per HPI and Reports no additional complaints GI Reports as per HPI and Reports no additional complaints Reports as per HPI Physical Exam Vital Signs: BMI result Body Mass Index 28.7 Const General: cooperative, healthy appearing and comfortable General: Yes bladder normal to palpation External Female Exam: No lesion Speculum Exam - Vagina: normal appearance of the vagina, normal vaginal discharge and not erythematous Speculum Exam - Cervix: Cervix absent Bimanual exam- vagina & uterus: bladder normal to palpation and uterus absent Bimanual Exam- Adnexa, other: Other (No masses detected) Assessment & Plan Assessment & Plan (1) Well woman exam: Comment: MORIS 3 in 2016 status post LEEP with positive margin Status post hysterectomy Code(s): Z01.419 - Encounter for gynecological examination (general) (routine) without abnormal findings Category: Medical Plan: Vaginal co testing taken Mammogram scheduled in few days Counseled the patient about the recommended dietary allowance of 1000 mg of Calcium & 600 IU of vitamin D. The patient was instructed to perform monthly self-breast exams and to schedule an annual exam in a year; All questions answered and the patient verbalized understanding. Instructed the patient to schedule annual exam in a year (2) Complex ovarian cyst: Comment: Persistent since 09/02 Code(s): N83.299 - Other ovarian cyst, unspecified side Category: Medical Plan: Discussed with the patient the finding on pelvic ultrasound, persistent complex ovarian cyst. Will order ovarian cancer tumor markers including CA 125, CEA, see a 19-9, LDH, inhibin and alpha fetoprotein and Refer to [facility] for a consult Orders: Orders HPV High risk Today Z01.419 - Encounter for gynecological examination (general) (routine) without abnormal findings Carcinoembryonic Antigen Today N83.299 - Other ovarian cyst, unspecified side Alpha Fetoprotein Today N83.299 - Other ovarian cyst, unspecified side CA-125 Today N83.299 - Other ovarian cyst, unspecified side Inhibin A Today N83.299 - Other ovarian cyst, unspecified side Inhibin B Today N83.299 - Other ovarian cyst, unspecified side Pap Smear Today Z01.419 - Encounter for gynecological examination (general) (routine) without abnormal findings Carbohydrate Antigen 19-9 Today N83.299 - Other ovarian cyst, unspecified side Lactate Dehydrogenase Today N83.299 - Other ovarian cyst, unspecified side Referrals Gynecologic Oncology Referral N83.299 - Other ovarian cyst, unspecified side Coding Level of Care Code Est Pt Level 3 (26060) Est Pt Prev Care 18-39y(69503) Diagnoses Well woman exam Z01.419 Complex ovarian cyst N83.299
[2025-01-02 09:58] VITALS: BP 138/92; BMI 28.7
--- OUTSIDE RECORDS SUMMARY | 2025-01-02 11:45 | XMS_ITS | Encounter Summary ---
Author Organization [facility] Address [address] [place] [address] Phone Care Team Providers Care Biomass Plant Manager Name Role Phone Waldo Thakkar MD Primary Care Provide r Encounter Details Date Type Department Care Team (Late st Contact Info) Description 03/23/2018 Ancillary Orders [facility] Maternal Medicine [address] [place] [address] Presley Baig MD, PhD [address] [place] [address] [email or web address] , supervision, high-risk Social History Tobacco Use [...] on file Not on file Not on sideny e documented as of this encounter Plan of Treatment Not on file documented as of this encounter Results * US OB GREATER THAN OR EQUAL TO 14 WEEKS ANATOMICAL COMPLETE SURVEY WITH DOPPLER (03/23/2018 11:53 AM EST) Anatomical Region Laterality Modality Abdomen, Pelvis, Uterus/Adnexa U ltrasound 03/23/2018 Narrative 03/23/2018 12:11 PM EST TESTS PERFORMED: OB Ultrasound >14 weeks complete (40467) Biophysical profile (90426) Umbilical artery Doppler (65190) INDICATIONS/REASONS FOR TESTS: Abnormal finding heart anomaly [...] TESTS PERFORMED: OB Ultrasound >14 weeks complete (31712) Biophysical profile (37920) Umbilical artery Doppler (54938) INDICATIONS/REASONS FOR TESTS: Abnormal finding heart anomaly [...] high-risk documented in this encounter Care Teams Biomass Plant Manager Relationship Specialty Start Date End Date Waldo Thakkar MD [address] [place] [address] [address] [place] [phone] [email or web address] PCP - General Internal Medicine 03/06/18 documented as of this encounter Additional Source Comments The information contained in this document represents components of the legal health record. It is not the complete legal health record.[facility]
--- OUTSIDE RECORDS SUMMARY | 2025-01-02 11:45 | XMS_ITS | Clinical Summary ---
Author Organization [facility] Address [address] [place] [address] Phone Care Team Providers Care Credit Administration Officer Name Role Phone Waldo Cullen MD [...] One Care Dual SNP ([id number]) [place] [phone] [facility] One Care Dual SNP (A2793) Care Teams Credit Administration Officer Relationship Specialty Start Date End Date Waldo Cullen MD PCP - General Internal Medicine 10/07/21
--- OUTSIDE RECORDS SUMMARY | 2025-01-02 11:45 | XMS_ITS | Encounter Summary ---
Author Organization [facility] Address [address] [place] [address] Phone Care Team Providers Care Cheese Blender Name Role Phone Waldo Cullen MD Primary Care Provider Unav ailable Encounter Details Date Type Department Care Team (Late st Contact Info) Description 02/11/2022 Documentation Only [facility] [address] [place] [phone] Leatha Alicia Social History Tobacco Use Types [...] on filedocumented in this encounter Care Teams Cheese Blender Relationship Specialty Start Date End Date Waldo Cullen MD PCP - General Internal Medicine 10/07/21 documented as of this encounter
--- OUTSIDE RECORDS SUMMARY | 2025-01-02 11:45 | XMS_ITS | Clinical Summary ---
Author Organization [facility] Address [address] [place] [address] Phone Care Team Providers Care Parts Sales Counterperson Name Role Phone Waldo Thakkra MD Primary Care Provi donavan Allergies No [...] patient's age to complete this topic Insurance [facility] MEDICARE Member Subscriber Plan / Payer (Ef fective 2018-Present) Name:Denise Boyce Relation to Subscriber:Self Name:Denise Boyce Payer ID:[id number] Group ID:[id number] Type:Not on file Address: [address] [place] [phone] Care Teams Parts Sales Counterperson Relationship Specialty Start Date End Date Waldo Thakkar MD [address] [place] [address] PCP - General Internal Medicine 05/08/24
--- OUTSIDE RECORDS SUMMARY | 2025-01-02 11:45 | XMS_ITS | Patient Health Record ---
Author Organization 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 Problem Aneurysm (13048502) Aneurysm (I72.9) Active confirmed Plan Of Treatment No Information Insurance Providers Payer Name Payer Address Payer Phone Subscriber Number Group Number Insured Name Patient Relationship to Insured Coverage Start Date Coverage End Date [facility] [id number] [place] [phone] [id number] Denise Boyce Self - patient is the insured [facility] [address] [place] [address] [id number] Denise Boyce Self - patient is the insured Medical (General) History Surgical History Surgery Date(Month/Year) Therapies; 2014-10-17 None listed; 2014-10-17
--- OUTSIDE RECORDS SUMMARY | 2025-01-02 11:46 | XMS_ITS | Clinical Summary ---
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 Followed by neuro at [place]. Dr Henderson last MRI approx 2015. Plan [...] mode of delivery: TBD. Plans MRI in [place] Planned date/GA of delivery: Important issues for [...] given RONY TDaP given RONY GBS positive QUILT SEWER At primary OB Risk of intrapartum bleeding [...] for 22q deletion. Declined amnio. Seen at [facility] S/p rupture of cerebral aneurysm Clipping in 2014. Followed by neurology in [facility]. Will have MRI 04/28 - to [...] for 22q deletion. Declined amnio. Seen at [facility] S/p rupture of cerebral aneurysm Clipping in 2014. Followed by neurology in [facility]. Will have MRI 04/28 - to [...] for 22q deletion. Declined amnio. Seen at [facility] S/p rupture of cerebral aneurysm Clipping in 2014. Followed by neurology in [facility]. Will have MRI done LEEP x1 [...] (07/10/2018 12:00 AM EDT) 07/10/2018 07/11/2018 Narrative [facility] - 07/20/2018 11:45 AM EDT CASE: [id number] PATIENT: BRIA BOYCE [facility] Department of Pathology [address] [place] [address] CLIA License No.: [id number] Opera Singer: Dr. Eugene Bryson Physician: SUKI STREET PA-C Procedure Date: 07/10/2018 Material Stockkeeper Yard: MARTIN Barton (ASCP) SCREW MACHINE OPERATOR Molecular Addendum THINPREP PAP TEST, CERVICAL FINAL CYTOLOGIC INTERPRETATION SPECIMEN ADEQUACY: Satisfactory for evaluation. QUALITY INDICATORS: Endocervical/transformation zone component absent/insufficient. INTERPRETATION: NEGATIVE FOR INTRAEPITHELIAL LESION OR MALIGNANCY. AUTOMATED REVIEW: This specimen was prescreened using the ThinPrep Imaging System. CLINICAL DATA LMP: Unknown; Post-; history of abnormal pap TOTAL SLIDES 1 PROCEDURES Screening or High Risk ThinPrep with Auto Pre-Screen - [facility] 1 Final Diagnosis by Nii SALAZAR(ASCP), Electronically signed on Tuesday July 17, 2018 at 02:41:23PM ADDENDUM HPV TEST: Negative for messenger RNA (mRNA) of the high-risk human papillomavirus (HPV) types 16, 18, 31, 33, 35, 39, 45, 51, 52, 56, 58, 59, 66, and 68 by Aptima HPV assay. [facility] Molecular Diagnostics & Histocompatibility [place] [address] CLIA License #: [id number] Opera Singer: Chun Aguirre MD Final Diagnosis by Nii SALAZAR([facility]), on Tuesday July 17, 2018 at 02:41:23PM HPV Addendum by Lewis SAMANIEGO ([facility]), Electronically signed on July at 11:44:55AM us Suki Street PA-C CYTOLOGY ORDERABLES Edited Resu lt - Final Performing Organization Address City/[facility]/ZIP Co de Phone Number [facility] [address] [place] [phone] * Hepatitis C antibody, qualitative (03/08/2018 1:03 PM EST) HCV Nonreactive Nonreactive [facility] 03/08/2018 1:03 PM EST 03/08/2018 1:43 PM EST us Presley Baig MD, PhD LAB BLOOD ORDWanda DUNCAN Final Result Performing Organization Address City/[facility]/ZIP Co de Phone Number [facility] [address] [place] [phone] from Last 3 Months or Most Recently Relevant to Health Maintenance Insurance [employer] ONE CARE MEDICARE REPL[place] [address] [place] [address] [place] [place] [address] [address] [place] [address] [place] [address] CARE MEDICARE REPLACEMENT CARE MEDICARE REPLACEMENT CARE MEDICARE REPLACEMENT CARE MEDICARE REPLACEMENT ONE CARE MEDICARE REPLACEMENT MEDICARE REPLACEMENT Advance Directives For more information, please contact: [phone] (9AM - 5PM [place], Tuesday-Tuesday) * Full Code (Presumed) (Latest Code Status on File) Date Activated Date Inactivated Comments 05/31/2018 12:19 AM 06/02/2018 1:10 PM * Full Code (Presumed) Date Activated Date Inactivated Comments 05/30/2018 9:27 AM 05/31/2018 12:19 AM Care Teams Bowl Sander Relationship Specialty Start Date End Date Waldo Thakkar MD [address] [place] [address] [address] [place] [address] [email or web address] PCP - General Internal Medicine 03/06/18 Additional Source Comments The information contained in this document represents components of the legal health record. It is not the complete legal health record.[facility]
--- OUTSIDE RECORDS SUMMARY | 2025-01-02 11:46 | XMS_ITS | Encounter Summary ---
Author Organization [facility] Address [address] [place] [address] Phone Care Team Providers Care Web Portal Developer Name Role Phone Waldo Thakkar MD Primary Care Provide r Encounter Details Date Type Department Care Team (Late st Contact Info) Description 05/31/2018 Procedure Pass [facility] CWN [address] [place] [address] Social History Tobacco Use Types Packs/Day Years [...] documented as of this encounter Care Teams Web Portal Developer Relationship Specialty Start Date End Date Waldo Thakkar MD [address] [place] [address] [place] [phone] PCP - General Internal Medicine 03/06/18 documented as of this encounter Additional Source Comments The information contained in this document represents components of the legal health record. It is not the complete legal health record.[facility]
== END 2025-01-02 10:32 | disposition home or self-care (01) ==
LOC: HO.HWS 09:42
PROVIDERS: PCP Internal Medicine; Visit Provider Obstetrics & Gynecology
DX: N83.291 Other ovarian cyst, right side (principal); N83.292 Other ovarian cyst, left side; Z01.419 Encounter for gynecological examination (general) (routine) without abnormal findings
CPT/HCPCS: 99213; 99459; G0101; Q0091

== ENCOUNTER 2025-01-02 09:42 | Outpatient (REF) | payer OTHER, SELFPAY ==
[2025-01-02 12:46] LABS: Carcinoembryonic Antigen < 1.73 ng/mL
--- OUTSIDE RECORDS SUMMARY | 2025-01-02 13:06 | XMS_ITS | Encounter Summary ---
Author Organization [employer] Address [address] [place] [address] [address] [place] [address] Care Team Providers Care Microfilm Machine Operator Name Role Phone Waldo Bonner MD Primary Care Provide r Encounter Details Date Type Department Care Team (Late st Contact Info) Description 01/05/2023 Orders Only [facility] [address] [place] [address] Provider, MD Baron Social History Tobacco Use [...] filedocumented in this encounter Care Teams Microfilm Machine Operator Relationship Specialty Start Date End Date Waldo Bonner MD [address] [place] [address] PCP - General Internal Medicine 03/27/15 documented as of this encounter
--- OUTSIDE RECORDS SUMMARY | 2025-01-02 13:06 | XMS_ITS | Encounter Summary ---
Author Organization [employer] Address [address] [place] [address] [address] [place] [address] Care Team Providers Care Sack Sewer Name Role Phone Waldo Bonner MD Primary Care Provide r Encounter Details Date Type Department Care Team (Late st Contact Info) Description 01/02/2025 Orders Only GENERIC EXTERNAL DATA DEPARTMENT Provider, Generic External Data Social History Tobacco Use Types Packs/Day Years [...] Procedure Name Priority Date/Time Associated Diagnosis Comments LD Routine 01/02/2025 11:01 AM EDT CEA Routine 01/02/2025 11:01 AM EDT documented in this encounter Results * Lactate Dehydrogenase (LD) (01/02/2025 11:01 AM EDT) Lactate Dehydrogenase 175 122 - 220 U/L [facility] 01/02/2025 11:0 1 AM EDT 01/02/2025 11:01 AM EDT us Generic External Data Provider LAB BLOOD ORDERAB LES Final Result [facility] [address] [place] [phone] * CEA (01/02/2025 11:01 AM EDT) Carcinoembryonic Antigen <1.73 ng/mL [facility] Comment:CEA Reference Range: 93.4% Non-Smokers = 0.0-3.0 ng/mL 95.6% Smokers = 0.0-5.0 ng/mLCEA Methodology: Szymanski Alinity i ChemiluminescentMicroparticle Immunoassay (CMIA)CEA testing can have significant value in monitoring ofpatients with diagnosed malignancies in whom changingconcentrations of CEA are observed. Values obtained withdifferent assay methods cannot be used interchangeably. 01/02/2025 11:0 1 AM EDT 01/02/2025 11:01 AM EDT us Generic External Data Provider LAB BLOOD ORDERAB LES Final Result [facility] [address] [place] [phone] documented in this encounter Visit Diagnoses Not on filedocumented in this encounter Additional Health Concerns Assessment Noted Time PHQ-9 Depression Total Score: 0 11/15/19 24 12:56 PM EDT documented as of this encounter Care Teams Sack Sewer Relationship Specialty Start Date End Date Waldo Bonner MD [address] [place] [phone] PCP - General Internal Medicine 03/27/15 documented as of this encounter
--- OUTSIDE RECORDS SUMMARY | 2025-01-02 13:06 | XMS_ITS | Clinical Summary ---
Author Organization [employer] Address [address] [place] [address] 7t [place] [address] Care Team Providers Care Keller Machine Operator Name Role Phone Waldo Bonner [...] L5-S1. Pt referred to Dr. Pires at [facility] spine center. She was seen 02/20/2024 His [...] this, and he subsequently referred her to [facility] where she has been receiving [...] L5-S1. Pt referred to Dr. Pires at [facility] spine [facility] Assessment & Plan (11/15/2023 1:04 [...] EIN. He was last seen 02/11/2021 by [facility] COUNSELOR Oncology. She is now only under the care of Dr Kurtz. 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 He was last seen 02/11/2021 by HERB COUNSELOR Oncology. She is supposed to be now only under the care of Dr Kurtz. Last seen 11/01/2022 Congenital arteriovenous malformation 03/24/2023 03/24/2023 Assessment & Plan (03/24/2023 9:41 AM EST): Pt has a Hx of s subarachnoid bleed due to AVM and aneurysm 08/31/2014 in [place],. She underwent a cerebral angiogram, coil embolization [...] surgical repair Pt under the care of [facility] . Preventative health care 03/24/2023 Assessment & [...] Encounters Date Type Department Care Team Description 01/02/2025 Orders Only GENERIC EXTERNAL DATA DEPARTMENT Provider, Generic External Data 12/25/2024 Orders Only [facility] External Provider, [facility] 11/18/2024 Refill [facility] [address] [place] [address] Catherine Jackson MD Primary hypertension from Last [...] Depression Screening 11/14/2024 11/15/2023, 11/15/19 COVID-19 Vaccine ( - season) 2024 09/22/2020, 08/21/2020 Influenza Vaccine (#1) [...] EDT CEA Routine 01/02/2025 11:01 AM EDT US PELVIS TRANSVAGINAL Routine 12/25/2024 3:29 PM EDT LIPID PANEL, STANDARD Routine 02/15/2024 9:30 AM [...] Recently Relevant to Health Maintenance Results * Lactate Dehydrogenase (LD) (01/02/2025 11:01 AM EDT) Lactate Dehydrogenase 175 122 - 220 U/L [facility] 01/02/2025 11:0 1 AM EDT 01/02/2025 11:01 AM EDT us Generic External Data Provider LAB BLOOD ORDERAB LES Final Result Performing Organization Address [facility] Co de Phone Number [facility] [address] [place] [phone] * CEA (01/02/2025 11:01 AM EDT) Carcinoembryonic Antigen <1.73 ng/mL [facility] Comment:CEA Reference Range: 93.4% Non-Smokers = 0.0-3.0 ng/mL 95.6% Smokers = 0.0-5.0 ng/mLCEA Methodology: Szymanski Alinity i ChemiluminescentMicroparticle Immunoassay (CMIA)CEA testing can have significant value in monitoring ofpatients with diagnosed malignancies in whom changingconcentrations of CEA are observed. Values obtained withdifferent assay methods cannot be used interchangeably. 01/02/2025 11:0 1 AM EDT 01/02/2025 11:01 AM EDT Generic External Data Provider LAB BLOOD ORDERAB LES Final Result Performing Organization Address [facility] Co de Phone Number [facility] [address] [place] [phone] * US Pelvis Transvaginal (12/25/2024 3:29 PM EDT) Anatomical Region Laterality Modality Pelvis Ultrasound 12/25/2024 3:29 PM EDT Narrative 12/25/2024 3:59 PM EDT [address] [address] Ultrasound Report Signed Patient: Denise Boyce MR#: [id number] 3 : 1975 Acct:[id number] Age/Sex: 49 / F ADM Date: 12/25/24 Loc: HO.US Attending Dr: Eder Kurtz MD Ordering Physician: Eder Kurtz MD Date of Service: 12/25/24 Procedure(s): US pelvic and transvaginal Accession Number(s): [id number] cc: Waldo Thakkar MD; Eder Kurtz MD Reason for Exam: N83.299 - Other ovarian cyst, unspecified side EXAMINATION: US PELVIS CLINICAL INFORMATION: N83.299 - Other ovarian cyst, unspecified side COMPARISON: August 23, 2024 TECHNIQUE: Ultrasound of the pelvis is performed using both transabdominal and transvaginal transducers along with Doppler. Transvaginal imaging is performed due to inadequate visualization transabdominally. FINDINGS: Uterus: Hysterectomy Adnexa: There is no right ovarian torsion. There is no pelvic ascites or fluid collection. Right ovary measures 3.8 x 1.9 x 20 cm. Again noted are multiple ovarian cysts. The largest measures 17 mm and contains a thin septation. Left ovary is not visualized. US/US pelvic and transvaginal IMPRESSION: Persistent indeterminate left ovarian cyst with a septation 17 mm in diameter and likely decreased in size since the prior. Recommend either continued follow-up ultrasound with next Ultrasound in 6-12 weeks or MRI pelvis. Electronically signed by: Dean Kitchen MD 12/25/2024 03:56 PM EDT Dictated By: Dean Kitchen MD Signed By: <Electronically signed by Dean Kitchen MD in OV> 12/25/24 1556 DD/ 1529 TD/TT: 12/25/24 1539 Medical Billing Assistant: Procedure Note Donotuseinterpreter, Image - 12/25/2024 [place] [address] Ultrasound Report Signed Patient: Kushal Boyce#: [id number] 3 : 1975Acct:[id number] Age/Sex: 49 / FADM Date: 12/25/24 Loc: HO.US Attending Dr: Eder Kurtz MD Ordering Physician: Eder Kurtz MD Date of Service: 12/25/24 Procedure(s): US pelvic and transvaginal Accession Number(s): [id number] cc: Waldo Thakkar MD; Eder Kurtz MD Reason for Exam: N83.299 - Other ovarian cyst, unspecified side EXAMINATION: US PELVIS CLINICAL INFORMATION: N83.299 - Other ovarian cyst, unspecified side COMPARISON: August 23, 2024 TECHNIQUE: Ultrasound of the pelvis is performed using both transabdominal and transvaginal transducers along with Doppler. Transvaginal imaging is performed due to inadequate visualization transabdominally. FINDINGS: Uterus: Hysterectomy Adnexa: There is no right ovarian torsion. There is no pelvic ascites or fluid collection. Right ovary measures 3.8 x 1.9 x 20 cm. Again noted are multiple ovarian cysts. The largest measures 17 mm and contains a thin septation. Left ovary is not visualized. US/US pelvic and transvaginal IMPRESSION: Persistent indeterminate left ovarian cyst with a septation 17 mm in diameter and likely decreased in size since the prior. Recommend either continued follow-up ultrasound with next Ultrasound in 6-12 weeks or MRI pelvis. Electronically signed by: Dean Kitchen MD 12/25/2024 03:56 PM EDT RP Dictated By: Dean Kitchen MD Signed By: <Electronically signed by Dean Kitchen MD in OV> 12/25/24 1556 DD/ 1529 TD/TT: 12/25/24 1539 Medical Billing Assistant: us [facility] External Provider IMG US PROCEDURES Edited Result - Final * (ABNORMAL) Lipid Panel, Standard (02/15/2024 9:30 AM EST) Triglycerides 160(H) <150 mg/dL [facility] Comment:Desirable Triglyceri de: less than 150 mg/dLBorderline High Triglyceride 150-199 mg/dLHigh Triglyceride: 200-499 mg/dLVery High Triglyceride: greater than or equal to 5OO mg/dL Cholesterol 121 <200 mg/dL [facility] Comment:Desirable Cholestero l: less than 200 mg/dLBorderline High Cholesterol: 200-239 mg/dLHigh Cholesterol: greater than 239 mg/dL LDL Cholesterol Calculated 57 <100 mg/dL [facility] Comment:Desirable LDL: less than 100 mg/dLNear Optimal/Above Optimal LDL: 110- 129 mg/dLBorderline High LDL: 130-159 mg/dLHigh LDL: 160-189 mg/dLVery High LDL: greater than or equal to 190 mg/dL HDL Cholesterol 32(L) >40 mg/dL [facility] Comment:Desirable HDL: great er than 40 mg/dL Note: This HDL assay may give artificially low results in patients with liver disease. Blood Venous blood specimen / Unknown 02/15/2024 9:30 AM EST 02/15/2024 11:20 AM EST us Waldo Alicia MD LAB BLOOD ORDERABLES Final Result [facility] [address] [place] [phone] * BI Mammogram Screening Tomosynthesis Bilateral (01/03/2024 12:40 PM EDT) Anatomical Region Laterality Modality Breast Bilateral Mammography 01/03/2024 12:4 0 PM EDT Narrative 01/13/2024 8:16 PM EDT [address] [place] [address] Mammography Report Signed Patient: Denise Boyce MR#: [id number] 3 : 1975 Acct:[id number] Age/Sex: 48 / F ADM Date: 01/03/24 Loc: HO.MAMMO Attending Dr: Waldo Thakkar MD Ordering Physician: Eder Kurtz MD Results: 0Incompl ete: Needs Additional Imaging Evaluation Date of Service: 01/03/24 Follow Up: Additional Imagi ng Procedure(s): MM tomosynthesis screening BI Accession Number(s): [id number] cc: Waldo Thakkar MD; Eder Kurtz MD [...] OV> 01/13/242012 DD/ 1240 TD/TT: 01/03/24 1255 Medical Billing Assistant: Procedure Note Donotuseinterpreter, Image - [facility]/13/2024 [facility] [address] [place], [place] [address] Mammography Report Signed Patient: Kushal Boyce#: [id number] 3 : 1975Acct:[id number] Age/Sex: 48 / FADM Date: 01/03/24 Loc: HO.MAMMO Attending Dr: Waldo Thakkar MD Ordering Physician: Eder Kurtz MDResults: 0Incompl ete: Needs Additional Imaging Evaluation Date of Service: 01/03/24Follow Up: Additional Imagi ng Procedure(s): MM tomosynthesis screening BI Accession Number(s): [id number] cc: Waldo Thakkar MD; Eder Kurtz MD [...] OV> 01/13/242012 DD/ 1240 TD/TT: 01/03/24 1255 Medical Billing Assistant: [facility] External Provider IMG BI PROCEDURES Edited Result - Final * Hm Colonoscopy (05/12/2023) Colonoscopy Normal Normal Don Isabel MD HEALTH MAINTENANCE Final Result * HPV E6/E7 RFLX NEYDA 16 18/45 (09/22/2020 12:50 PM EDT) HPV mRNA E6/E7 rflx Not Detected Not Detected [facility] Comment: Methodology: Labor Gang Supervisor-Mediated Amplification This assay detects E6/E7 viral messenger RNA (mRNA) from 14 high-risk HPV types (16,18,31,33,35,39,45,51,52,56,58,59,66,68). The analytical performance characteristics of this assay have been determined by [employer]. The modifications have not been cleared or approved by the FDA. This assay has been validated pursuant to the CLIA regulations and is used for clinical purposes. For additional information, please refer to http://education.[employer].Flyezee.com/faq/LVF533z6 (This link if provided for information/ educational purposes only.) THIS TEST WAS PERFORMED AT: [facility] [address] [place] [address] [address]LO[address],[place] [address] LUIS E JI MD 09/22/2020 12:5 0 PM EDT Eder Kurtz MD HISTORICAL/NON ORDERABLE LABS Fi nal Result [facility] [address] * Pap Smear (09/22/2020) Historical Provider HEALTH MAINTENANCE Final Result from Last 3 Months or Most Recently Relevant to Health Maintenance Insurance CCA ONE CARE < 65 CCA ONE CARE < 65 [place] [id number] DENTAL - [facility] Care Teams Keller Machine Operator Relationship Specialty Start Date End Date Waldo Bonner MD [address] [place] [phone] PCP - General Internal Medicine 03/27/15
--- OUTSIDE RECORDS SUMMARY | 2025-01-02 13:06 | XMS_ITS | Encounter Summary ---
Author Organization [employer] Address [address] [place] [address] 7 [place] [address] Care Team Providers Care Environmental Intern Name Role Phone Waldo Bonner MD Primary Care Provide r Reason for Visit * Reason Onset Date Comments appt 06/01/2023 Encounter Details Date Type Department Care Team ([facility] st Contact Info) Description 06/01/2023 Telephone [facility] ADULT DENTAL [address] [place] [address] Jeison Taylor DDS [address] [place] [address] appt Social History Tobacco Use Types Packs/Day [...] Taylor. However,she was on wait list in [facility] since 08/2021 and was checking in on it. Wait list does not transfer to [facility] and would like to be [...] documented as of this encounter Care Teams Environmental Intern Relationship Specialty Start Date End Date Waldo Bonner MD [address] [place] [address] PCP - General Internal Medicine 03/27/15 documented as of this encounter
--- OUTSIDE RECORDS SUMMARY | 2025-01-02 13:07 | XMS_ITS | Encounter Summary ---
Author Organization [employer] Address [address] [place] [address] [address] [place] [address] Care Team Providers Care Mountain Bike Guide Name Role Phone Waldo Bonner MD Primary Care Provide r Reason for Visit * Reason Comments Med Refill Encounter Details Date Type Department Care Team ([facility] st Contact Info) Description 03/18/[address] [facility] MEDICINE [address] [place] [address] Nicole Lyles FNP Social History Tobacco Use [...] on filedocumented in this encounter Care Teams Mountain Bike Guide Relationship Specialty Start Date End Date Waldo Bonner MD [address] [place] [address] PCP - General Internal Medicine 03/27/15 documented as of this encounter
--- OUTSIDE RECORDS SUMMARY | 2025-01-02 13:07 | XMS_ITS | Encounter Summary ---
Author Organization [employer] Address [address] [place] [address] 7 [place] [address] Care Team Providers Care Clinic Nurse Name Role Phone Waldo Bonner MD Primary Care Provide r Encounter Details Date Type Department Care Team (Latest Contact Info) Description 11/10/2018 Abstract [facility] Dental, Provider, DDS Social History Tobacco [...] on filedocumented in this encounter Care Teams Clinic Nurse Relationship Specialty Start Date End Date Waldo Bonner MD [address] [place] [address] PCP - General Internal Medicine 03/27/15 documented as of this encounter
--- OUTSIDE RECORDS SUMMARY | 2025-01-02 13:07 | XMS_ITS | Encounter Summary ---
Author Organization [employer] Address [address] [place] [address] 7 [place] [address] Care Team Providers Care Periodontist Name Role Phone Waldo Bonner MD Primary Care Provide r Encounter Details Date Type Department Care Team ([facility] st Contact Info) Description 04/13/2022 Orders Only [facility] MEDICINE [address] [place] [address] Carmen Mello, RN Social History Tobacco Use [...] on filedocumented in this encounter Care Teams Periodontist Relationship Specialty Start Date End Date Waldo Bonner MD [address] [place], [place] [phone] PCP - General Internal Medicine 03/27/15 documented as of this encounter
--- OUTSIDE RECORDS SUMMARY | 2025-01-02 13:07 | XMS_ITS | Encounter Summary ---
Author Organization [employer] Address [address] [place] [address] 7 [place] [address] Care Team Providers Care Print Decorator Name Role Phone Waldo Bonner MD Primary Care Provide r Reason for Visit * Reason Comments Med Refill Encounter Details Date Type Department Care Team ([facility] st Contact Info) Description 01/12/2023 Refill [facility] MEDICINE [address] [place], [place] [phone] Waldo Bonner MD [address] [place] [address] Primary hypertension Social History Tobacco Use Types [...] hypertension documented in this encounter Care Teams Print Decorator Relationship Specialty Start Date End Date Waldo Bonner MD [address] [place] [address] PCP - General Internal Medicine 03/27/15 documented as of this encounter
[2025-01-04 12:24] LABS: CA-125 6 U/mL (<35)
== END 2025-01-02 09:43 | disposition home or self-care (01) ==
LOC: HO.LAB 09:42
PROVIDERS: PCP Internal Medicine; Visit Provider Obstetrics & Gynecology
DX: Z01.419 Encounter for gynecological examination (general) (routine) without abnormal findings (principal); N83.299 Other ovarian cyst, unspecified side; Z98.51 Tubal ligation status
CPT/HCPCS: 36415; 82105; 82378; 83520; 83615; 86301; 86304; 86336; 87626; 88175; 99212; G0101; Q0091

== ENCOUNTER 2025-01-07 12:45 | Outpatient (REF) | payer OTHER, SELFPAY ==
--- OUTSIDE RECORDS SUMMARY | 2025-01-07 13:53 | XMS_ITS | Clinical Summary ---
Author Organization [facility] Address [address] [place] [address] Phone Care Team Providers Care Cloud Operations Engineer Name Role Phone Waldo Cullen MD Primary [...] 12/03/1995 Influenza Vaccine (#1) 2024 01/25/2018 Insurance [facility] One Care Dual SNP ([id number]) [place] [id number] [facility] One Care Dual SNP ([id number]) Care Teams Cloud Operations Engineer Relationship Specialty Start Date End Date Waldo Cullen MD PCP - General Internal Medicine 10/07/21
--- OUTSIDE RECORDS SUMMARY | 2025-01-07 13:53 | XMS_ITS | Patient Health Record ---
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 Problem Aneurysm (06186568) Aneurysm (I72.9) Active confirmed Plan Of Treatment No Information Insurance Providers Payer Name Payer Address Payer Phone Subscriber Number Group Number Insured Name Patient Relationship to Insured Coverage Start Date Coverage End Date [facility] [id number] [place] [address] [phone] [id number] Denise Boyce Self - patient is the insured [facility] [address] [place] [address] [id number] Denise Boyce Self - patient is the insured Medical (General) History Surgical History Surgery Date(Month/Year) Therapies; 2014-10-17 None listed; 2014-10-17
--- OUTSIDE RECORDS SUMMARY | 2025-01-07 13:53 | XMS_ITS | Clinical Summary ---
Author Organization [facility] Address [address] [place] [address] Phone Care Team Providers Care Campus Wellness Coordinator Name Role Phone Waldo Thakkar MD Primary [...] patient's age to complete this topic Insurance [facility] MEDICARE Member Subscriber Plan / Payer (Ef fective 2018-Present) Name:Denise Boyce Relation to Subscriber:Self Name:Denise Boyce Payer ID:[id number] Group ID:[id number] Type:Not on file Address: [address] [id number] Care Teams Campus Wellness Coordinator Relationship Specialty Start Date End Date Waldo Thakkar MD [address] [place] [address] PCP - General Internal Medicine 05/08/24
--- OUTSIDE RECORDS SUMMARY | 2025-01-07 13:53 | XMS_ITS | Encounter Summary ---
Author Organization [facility] Address [address] [place] [address] Phone Care Team Providers Care Qa Automation Engineer Name Role Phone Waldo Cullen MD Primary Care Provider Unav ailable Encounter Details Date Type Department Care Team (Late st Contact Info) Description 02/11/2022 Documentation Only [facility] [address] [place] [phone] Leatha Alicia Social History Tobacco Use Types [...] on filedocumented in this encounter Care Teams Qa Automation Engineer Relationship Specialty Start Date End Date Waldo Cullen MD PCP - General Internal Medicine 10/07/21 documented as of this encounter
== END 2025-01-07 12:46 | disposition home or self-care (01) ==
LOC: HO.MAMMO 12:45
PROVIDERS: PCP Internal Medicine; Visit Provider Internal Medicine
DX: Z12.31 Encounter for screening mammogram for malignant neoplasm of breast (principal)
CPT/HCPCS: 77063; 77067

== ENCOUNTER → 2025-01-07 13:00 | Outpatient (BNV) | payer OTHER, SELFPAY | PROVIDERS: PCP Internal Medicine; Visit Provider Internal Medicine | DX: Z12.31 Encounter for screening mammogram for malignant neoplasm of breast (principal) | CPT/HCPCS: 77063; 77067 ==

== ENCOUNTER 2025-02-26 10:10 | Outpatient (AMB) | payer OTHER, SELFPAY ==
--- NOTE | 2025-02-26 10:54 | A.OFFVIS_ITS ---
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 In February of 2015 the AVM was resected also in [place]. She also has a history of chronic migraine for which she has been managed on as-needed Fioricet for quite some time. At the time of our last visit together she explained that she was having daily headaches worse in the morning hours typically improving somewhat throughout the day. Headaches were becoming severe at times for which she would take a Fioricet for abortive therapy. She estimates that she was taking Fioricet 2-3 times per week. Headaches often described a pressure sensation to the bitemporal areas. Headaches often accompanied by light and sound sensitivity as well as nausea and headaches could become severe in intensity. Nonspecific in any specific position. Caffeine could help at times for abortive measures. Fioricet was approximately 75% effective for acute therapy. She was having some difficulty with anxiety and sleep at last visit. She explained she was taking mirtazapine 7.5 mg at bedtime but was still feeling tired in the morning as if she had not slept well during the night. She has not had a sleep study. We did at last visit advise for a sleep study though this was never completed for unclear reasons. During our last visit, I started her on Emgality injections for headache management. She has only been on this medication for approximately 1 month though has not yet seen any difference in her headaches except for perhaps a very modest reduction in the severity of her headaches. She does note that her blood pressure has been fluctuating and she is concerned about the side effect of this medication. Her blood pressure today however was normal. She has been monitoring at home closely and does have an upcoming appointment with her primary care provider. She also updates me notify me that on 02/06/2025 she did have an ovary removal which has induced menopause. She is working with her OBGYN provider and will be starting her on hormonal replacement therapy but she has not yet started this. She plans to pick this up in the pharmacy soon. Because of the hormonal changes, she has had some sleep deficit and she has noticed some hot flashes. Past medication trials: Fioricet currently taking with 75% efficacy Losartan-takes for blood pressure Mirtazapine 7.5 mg at bedtime for sleep Sertraline 300 mg daily for moods Prior workup: Last MRI of the brain in 2019. No report available for review. 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, low grade (MORIS 1) HTN (hypertension) Surgical History Hx of colonoscopy H/O brain surgery H/O knee surgery History of hysterectomy History of bilateral tubal ligation H/O LEEP Family History Father Colon cancer Mother HTN (hypertension) Social History Household Members: Family Housing: House Alcohol intake: never Patient Tobacco Use Status: Former Tobacco user Years Smoked: 10 service: No Current occupational status: unemployed Sexual orientation: Straight/Heterosexual Gender identity: Female Female Reproductive History Menstrual Age of Menarche: 13 Review of Systems Const All systems reviewed & are unremarkable except as noted in HPI and below Physical Exam Exam Exam: Tenderness with palpation to the right occipital notch area. Vital Signs: Last Vital Signs Pulse 72 02/26/25 10:59 Resp 16 02/26/25 10:59 BP 128/76 02/26/25 10:59 Pulse Ox 98 02/26/25 10:59 Oxygen Delivery Method Room Air 02/26/25 10:59 BMI result Body Mass Index 29.0 Const General: cooperative, healthy appearing, comfortable and no acute distress Nutritional Appearance: well nourished Orientation/consciousness: patient oriented x3 Limitations: no limitations HEENT Head: Yes normal to inspection and Yes normocephalic Eyes General: appearance normal, both eyes and all related structures Visual Davenport: normal visual davenport by confrontation Alignment and Position: alignment normal Periorbital: periorbital findings normal Eyelids: Yes eyelids normal Conjunctivae: conjunctivae normal Sclerae: sclerae normal Direct Ophthalmoscopy: normal light reflex Neck Neck: Yes normal visual inspection and Yes full ROM General: Yes no CVA tenderness Back/Spine/Pelvis Back: no CVA tenderness Cervical Spine: normal cervical lordosis Thoracic/Lumbar Spine: thoracic and lumbar spine normal to inspection Neuro General: patient oriented x3, tone normal and deep tendon reflexes 2+ bilaterally Cranial nerves: Yes CN's II-XII intact bilaterally and Yes Facial sensation intact/muscles of mastication intact Cognition (Neuro): normal cognition Gait exam (Neuro): Normal gait present Motor exam (neuro): 5/5 motor strength present throughout and no tremor noted Sensory Exam: double simultaneous stimulation for sensation normal Romberg Test: Negative Pupils: Normal pupillary reactivity/response: bilateral Psych Appearance: grossly normal Mental Status: mental status grossly normal Speech and movement: Normal speech and movement present and Clear speech present Affect: normal affect Attitude: cooperative Thought process: Normal thought process present Thought content: Normal thought content present Insight: Good insight present (Psych) Judgement: Good judgement present (Psych) Assessment & Plan Assessment & Plan (1) Chronic migraine without aura without status migrainosus, not intractable: Code(s): G43.709 - Chronic migraine without aura, not intractable, without status migrainosus Category: Medical (2) Morning headache: Code(s): R51.9 - Headache, unspecified Category: Medical (3) Poor sleep pattern: Code(s): G47.8 - Other sleep disorders Category: Medical Plan Denise is a 49-year-old female patient with a past medical history of migraine, 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 She is here today for headache follow-up. She was recently started on Emgality though has not yet seen much of a difference in her headaches aside from a very modest improvement in her head pain. She does continue to have headaches daily 2-3 of which are more intense for which she will take Fioricet. I would like to continue on the Emgality for now as some of her more recent headaches may have been induced due to some hormonal changes after an oophorectomy on 02/06/2025. We still have not yet obtained a sleep study and I will check on the scheduling for this. In the meantime, for her sleep disturbances, I will increase her mirtazapine slightly to 15 mg to assist with sleep while she starts on the estrogen patch. Eventually, I would like to see her this back down to her original dosing. -continue Emgality injections -continue as needed Fioricet use sparingly -increase mirtazapine from 7.5 mg to 15 mg at bedtime for recent sleep disturbances. Eventually we can taper this back down -sleep study -continue to monitor blood pressure at home -follow up in 3 months or sooner if needed Medications: Changed From mirtazapine 7.5 mg PO BEDTIME To mirtazapine 15 mg (2 x 7.5 mg) PO BEDTIME 60 tabs 3RF 30 days Coding Level of Care Code Est Pt Level 4 (96089) Diagnoses Chronic migraine without aura without status migrainosus, not intractable G43.709 Morning headache R51.9 Poor sleep pattern G47.8
[2025-02-26 10:59] VITALS: BP 128/76; PULSE 72; RESP 16; O2SAT 98; BMI 29.0
== END 2025-02-26 11:16 | disposition home or self-care (01) ==
LOC: HO.HSM 10:10
PROVIDERS: PCP Internal Medicine; Visit Provider Nurse Practitioner
DX: G43.709 Chronic migraine without aura, not intractable, without status migrainosus (principal); R51.9 Headache, unspecified; G47.8 Other sleep disorders
CPT/HCPCS: 99214

== ENCOUNTER → 2025-02-26 10:10 | Outpatient (BNVA) | payer OTHER, SELFPAY | PROVIDERS: PCP Internal Medicine; Visit Provider Nurse Practitioner | DX: G43.709 Chronic migraine without aura, not intractable, without status migrainosus (principal); G47.8 Other sleep disorders; I10 Essential (primary) hypertension | CPT/HCPCS: 99212 ==